=== PATIENT | female | born 1945 | race Caucasian/White ===

== ENCOUNTER 2024-02-06 09:22 | Outpatient (CLI) | payer MEDICARE, SELFPAY ==
[2024-02-06 18:47] LABS: Basophils # 0.1 K/mm3 (0-0.2); Eosinophils # 0.1 K/mm3 (0.0-0.4); Eosinophils % 2.1 % (0.1-12.0); Hematocrit 46.1 % (37.0-47.0); Hemoglobin 14.2 g/dL (12.2-16.2); Lymphocytes # 1.5 K/mm3 (0.7-4.5); Lymphocytes % 30.6 % (10-50); Mean Corpuscular HGB Conc 30.8 g/dL (31.8-35.4); Mean Corpuscular Hemoglobin 29.7 pg (27.0-31.2); Mean Corpuscular Volume 96.3 fl (81-99); Mean Platelet Volume 8.6 fl (7.4-10.4); Monocytes # 0.4 K/mm3 (0.1-1.0); Neutrophils # 2.9 K/mm3 (1.8-7.8); Neutrophils % 58.3 % (37.0-80.0); Platelet Count 252 K/mm3 (142-424); Red Blood Count 4.79 M/mm3 (4.20-5.40); Red Cell Distribution Width 14.1 % (11.5-17.5)
[2024-02-06 19:13] LABS: Alanine Aminotransferase 18 U/L (12-78); Albumin/Globulin Ratio 1.3 (1.1-1.8); Alkaline Phosphatase 99 U/L (38-126); Anion Gap 9.5 mEq/L (5-15); Aspartate Amino Transferase 29 U/L (14-36); Bilirubin,Total 0.6 mg/dl (0.2-1.3); Blood Urea Nitrogen 20 mg/dl (7-17); Carbon Dioxide 28 mmol/L (22.0-30.0); Chloride 106 mmol/L (98-107); Chol/HDL Ratio 5.7 (1-3.5); Cholesterol 258 mg/dl (140-200); Estimated Glomerular Filt Rate 81 ml/min (>60); GFR (African American) 98 ML/MIN (>60); Glucose 113 mg/dl (74-100); HDL Cholesterol 45 mg/dl (40-60); Potassium 4.5 mmoL/L (3.5-5.1); Sodium 139 mmol/L (136-145); Triglycerides 190 mg/dl (30-150); VLDL Cholesterol 38 mg/dL (0-40)
[2024-02-06 19:25] LABS: Direct LDL Cholesterol 163.31 mg/dL (100-129)
[2024-02-06 19:29] LABS: T4 (Thyroxine) 9.4 ug/dl (5.53-11.0)
[2024-02-06 19:43] LABS: Thyroid Stimulating Hormone 2.14 uIU/mL (0.465-4.68)
[2024-02-06 21:12] LABS: Hemoglobin A1C 6.1 % (4.0-6.0)
== END 2024-02-06 23:59 | disposition home or self-care (01) ==
LOC: LAB.DROPOF 02-09 09:23
PROVIDERS: PCP Family Medicine; Visit Provider Family Medicine
DX: E78.5 Hyperlipidemia, unspecified (principal); E11.9 Type 2 diabetes mellitus without complications; Z76.89 Persons encountering health services in other specified circumstances; E07.9 Disorder of thyroid, unspecified
CPT/HCPCS: 80050; 80053; 80061; 83036; 84436; 84443; 85025

== ENCOUNTER 2024-07-21 20:57 | Outpatient (CLI) | payer MEDICARE, SELFPAY ==
[2024-07-21 21:14] LABS: Basophils % 0.4 % (0.1-2.0); Eosinophils # 0.1 K/mm3 (0.0-0.4); Eosinophils % 1.6 % (0.1-12.0); Hematocrit 43.5 % (37.0-47.0); Hemoglobin 14.3 g/dL (12.2-16.2); Lymphocytes # 1.7 K/mm3 (0.7-4.5); Lymphocytes % 33.9 % (10-50); Mean Corpuscular HGB Conc 32.9 g/dL (31.8-35.4); Mean Corpuscular Hemoglobin 30.2 pg (27.0-31.2); Mean Platelet Volume 10.8 fl (7.4-10.4); Monocytes # 0.5 K/mm3 (0.1-1.0); Monocytes % 9.2 % (1.7-9.3); Neutrophils # 2.7 K/mm3 (1.8-7.8); Neutrophils % 54.7 % (37.0-80.0); Platelet Count 210 K/mm3 (142-424); Red Blood Count 4.73 M/mm3 (4.20-5.40); Red Cell Distribution Width 13.3 % (11.5-17.5); White Blood Count 4.9 K/mm3 (4.8-10.8)
[2024-07-21 21:32] LABS: Albumin Level 4.4 g/dl (3.5-5.0); Chloride 105 mmol/L (98-107); Sodium 139 mmol/L (136-145)
[2024-07-21 21:33] LABS: Potassium 4.6 mmoL/L (3.5-5.1)
[2024-07-21 21:35] LABS: Alanine Aminotransferase 20 U/L (12-78); Albumin/Globulin Ratio 1.9 (1.1-1.8); Alkaline Phosphatase 98 U/L (38-126); Anion Gap 12.6 mEq/L (5-15); Aspartate Amino Transferase 30 U/L (14-36); Bilirubin,Total 0.7 mg/dl (0.2-1.3); Blood Urea Nitrogen 21 mg/dl (7-17); Carbon Dioxide 26 mmol/L (22.0-30.0); Cholesterol 236 mg/dl (140-200); Estimated Glomerular Filt Rate 97 ml/min (>60); GFR (African American) 117 ML/MIN (>60); Globulin 2.3 g/dL (1.3-3.2); Total Protein,Serum 6.7 g/dl (6.3-8.2); Triglycerides 166 mg/dl (30-150); VLDL Cholesterol 33 mg/dL (0-40)
[2024-07-21 21:36] LABS: Calcium 9.8 mg/dl (8.4-10.2); Chol/HDL Ratio 7.2 (1-3.5); Glucose 111 mg/dl (74-100); HDL Cholesterol 33 mg/dl (40-60)
[2024-07-21 21:47] LABS: Direct LDL Cholesterol 150.09 mg/dL (100-129)
[2024-07-21 21:52] LABS: T4 (Thyroxine) 10.5 ug/dl (5.53-11.0)
[2024-07-21 22:06] LABS: Thyroid Stimulating Hormone 2.14 uIU/mL (0.465-4.68)
== END 2024-07-21 23:59 | disposition home or self-care (01) ==
LOC: LAB.DROPOF 20:57
PROVIDERS: PCP Family Medicine; Visit Provider Family Medicine
DX: R63.5 Abnormal weight gain (principal); E11.9 Type 2 diabetes mellitus without complications; Z68.38 Body mass index [BMI] 38.0-38.9, adult
CPT/HCPCS: 80053; 80061; 84436; 84443; 85025

== ENCOUNTER 2024-07-30 14:09 | Outpatient (CLI) | payer MEDICARE, SELFPAY ==
--- NOTE | 2024-07-30 14:11 | US_ITS ---
FINAL REPORT TECHNIQUE: Sonographic images of the thyroid gland were obtained in the longitudinal and transverse planes. CLINICAL HISTORY: Hyperthyroidism FINDINGS: The right lobe measures 2.3 x 5.5 x 2.2 cm. There are multiple right thyroid nodules. A mixed cystic and solid nodule measures 18 mm in long axis. This is a TI-RADS category 3 there is a 14 mm hypoechoic nodule that is a TI-RADS category 4. There are several smaller nodules which are TI-RADS category 3 or 4. The left lobe measures 3.0 x 5.9 x 2.5 cm. There is a 4 cm hypoechoic nodule with macrocalcifications. This is a TI-RADS category 4. There are several additional very small nodules on the left which may be tiny colloid cysts. The isthmus measures 12 mm. This is enlarged. There is an isoechoic nodule in the isthmus measuring 16 mm. This is a TI-RADS category 3. IMPRESSION: 1. TI-RADS category 4 right thyroid nodule. Based on size, follow-up is recommended. 2. TI-RADS category 4 left thyroid nodule. FNA recommended. 3. Additional nodules. Favor multinodular goiter. These nodules can be followed up on follow-up for the right TI-RADS category 4 nodule. Authenticated and ERN
== END 2024-07-30 23:59 | disposition home or self-care (01) ==
LOC: RAD 14:11
PROVIDERS: PCP Family Medicine; Visit Provider Family Medicine
DX: E04.9 Nontoxic goiter, unspecified (principal); E05.90 Thyrotoxicosis, unspecified without thyrotoxic crisis or storm
CPT/HCPCS: 76536

== ENCOUNTER 2024-08-20 09:02 | Outpatient (CLI) | payer MEDICARE, SELFPAY ==
--- NOTE | 2024-08-20 09:03 | US_ITS ---
FINAL REPORT CLINICAL HISTORY: KARLA KHAN -- LT THYROID NODULE FINDINGS: Ultrasound guided thyroid biopsy. HISTORY: Thyroid mass. PROCEDURE: After informed consent was obtained and a time-out was performed, the patient was prepped and draped in usual sterile fashion over the anterior neck. Utilizing local anesthesia and sterile technique with a 25-gauge needle, access to the lesion was obtained. Four passes were made. The patient received no conscious sedation. The patient tolerated the procedure well and left the department in good condition. IMPRESSION: Status post ultrasound guided biopsy of a thyroid nodule without immediate complication. Films reviewed , interpreted and dictated by Dr. Richey. Transcribed by Karla Jameson PA-C. Reviewed, Interpreted and Dictated by Markus Richey MD Transcribed by ERIN Centeno Authenticated and [facility]
== END 2024-08-20 23:59 | disposition home or self-care (01) ==
LOC: RAD 09:03
PROVIDERS: PCP Family Medicine; Visit Provider Nurse Practitioner
DX: E04.1 Nontoxic single thyroid nodule (principal)
CPT/HCPCS: 10005; 88173; 88305

== ENCOUNTER 2024-10-01 07:46 | Outpatient (CLI) | payer MEDICARE, OTHER, SELFPAY ==
[2024-10-01 18:25] LABS: T4 (Thyroxine) 11.2 ug/dl (5.53-11.0)
[2024-10-01 18:37] LABS: Hemoglobin A1C 5.8 % (4.0-6.0)
[2024-10-01 18:38] LABS: Thyroid Stimulating Hormone 0.04 uIU/mL (0.465-4.68)
== END 2024-10-01 23:59 | disposition home or self-care (01) ==
LOC: LAB.DROPOF 10-02 07:46
PROVIDERS: PCP Family Medicine; Visit Provider Family Medicine
DX: E05.90 Thyrotoxicosis, unspecified without thyrotoxic crisis or storm (principal); E11.9 Type 2 diabetes mellitus without complications
CPT/HCPCS: 83036; 84436; 84443

== ENCOUNTER 2024-10-14 14:48 | Outpatient (CLI) | payer MEDICARE, OTHER, SELFPAY | END 2024-10-14 23:59 | disposition home or self-care (01) | LOC: RT 14:52 | PROVIDERS: PCP Family Medicine; Visit Provider Internal Medicine | DX: R00.1 Bradycardia, unspecified (principal) | CPT/HCPCS: 93270 ==

== ENCOUNTER 2024-11-03 10:53 | Outpatient (CLI) | payer MEDICARE, OTHER, SELFPAY ==
--- NOTE | 2024-11-03 | CA_ITS ---
APPROVED REPORT Exam: Pharmacologic Technologist: Karen Riddle Ht: 5 ft 5 in Wt: 212 lbs BSA: 2.03 m2 HR: 48 bpm BP: 172/94 mmHg Stress Test Details Test: Lexiscan HR Resting HR: 48 bpm Max Heart Rate (APMHR): 142.761445 bpm Max HR Achieved: 79 bpm Target HR (85% APMHR): 120.712459 bpm % of APMHR: 55.63 Recovery HR: 56 bpm BP Resting BP: 172.0/94.0 mmHg Max BP: 183.0/75.0 mmHg Recovery BP: 162.0/84.0 mmHg ECG Stress ECG Conclusion Symptoms: shortness of breath with lexiscan infusion. Neck tightness, arm numbness and pain Arrhythmias/Ectopy: PVCs noted ST-T Changes: Unremarkable with Lexiscan Electronically signed by : Melina Hernandez MD 11/03/2024 23:32:32
--- NOTE | 2024-11-03 10:56 | CA_ITS ---
APPROVED REPORT EXAM: Comprehensive 2D, Doppler, and color-flow Echocardiogram Sql Tech: Sabrina Ashley CRT Ht: 5 ft 5 in Wt: 212lbs BSA: 2.03 BP: 182/68 mmHg Indications: Chest Pain, Diabetes, Palpitations, Hypertension/HDD, Ervin cell cancer 2D Dimensions Left Atrium 3.76 cm LVEF (Salinas's) 51.00 % RVID Base (AP4) 2.54 cm (M/F) 2.5-4.1 LV Volume 101.90 mL LVOT 1.91 cm (M/F) 1.5-2.5 LA Volume 45.50 mL LA Volume Index 22.40 mL/m2 (M/F) 16-34 EF AP4 53.00 % EF AP2 47.3 % EF BP 51.0 % GL Strain -21.5 % M-Mode Dimensions RVDd 3.42 cm (0.9-2.6) LVDd 5.02 cm (3.5-5.7) Ao Diam 3.89 cm (2.0-3.7) LVDs 3.24 cm (3.5-5.7) IVSd 1.14 cm (0.6-1.1) PWd 0.89 cm (0.6-1.1) EF (Teich) 64.60% FS 35.50% EDV (Teich) 119.30 mL ESV (Teich) 42.20 mL LV Diastology E Decel Time 200 (160-240 msec) E/A Ratio 0.69 Aortic Valve LVOT Max 115.0 (70-110 cm/s) MIRZA Index 1.03 cm2/m2 LVOT VTI 29.24 cm AoV Peak Cisco. 195.0 (50-130 cm/s) AI PHT 636.00 ms AO Peak GR. 10.80 mmHg AO Mean GR. 7.70 (<5 mmHg) AO VTI 40.0 (18-25 cm) MIRZA (VTI) 2.10 (2.5-4.5 cm2) Mitral Valve MV E Max Cisco. 57.0 (40-130 cm/s) MV A Velocity 83.0 (40-130 cm/s) E/A Ratio 0.69 MV Decel. Time 200 (160-240 ms) Tricuspid Valve TR P. Velocity 177.00 cm/s RAP Estimate 10.00 mmHg RVSP 22.60 mmHg Left Ventricle The left ventricle is normal size. The left ventricular systolic function is normal. The left ventricular ejection fraction is within the normal range. There is increased LV wall thickness. There is normal LV segmental wall motion. Transmitral Doppler flow pattern suggests impaired LV relaxation. LVEF is 55%. Right Ventricle The right ventricle is normal size. The right ventricular systolic function is normal. Atria The left atrium is mildly dilated. The right atrium size is normal. Color Doppler is indeterminate for evaluation of interatrial shunt. Aortic Valve Aortic valve is mildly thickened. There is no aortic valvular stenosis. Mild aortic regurgitation. Mitral Valve The mitral valve is normal in structure. No evidence of mitral valve stenosis. Mild mitral regurgitation. Tricuspid Valve Tricuspid valve is grossly normal in structure and function. Trace tricuspid regurgitation. There is insufficient TR jet to estimate RVSP. Pulmonic Valve The pulmonary valve is normal in structure. Trace pulmonic regurgitation. Great Vessels The aortic root is normal in size. The ascending aorta is normal in size. IVC is normal in size and collapses >50% with inspiration. Pericardium There is no pericardial effusion. Other Information Study Quality: Fair Conclusion Normal biventricular systolic function. Mild LA dilation. Mild AI, mild MR. Color Doppler is indeterminate for evaluation of interatrial shunt. Electronically signed by : Melina Hernandez MD 11/08/2024 22:19:54
--- NOTE | 2024-11-03 12:00 | NM_ITS ---
APPROVED REPORT Exam: Nuclear Stress Test Indication: cp..soa..plapitations..fatigue Patient Location: Outpatient Stress Tech: Karen Riddle NM Tech:Daija Gutierrez, ARRT, RT (R)(N) Ht: 5 ft 6 in Wt: 215 lbs Bra Size: 44c HR: 66 bpm BP: 172/94 mmHg BSA: 2.06 m2 TID: 1.13 BMI: 34.6 History: cp..soa..plapitations..fatigue Procedure: Patient received 0.4 mg of intravenous Lexiscan, resting heart rate 66 bpm, resting blood pressure 172/94 mmHg, with Lexiscan maximum heart rate achieved was 80 bpm which is 85 % of the maximum predicted heart rate and blood pressure was 183/75 mmHg. With Lexiscan, patient denied any complaint of chest pain. Cardiac Stress and Resting SPECT Images: Cardiac Stress and Resting SPECT images were obtained using technetium 99m Myoview 32.4 mCi stress and 10.98 mCi at rest. Technically difficult study due to significant soft tissue overlap of the cardiac borders. This may affect the diagnostic interpretation of the study findings. Resting and stress imaging in supine and prone positions demonstrate a small sized, moderate, reversible perfusion defect in the basal inferior LV wall. Gated imaging demonstrates normal global LV systolic function. LVEF is calculated at 59%. Conclusion: Technically difficult study. Small sized, moderate, reversible perfusion defect in the basal inferior LV wall. Findings are suggestive of reversible ischemia. Gated imaging demonstrates normal global LV systolic function. LVEF is calculated at 59%. Electronically signed by : Melina Hernandez MD 11/03/2024 23:28:53
[2024-11-03] MEDS: REGADENOSON 0.4MG/5ML SYRINGE 0.4 MG IV (14:33)
[2024-11-03] MEDS: SODIUM CHLORIDE 0.9% 10ML SYR (RAD ONLY) 10 ML IV ×2 (14:34)
[2024-11-03] MEDS: ISOTOPE MYOVIEW (PER STUDY) 1 DOSE IV (14:34)
== END 2024-11-03 23:59 | disposition home or self-care (01) ==
LOC: RT 10:54
PROVIDERS: PCP Family Medicine; Visit Provider Internal Medicine
DX: I08.0 Rheumatic disorders of both mitral and aortic valves (principal); I11.9 Hypertensive heart disease without heart failure; I49.3 Ventricular premature depolarization; C4A.9 Merkel cell carcinoma, unspecified; R94.31 Abnormal electrocardiogram [ECG] [EKG]; R94.39 Abnormal result of other cardiovascular function study; E11.9 Type 2 diabetes mellitus without complications
CPT/HCPCS: 78452; 93017; 93018; 93306; A9502; J2785

== ENCOUNTER 2025-01-21 09:02 | Outpatient (CLI) | payer MEDICARE, OTHER, SELFPAY ==
--- OUTSIDE RECORDS SUMMARY | 2024-12-28 13:00 | XMS_ITS | Encounter Summary ---
Author Organization [facility] Address [address] [place] [address] Care Team Providers Care Art Therapy Specialist Name Role Phone Ernesto Hernandez MD Primary Care Provider [phone] Reason for Visit * Reason Comments LOW TSH Encounter Details Date Type Department Care Team (Late st Contact Info) Description 12/28/2024 1:00 PM EDT Office Visit [facility] [address] [address] Mamadou Singletary PA-C [address] [place], [place] [address] [address] Hyperthyroidism (Primary Dx); Multinodular goiter Social History Tobacco Use Types Packs/Day Years Used Date Smoking Tobacco: Never Passive Smoke Exposure: Never Smokeless Tobacco: Never Alcohol Use Standard Drinks/Week Comments Never 0 (1 standard drink = 0.6 oz pur e alcohol) Abuse Screen Answer Date Recorded Unsafe at Home or Work/School Not on file Feels Threatened by Someone? Not on file 02/2023 Does Anyone Keep You from Co ntacting Others or Doint Things Outside the Home? Not on file 03/17/2023 Physical Sign of Abuse Present Not on file 1 Housing Stability Answer Date Recorded Current Living Arrangements Not on file 02/2023 Potentially Unsafe Housing Conditions Not on jorge e 03/17/2023 Family and Community Support Answer Paul e Recorded Help with Day-to-Day Activities Not on file 03/17/2023 Lonely or Isolated Not on file 03/17/2023 Employment Answer Date Recorded Do you want help finding or keeping work or a franki b? Not on file 03/17/2023 Disabilities Answer Date Recorded Concentrating, Remembering, or Making Decisions Difficulty Not on file 03/17/2023 Doing Errands Independently Difficulty Not on fi le 03/17/2023 Education Answer Date Recorded Help with school or training? Not on file Preferred Language Not on file 03/17/2023 Comments Unknown Sex and Gender Information Value Date Recorded Sex Assigned at Not on file Legal Sex Female 8:09 PM EDT Gender Identity Not on file Sexual Orientation Not on file documented as of this encounter Last Filed Vital Signs Vital Sign Reading Time Taken Comments Blood Pressure 126/82 12/28/2024 1:19 PM EDT Pulse 81 12/28/2024 1:19 PM EDT Temperature - - Respiratory Rate - - Oxygen Saturation 98% 12/28/2024 1:19 PM EDT Inhaled Oxygen Concentration - - Weight 91.6 kg (202 lb) 12/28/2024 1:19 PM EDT Height 167.6 cm (5' 6 ) 12/28/2024 1:19 PM EDT Body Mass Index 32.6 12/28/2024 1:19 PM EDT documented in this encounter Progress Notes * Mamadou Singletary PA-C - 12/28/2024 4:16 PM EDTAssociated Problem(s): Multinodular goiter Most like a hot nodule or hot nodules are because of patient's hyperthyroidism Advised patient if we cannot control thyroid function with medication, radioactive iodine treatmentor surgery are the other options Patient has had a stable 4 cm thyroid nodule for almost 10 years now, 2 biopsies have both been negative * Mamadou Singletary PA-C - 12/28/2024 4:15 PM EDTAssociated Problem(s): Hyperthyroidism Per history, it sounds like patient has had hyperthyroidism/subclinical hyperthyroidism for years, and most likely due to toxic nodules No uptake and scan results are available for review, despite reviewing records from [facility] and [facility] Most likely, well-controlled on methimazole, but patient had abdominal pain and side effects and stopped the medication in 2023 Patient is never been tried on PTU. Advised patient other options are radioactive iodine therapy and thyroidectomy if she is intolerantto PTU as well Patient already has paroxysmal atrial fibrillation, which can be triggered by hyperthyroidism Started on PTU 50 mg 3 times daily, warned about rash, leukopenia, and elevated liver enzymes If patient has any abdominal pain or rash, she is to stop the medication immediately and call the office Recheck labs today including TSH, free T4, free T3, TSI * Mamadou Singletary PA-C - 12/28/2024 1:00 PM EDT Images from the original note were not included. Office Note Date: 12/28/2024 Patient Name: Lenora Rodriguez : 1945 Chief Complaint Patient presents with LOW TSH History of Present Illness: Lenora Rodriguez is a 79 y.o. female who presents for LOW TSH Hyperthyroidism due to multinodular goiter at young age (first diagnosed with hypothyroidism after pregnancies, then hyperthyroidism years later). Symptoms are: intermittent a. Fib., no weight loss, always has had tremor, no diarrhea, heat and cold intolerance. Symptoms began in: months ago. They are fluctuating a bit. Lab work showed overactive function. Patient has intolerance to methimazole (off since end of 2023)with elevated liver enzymes, pancreatitis, abdominal pain, fatigue. Has history of multiple thyroid nodules. Patient has had two biopsies on left side. 2019 had first biopsy, then again in 2023. They biopsied same nodule both times. TSH on 10/01/2024 was 0.04, on 07/21/2024 2.14. Total T4 was 11.2 on 10/01/2024, on 07/21/2024 it was 10.5 Subjective Patient was born where: [place]. 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 High iodine intake: No Family hx of thyroid disease: Yes, describe: mother had hyper and hypothyroidism grandparents had thyroid problems. Review of Systems: Review of Systems Constitutional: Positive for diaphoresis. Negative for unexpected weight change. Cardiovascular: Positive for palpitations. Gastrointestinal: Negative for diarrhea. Endocrine: Positive for cold intolerance and heat intolerance. Neurological: Positive for tremors. The following portions of the patient's history were reviewed and updated as appropriate: allergies, current medications, past family history, past medical history, past social history, past surgicalhistory, and problem list. Objective Visit Vitals BP 126/82 (BP Location: Right arm, Patient Position: Sitting) Pulse 81 Ht 167.6 cm (66 ) Wt 91.6 kg (202 lb) SpO2 98% BMI 32.60 kg/m?? Physical Exam: Physical Exam Vitals reviewed. Constitutional: General: She is not in acute distress. Appearance: Normal appearance. She is obese. Neck: Thyroid: Thyromegaly present. No thyroid mass or thyroid tenderness. Comments: Previous biopsy per patient Cardiovascular: Rate and Rhythm: Normal rate and regular rhythm. Heart sounds: Normal heart sounds. Pulmonary: Effort: Pulmonary effort is normal. Breath sounds: Normal breath sounds. Musculoskeletal: Cervical back: Neck supple. Lymphadenopathy: Cervical: No cervical adenopathy. Skin: General: Skin is warm and dry. Neurological: General: No focal deficit present. Mental Status: She is alert and oriented to person, place, and time. Mental status is at baseline. Psychiatric: Mood and Affect: Mood normal. Behavior: Behavior normal. Thought Content: Thought content normal. Judgment: Judgment normal. Labs: TSH No results found for: TSHBASE Free T4 Free T4 Date Value Ref Range Status 07/23/2017 1.2 0.8 - 1.7 ng/dL Final Comment: REFERENCE INTERVAL: Thyroxine Free Access complete set of age- and/or gender-specific reference intervals for this test in the [facility] Test Directory (D1G). T3 No results found for: F0FEOBZ TPO No results found for: THYROIDAB TG AB No results found for: THGAB TG No results found for: THYROGLB CBC w/DIFF Lab Results Component Value Date WBC 5.93 08/11/2018 RBC 5 08/11/2018 HGB 15.4 08/11/2018 HCT 48 08/11/2018 MCV 96 08/11/2018 MCH 30.8 08/11/2018 MCHC 32.1 08/11/2018 RDW 12.6 08/11/2018 MPV 9.3 08/11/2018 PLT 208 08/11/2018 LYMPHORELPCT 39.5 08/11/2018 MONORELPCT 8.9 08/11/2018 EOSRELPCT 2.4 08/11/2018 BASORELPCT 0.5 08/11/2018 AUTOIGPER 48.2 08/11/2018 AUTOIGPER 0.5 08/11/2018 LYMPHSABS 2.34 08/11/2018 MONOSABS 0.53 08/11/2018 EOSABS 0.14 08/11/2018 BASOSABS 0.03 08/11/2018 AUTOIGNUM 0.03 08/11/2018 NRBC 0 08/11/2018 CT of soft tissue neck with IV contrast, 11/12/2016 Ill-defined 4 cm left inferior thyroid nodule with coarse calcification is less well evaluated because of beam hardening artifact and better evaluated with recent thyroid ultrasound and biopsy. 09/04/2016 Ultrasound Examination of the thyroid and neck: Patient's consent was obtained. Indication: Thyroid nodule, goiter. Identified by her general practitioner some 40 years ago. No FNA was performed. She reports that the left lobe nodule is smaller than it used to be now than in the past. Using linear high frequency and resolution transducers, B-Mode ultrasound examination of the neck was performed in real time in the transverse and cranio-caudal axis and at multiple levels of the neck. Measurements are in centimeters unless otherwise specified and are recorded in the following order: AP, transverse and sagittal respectively. 1) The right lobe measures: 1.83/1.56/4.77 2) The left lobe measures: 2.23/2.69/4.96 3) Isthmus: 0.38 4) The texture and blood flow within the thyroid lobes: Normal within the intervening portions of the thyroid lobes 5) Other findings are as follows: Multiple nodules are identified within both lobes. The right lobe contains at least 2 subcentimeter spongiform nodule without blood flow. The left lobe contains a spongiform nodule that measures 1.9/2.05/4.07 cm with peripheral blood flow. Lunate shaped central calcification visualized which is unaccompanied by internal blood flow. The isthmus also contains a spongiform nodule measuring 0.71/1.07/1.16 6) Lymphadenopathy: None observed. Multinodular thyroid lobes with several spongiform textured nodules. No internal blood flow or abnormal calcifications seen. Recommendation: She will undergo a repeat TSH testing months after completion of her chemotherapy for her Merckle cell cancer. If her TSH remains low, we will proceeded to a thyroid uptake study prior to deciding on the need for FNA. Dev. Enrico MARCELO advanced developer, Division of Endocrinology, Thyroid and parathyroid tumor program, [facility], [facility]. [facility] office: Tel [phone] and Fax - [phone] [facility] office: Tel: [phone] and Fax [phone] Errors: Courtesy of Dragon Dictation. Exam End: 09/04/16 13:26 Last Resulted: 09/04/16 18:04 Received From: [facility] NECK ULTRASOUND Pre-op Diagnosis: toxic multi-nodular goiter Anesthesia: None Complications: none Estimated Blood Loss: none Indications: sizing-surveillance Procedure: neck US The patient was placed in a semi-recumbent position with mild neck extension. Real time B-mode ultrasound on the neck was performed in transverse/ axial and longitudinal/ sagittal planes. MNG with stable L dom coarsely calcified isoechoic spongiform toxic 4.4cm (prior 4cm) and R sup mildly hypoechoic 1.7cm (-rior 1.8cm) and bilateral benign appearing isoechoic 1-1.5cm nodules without suspicious features or nodes. The patient tolerated the procedure well and without side effects. Assessment / Plan Assessment & Plan: Diagnoses and all orders for this visit: 1. Hyperthyroidism (Primary) Assessment & Plan: Per history, it sounds like patient has had hyperthyroidism/subclinical hyperthyroidism for years, and most likely due to toxic nodules No uptake and scan results are available for review, despite reviewing records from [facility] and [facility] Most likely, well-controlled on methimazole, but patient had abdominal pain and side effects and stopped the medication in 2023 Patient is never been tried on PTU. Advised patient other options are radioactive iodine therapy and thyroidectomy if she is intolerantto PTU as well Patient already has paroxysmal atrial fibrillation, which can be triggered by hyperthyroidism Started on PTU 50 mg 3 times daily, warned about rash, leukopenia, and elevated liver enzymes If patient has any abdominal pain or rash, she is to stop the medication immediately and call the office Recheck labs today including TSH, free T4, free T3, TSI Orders: - TSH - T4, Free - T3, Free - Thyroid Stimulating Immunoglobulin - propylthiouracil (PTU) 50 MG tablet; Take 1 tablet by mouth 3 (Three) Times a Day. Dispense: 90 tablet; Refill: 11 2. Multinodular goiter Assessment & Plan: Most like a hot nodule or hot nodules are because of patient's hyperthyroidism Advised patient if we cannot control thyroid function with medication, radioactive iodine treatmentor surgery are the other options Patient has had a stable 4 cm thyroid nodule for almost 10 years now, 2 biopsies have both been negative Current Outpatient Medications Medication Instructions ascorbic acid (VITAMIN C) 500 MG capsule controlled-release CR capsule 3 capsules, Daily Barberry-Oreg Grape-Goldenseal (BERBERINE COMPLEX PO) Daily Ketotifen Fumarate (ZADITOR) 0.035 % solution 1 drop, 2 Times Daily Magnesium Oxide -Mg Supplement 400 mg, Daily propylthiouracil (PTU) 50 mg, Oral, 3 Times Daily TURMERIC PO 1 tablet, Daily Unable to find 1 each, Daily vitamin B-12 (CYANOCOBALAMIN) 500 mcg, Daily vitamin D3 5,000 Units, Daily No follow-ups on file. Electronically signed by: Mamadou Singletary PA-C 12/28/2024 documented in this encounter Plan of Treatment Upcoming Encounters Date Type Department Care Team (Late st Contact Info) Description 03/03/2025 2:15 PM EDT Office Visit [facility] [address] [address] Mamadou Singletary PA-C [address] [place] [id number] documented as of this encounter Procedures Procedure Name Priority Date/Time Associated Diagnosis Comments THYROID STIMULATING IMMUNOGLOBULIN Routine 12/28/2024 1:52 PM EDT Hyperthyroidism T3, FREE Routine 12/28/2024 1:52 PM EDT Hyperthyroidism TSH Routine 12/28/2024 1:52 PM EDT Hyperthyroidism T4, FREE Routine 12/28/2024 1:52 PM EDT Hyperthyroidism documented in this encounter Results * Thyroid Stimulating Immunoglobulin (12/28/2024 1:52 PM EDT) Thyroid Stimulating Immunoglobulin <0.10 0.00 - 0.55 IU/L 01/02/2025 4:09 PM EDT [facility] Blood Structure of left upper limb / Unknown Venipuncture / Unknown 12/28/2024 1:52 PM EDT 12/28/2024 1:53 PM EDT Narrative [facility] - 01/02/2025 4:09 PM EDT Performed at: [facility] [id number] [employer] Grazier: Eder Mauricio MD, Phone: [phone] [employer] PA-C LAB BLOOD ORDERABLES Final Result [facility] [address] [place] [address], [place] [phone] * T3, Free (12/28/2024 1:52 PM EDT) Pathologist [facility] T3, Free 4.13 2.00 - 4.40 pg/mL 12/29/2024 12:47 AM EDT [facility] Blood Venipuncture / Unknown 12/28/2024 1:52 PM EDT 12/28/2024 1:53 PM EDT [employer] PA-C LAB BLOOD ORDERABLES Final Result [facility]
[address] [place] [address], [place] [phone] * T4, Free (12/28/2024 1:52 PM EDT) Free T4 1.32 0.92 - 1.68 ng/dL 12/29/2024 12:47 AM EDT [facility] Blood Venipuncture / Unknown 12/28/2024 1:52 PM EDT 12/28/2024 1:53 PM EDT Mamadou Kashlessnacot PA-C LAB BLOOD ORDERABLES Final Result [facility]
[address] [place] [address], * (ABNORMAL) TSH (12/28/2024 1:52 PM EDT) TSH 0.017(L) 0.270 - 4.200 uIU/mL 12/29/2024 12:47 AM EDT [facility] Blood Venipuncture / Unknown 12/28/2024 1:52 PM EDT 12/28/2024 1:53 PM EDT Mamadou Kashlessnacot PA-C LAB BLOOD ORDERABLES Final Result Performing Organization Address City/[facility]/ZIP Co de Phone Number [facility]
[address] [place] [address], documented in this encounter Visit Diagnoses Diagnosis Hyperthyroidism- Primary Thyrotoxicosis without mention of goiter or other cause, without mention of thyrotoxic crisis or storm Multinodular goiter Nontoxic multinodular goiter documented in this encounter Care Teams Art Therapy Specialist Relationship Specialty Start Date End Date Ernesto Hernandez MD [address] [facility] [address] [place] [address] PCP - General Internal Medicine 12/28/24 01/17/25 documented as of this encounter
--- OUTSIDE RECORDS SUMMARY | 2025-01-18 13:00 | XMS_ITS | Encounter Summary ---
Author Organization [facility] Address [address] [place] [address] Care Team Providers Care Bedspread Cutter Name Role Phone Mamadou Singletary PA-C Primary Care Provider [phone] Reason for Visit * MRI/CAT/PET Scan (Routine) - Closed Specialty Diagnoses / Procedures Referred By Ru don Referred To Contact Radiology Diagnoses Multinodular goiter Hyperthyroidism Procedures NM Therapy Hyperthyroid Initial NM Thyroid Therapy Ablation Basic Mamadou Singletary PA-C [address] [facility] [address] [place] [address] Phone: tel: fax: [facility] [address] [place] [address] Phone: tel: Referral ID Status Reason Start Date Expiration Date Visits Re quested Visits Authorized [id number] Closed 01/05/2025 04/06/2026 1 1 Encounter Details Date Type Department Care Team (Latest Contact Info) Description 01/18/2025 1:00 PM EDT - 01/18/2025 11:59 PM EDT Hospital Encounter [facility] [address] [place] [phone] Multinodular goiter; Hyperthyroidism Discharge Disposition: Home or [...] 03/03/2025 2:15 PM EDT Office Visit [facility] [address] [phone] Mamadou Singletary PA-C [address] [address] Pending Results Name Type Priority Associated Diagnoses Date /Time NM Therapy Hyperthyroid Initial Imaging Routine Multinodular goiter Hyperthyroidism 01/18/2025 2:33 PM EDT Scheduled Orders Name Type Priority Associated Diagnoses Orde r Schedule NM Therapy Hyperthyroid Initial Imaging Routine Multinodular goiter Hyperthyroidism Once for 1 Occurrences starting 01/18/2025 until 01/18/2025 documented as of this encounter Visit Diagnoses Diagnosis Multinodular goiter [...] (1 capsule), Oral, Once in Imaging, On 01/18/25 at 1401, For 1 dose, THERAPEUTIC, Millicuries: 30.8 Given 01/18/2025 2:01 PM EDT 30.8 millicuries documented in this encounter Care Teams Bedspread Cutter Relationship Specialty Start Date End Date Mamadou Singletary PA-C [address] [address] PCP - General Physician Rolled Glass Crosscutter 01/18/25 documented as of this encounter
--- OUTSIDE RECORDS SUMMARY | 2025-01-21 09:04 | XMS_ITS | Encounter Summary ---
Author Organization [facility] Address [address] [place] [phone] Care Team Providers Care Fluid Dynamicist Name Role Phone Mamadou Singletary PA-C Primary Care Provider [phone] Encounter Details Date Type Department Care Team (Late st Contact Info) Description 12/29/2024 Results Follow-Up [facility] [address] [phone] Mamadou Singletary PA-C [address] [place] [address] Social History Tobacco Use Types Packs/Day Years [...] on file documented as of this encounter Miscellaneous Notes * Telephone Encounter - Mamadou Singletary PA-C - 01/03/2025 9:34 AM EDT Please call patient and let her know that her screening test for Graves disease was negative. She most likely has hyperthyroidism that is caused by one thyroid nodule or multiple nodules in her thyroid gland. * Telephone Encounter - Mamadou Singletary PA-C - 12/29/2024 8:53 AM EDT Thyroid labs are worsening since being off methimazole. Please continue PTU and we will recheck labs again at your next visit. I was able to review records from multiple hospitals, and your thyroid nodule on left side has beenthere for over ten years and is unchanged in size. documented in this encounter Plan of Treatment Upcoming Encounters Date Type Department Care Team (Late st Contact Info) Description 03/03/2025 2:15 PM EDT Office Visit [facility] END[facility]CRINOLOGY [address] [employer] [address] [phone] Mamadou Singletary PA-C [address] [address] documented as of this encounter Visit Diagnoses Not on filedocumented in this encounter Care Teams Fluid Dynamicist Relationship Specialty Start Date End Date Mamadou Singletary PA-C [address] [address] PCP - General Physician Marketing Communications Leader 01/18/25 documented as of this encounter
--- OUTSIDE RECORDS SUMMARY | 2025-01-21 09:04 | XMS_ITS | Clinical Summary ---
Author Organization [facility] Address [address] [place] [address] Care Team Providers Care Fast Food Crew Member Name Role Phone None, None Primary Care Provider Unavailabl e Allergies Active Allergy Reactions Criticality Noted Date Comments Clindamycin Other (See Comments) 02/05/2012 Abdominal pain/esop. pain Clonidine Medium 02/05/2012 Muscle aches Hydromorphone (Bulk) Other (See Comments) High 02/04 Elevated BP Erythromycin Nausea And Vomiting Medium 02/05/2012 Morphine Other (See Comments) High 02/05/2012 Mental status change Niacin Swelling 02/05/2012 redness Sulfa (Sulfonamide Antibiotics) Rash Low 02/05/2012 Medications Ascorbic Acid (VITAMIN C) 500 mg PO CpSR Take 3 Caps by mouth daily. Active Cholecalciferol, Vitamin D3, 1,000 unit PO Cap Take 1 Cap by mouth daily. Active UBIDECARENONE/ TAMIN E MIXED (COQ10 SG 100 PO) Take 1 Cap by mouth daily. Active atenolol (TENORMIN) 25 mg tablet Take 25 mg by mouth daily. Active spironolactone (ALDACTONE) 25 mg tablet Take 25 mg by mouth. Active cephALEXin (KEFLEX) 500 mg capsule Take 1 Cap by mouth 4 times daily. 28 Cap 0 10/17/2015 Active ciprofloxacin HCl (CIPRO) 500 mg tablet Take 1 Tab by mouth 2 times daily. 14 Tab 0 10/19/2015 Active metroNIDAZOLE (FLAGYL) 500 mg tablet Take 1 Tab by mouth 3 times daily. 30 Tab 0 10/19/2015 Active Family History Medical History Relation Name Comments Allergy-Severe Father Emphysema Father Allergy-Severe Mother Emphysema Mother Relation Name Status Comments Brother 1 Alive Brother 2 Alive Brother 3 Alive Brother 4 Alive Brother 5 Daughter Alive Father Mother Sister 1 Alive Sister 2 Alive Son 1 Alive Son 2 Alive Son 3 Alive Social History Tobacco Use Types Packs/Day Years Used Date Smoking Tobacco: Never Smokeless Tobacco: Never Alcohol Use Standard Drinks/Week Comments Yes 0 (1 standard drink = 0.6 oz pur e alcohol) very seldom every 1-2 years Comments No Sex and Gender Information Value Date Recorded Sex Assigned at Not on file Legal Sex Female 7:17 PM EST Gender Identity Not on file Sexual Orientation Not on file Last Filed Vital Signs Vital Sign Reading Time Taken Comments Blood Pressure 118/70 10/19/2015 10:13 AM EDT Pulse 56 10/19/2015 10:13 AM EDT Temperature 36.9 C (98.4 F) 10/19/2015 10:13 AM EDT Respiratory Rate 16 10/17/2015 12:07 PM EDT Oxygen Saturation 96% 10/19/2015 10:13 AM EDT Inhaled Oxygen Concentration - - Weight 113.4 kg (250 lb) 10/17/2015 12:07 PM EDT Height 167.6 cm (5' 6 ) 10/17/2015 12:07 PM EDT Body Mass Index 40.35 10/17/2015 12:07 PM EDT Plan of Treatment Health Maintenance Due Date Last Done Comments Tetanus Vaccination (Every 10 Years) 01/29/1964 Hepatitis C Virus (HCV) Screening 1967 Pneumococcal Vaccine: 50+ Years (1 of 1 - PCV) 996 Zoster-RZV(Shingrix) (1 of 2) 01/29/1996 Fall Risk Assessment 2011 Osteoporosis Screening 2011 Lipid Screening 02/04/2017 02/05/2012 RSV Vaccines (1 - 1-dose 75+ series) 2021 COVID-19 Vaccine ( - season) 2024 Advance Care Planning 06/09/2024 Depression Screening 06/09/2024 Influenza Vaccination (#1) 2025 Procedures Procedure Name Priority Date/Time Associated Diagnosis Comments LIPID PROFILE Routine 02/05/2012 11:30 AM EDT HTN (hypertension) Edema Arthritis Foot ulcer Peripheral neuropathy Osteomyelitis Hyperglycemia from Last 3 Months or Most Recently Relevant to Health Maintenance Results * (ABNORMAL) LIPID PROFILE (02/05/2012 11:30 AM EDT) Cholesterol 228(H) 0 - 199 mg/dL [facility] Comment: TOTAL CHOLESTEROL INTERPRETATION: Less than 200 mg/dL Desireable 200-239 mg/dL Borderline Greater or Equal to 240 mg/dL High LDL Calculated 158(H) 0 - 100 mg/dL [facility] Comment: LDL CHOLESTEROL INTERPRETATION: Less than 100 mg/dL Optimal 100-129 mg/dL Near optimal/above optimal 130-159 mg/dL Borderline High 160-189 mg/dL High Greater or Equal to 190 mg/dL Very High HDL 43 40 - 180 mg/dL [facility] Comment: HDL CHOLESTEROL INTERPRETATION: Less than 40 mg/dL Low Greater than 60 mg/dL Desirable Triglycerides 136 0 - 150 mg/dL [facility] Comment: TOTAL TRIGLYCERIDE INTERPRETATION: Less than 150 mg/dL Normal 150-199 mg/dL Borderline HIgh 200-499 mg/dL High Greater or Equal to 500 mg/dL Very High Plasma (Plasma) 02/05/2012 1 1:30 AM EDT 02/05/2012 1:59 PM EDT Narrative [facility] - 02/05/2012 2:56 PM EDT Has the patient fasted?->Yes us Jude Segundo MD CHEMISTRY ORDERABLES Final Res ult [facility] [address] from Last 3 Months or Most Recently Relevant to Health Maintenance Insurance MEDICARE MEDICARE Care Teams Fast Food Crew Member Relationship Specialty Start Date End Date None, None [address] [place] [address] PCP - General 04/23/19
--- OUTSIDE RECORDS SUMMARY | 2025-01-21 09:04 | XMS_ITS | Encounter Summary ---
Author Organization [facility] Address [address] [place] [address] Care Team Providers Care Manager Payment Name Role Phone Ernesto Hernandez MD Primary Care Provider Encounter Details Date Type Department Care Team (Latest Contact Info) Description 12/28/2024 Travel Social History Tobacco Use Types Packs/Day Years [...] on file documented as of this encounter Plan of Treatment Upcoming Encounters Date Type Department Care Team (Late st Contact Info) Description 03/03/2025 2:15 PM EDT Office Visit [facility] ENDOCR[facility] [address] [phone] Mamadou Singletary PA-C [address] [facility] [address] [place] [address] documented as of this encounter Visit Diagnoses Not on filedocumented in this encounter Care Teams Manager Payment Relationship Specialty Start Date End Date Ernesto Hernandez MD [facility] [place] [address] [address] PCP - General Internal Medicine 12/28/24 01/17/25 documented as of this encounter
--- OUTSIDE RECORDS SUMMARY | 2025-01-21 09:04 | XMS_ITS | Clinical Summary ---
Author Organization [facility] Address [address] [place] [address] Care Team Providers Care Hims Manager Name Role Phone Pcp, No Primary Care Provider Unavailabl e Social History Tobacco Use Types Packs/Day Years Used Date Smoking Tobacco: Never Assessed Comments Unknown Sex and Gender Information Value Date Recorded Sex Assigned at Not on file Legal Sex Female 4:44 PM EDT Gender Identity Not on file Sexual Orientation Not on file Plan of Treatment Health Maintenance Due Date Last Done Comments [facility]-Bone Density Scan 1945 [facility]-Depression Screening 1945 [facility]-Hepatitis C Screening 1945 [facility]-Medicare Annual Wellness (AWV) 1945 [facility]-Infant/Child/Adol SDOH Screenings 1945 [facility]- SDOH Screenings 01/29/1964 [facility]-Adult SDOH Screenings 01/29/1964 [facility]-DTaP,Tdap,and Td Vaccine s (1 - Tdap) 1965 [facility]-Pneumococcal Vaccine: 50 + Years (1 of 1 - PCV) 01/29/1996 [facility]-Zoster Vaccines (1 of 2) 01/29/1996 [facility]-RSV Vaccine: 60+ Years o r (1 - 1-dose 75+ series) 2021 [id number] Vaccine (1 - 20 24-25 season) 2024 [facility]-Influenza Vaccine (#1) 2025 HPV Vaccines Aged Out No longer eligi ble based on patient's age to complete this topic [facility]-HIB Vaccines Aged Out No longer e ligible based on patient's age to complete this topic [facility]-Hepatitis A Vaccines Aged Out No longer eligible based on patient's age to complete this topic [facility]-IPV Vaccines Aged Out No longer e ligible based on patient's age to complete this topic [facility]-Rotavirus Vaccines Aged Out No lo nger eligible based on patient's age to complete this topic Insurance [employer] MEDICARE Care Teams Hims Manager Relationship Specialty Start Date End Date Pcp, [place] [address] PCP - General Family Medicine 04/17/23
--- OUTSIDE RECORDS SUMMARY | 2025-01-21 09:04 | XMS_ITS | Clinical Summary ---
Author Organization [facility] Address [address] [place] [id number] Care Team Providers Care Bindery Chief Name Role Phone Mamadou Singletary PA-C Primary Care Provider [phone] Allergies Active Allergy Reactions Criticality Noted Date Comments Morphine Delirium 12/28/2024 Statins Other (See Comments) 12/28/2024 Muscle aches Sulfa Antibiotics Rash Low 12/28/2024 Medications ascorbic acid (VITAMIN C) 500 MG capsule controlled-rele ase CR capsule Take 3 capsules by mouth Daily. Active vitamin D3 (vitamin d) 125 MCG (5000 UT) capsule capsule Take 1 capsule by mouth Daily. Active Ketotifen Fumarate (ZADITOR) 0.035 % solution Administer 1 drop to both eyes 2 (Two) Times a Day. Active Magnesium Oxide -Mg Supplement 400 (240 Mg) MG tablet Take 1 tablet by mouth Daily. Active TURMERIC PO Take 1 tablet by mouth Daily. Active Unable to find Take 1 each by mouth Daily. Med Name: MIRIAM Active vitamin B-12 (CYANOCOBALAMIN ) 500 MCG tablet Take 1 tablet by mouth Daily. Active Barberry-Oreg Grape-Goldensea l (BERBERINE COMPLEX PO) Take by mouth Daily. Active propylthiouraci l (PTU) 50 MG tabletIndicatio ns:Hyperthyroid ism Take 1 tablet by mouth 3 (Three) Times a Day. 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 Advised patient other options are radioactive iodine therapy and thyroidectomy if she is intolerant to PTU as well Patient already has paroxysmal atrial fibrillation, which can be triggered by hyperthyroidism Started on PTU 50 mg 3 times daily, warned about rash, leukopenia, and elevated liver enzymes If patient has any abdominal pain or rash, she is to stop the medication immediately and call the office Recheck labs today including TSH, free T4, free T3, TSI Multinodular goiter 12/28/2024 Assessment & Plan (12/28/2024 4:16 PM EDT): Most like a hot nodule or hot nodules are because of patient's hyperthyroidism Advised patient if we cannot control thyroid function with medication, radioactive iodine treatment or surgery are the other options Patient has had a stable 4 cm thyroid nodule for almost 10 years now, 2 biopsies have both been negative Encounters Date Type Department Care Team Description 01/18/2025 1:00 PM EDT - 01/18/2025 11:59 PM EDT Hospital Encounter [facility] NUCLEAR MEDICINE [address] [place] [address] Multinodular goiter; Hyperthyroidism Discharge Disposition: Home or Self Care 01/18/2025 Travel 01/11/2025 Telephone [facility] ENDOCRINOLOGY [address] [facility] [address] [place] [phone] Mamadou Singletary PA-C 01/03/2025 Telephone [facility] [address] [facility] [address] [place] [address] Mamadou Singletary PA-C 12/29/2024 Results Follow-Up [facility] [address] [facility] [address] [place] [phone] Mamadou Singletary PA-C 12/28/2024 1:00 PM EDT Office Visit [facility] [address] [place] [address] Mamadou Singletary PA-C Hyperthyroidism (Primary Dx); Multinodular goiter 12/28/2024 Travel from Last 3 Months Social History Tobacco Use Types Packs/Day Years [...] Mass Index 32.6 12/28/2024 1:19 PM EDT Plan of Treatment Upcoming Encounters Date Type Department Care Team (Late st Contact Info) Description 03/03/2025 2:15 PM EDT Office Visit [facility] [address] [phone] Mamadou Singletary PA-C [address] [facility] [place] [address] Health Maintenance Due Date Last Done Comments DXA SCAN 1945 COVID-19 Vaccine (#1) 1951 DIABETIC FOOT EXAM 01/29/1956 URINE MICROALBUMIN-CREATININ E RATIO (uACR) 01/29/1956 Pneumococcal Vaccine 50+ (1 of 2 - PCV) 1965 TDAP/TD VACCINES (1 - Tdap) 1965 ZOSTER VACCINE (1 of 2) 1965 DIABETIC EYE EXAM 08/13/2019 08/12/2018, , 07/01/2017 RSV Vaccine - Adults (1 - 1- dose 75+ series) 2021 ANNUAL WELLNESS VISIT 12/27/2024 HEMOGLOBIN A1C 12/27/2024 HEPATITIS C SCREENING 12/27/2024 INFLUENZA VACCINE 03/09/2025 COLOGUARD Discontinued 04/15/2023, 07/22/2018 COLORECTAL CANCER SCREENING Discontinued COLON CANCER SCREENING 5 YEA R SIGMOIDOSCOPY Discontinued COLONOSCOPY Discontinued CT COLONOGRAPHY Discontinued FECAL OCCULT BLOOD TEST Discontinued FIT Testing (1 year) Discontinued Procedures Procedure Name Priority Date/Time Associated Diagnosis Comments THYROID STIMULATING IMMUNOGLOBULIN Routine 12/28/2024 1:52 PM EDT Hyperthyroidism T3, FREE Routine 12/28/2024 1:52 PM EDT Hyperthyroidism T4, FREE Routine 12/28/2024 1:52 PM EDT Hyperthyroidism TSH Routine 12/28/2024 1:52 PM EDT Hyperthyroidism SCANNED EKG 11/18/2024 SCANNED NUCLEAR MED 11/03/2024 from Last 3 Months Results * Thyroid Stimulating Immunoglobulin (12/28/2024 1:52 PM EDT) [facility] Thyroid Stimulating Immunoglobulin <0.10 0.00 - 0.55 IU/L 01/02/2025 4:09 PM EDT [facility] Blood Structure of left upper limb / Unknown Venipuncture / Unknown 12/28/2024 1:52 PM EDT 12/28/2024 1:53 PM EDT Narrative [facility] - 01/02/2025 4:09 PM EDT Performed at: [facility] [id number] Cyber Defense Forensics Analyst: Eder Mauricio MD, Phone: [phone] ShipServdianeot PA-C LAB BLOOD ORDERABLES Final Result [facility] [address] [place] [address], * T3, Free (12/28/2024 1:52 PM EDT) [facility] T3, Free 4.13 2.00 - 4.40 pg/mL 12/29/2024 12:47 AM EDT [facility] Blood Venipuncture / Unknown 12/28/2024 1:52 PM EDT 12/28/2024 1:53 PM EDT Avidity NanoMedic[employer]ot PA-C LAB BLOOD ORDERABLES Final Result [facility]
[address] [place] [address], * (ABNORMAL) TSH (12/28/2024 1:52 PM EDT) [facility] TSH 0.017(L) 0.270 - 4.200 uIU/mL 12/29/2024 12:47 AM EDT [facility] Blood Venipuncture / Unknown 12/28/2024 1:52 PM EDT 12/28/2024 1:53 PM EDT Mamadou Ednacot PA-C LAB BLOOD ORDERABLES Final Result Performing Organization Address City/[facility]/ZIP Co de Phone Number [facility]
[address] [place] [address], * T4, Free (12/28/2024 1:52 PM EDT) Free T4 1.32 0.92 - 1.68 ng/dL 12/29/2024 12:47 AM EDT [facility] Blood Venipuncture / Unknown 12/28/2024 1:52 PM EDT 12/28/2024 1:53 PM EDT Gerrya Ednacot PA-C LAB BLOOD ORDERABLES Final Result Performing Organization Address City/[facility] Co de Phone Number [facility]
[address] [place] [phone], * ECG Scan (11/18/2024) [facility] On[facility] ECG ORDERABLES Final Result * NUCLEAR MED SCANNED (11/03/2024) Anatomical Region Laterality Modality Nuclear Medicine [facility] Onbase IMG NM ORDERABLES Final Resul t from Last 3 Months Insurance MEDICARE A & [employer] Care Teams Bindery Chief Relationship Specialty Start Date End Date Mamadou Singletary PA-C [address] [address] PCP - General Physician Bale Coverer 01/18/25
--- OUTSIDE RECORDS SUMMARY | 2025-01-21 09:04 | XMS_ITS | Encounter Summary ---
[facility] Address [address] [place] [address] Care Team Providers Care Typing Bookkeeper Name Role Phone Mamadou Singletary PA-C Primary Care Provider [phone] Encounter Details Date Type Department Care Team (Late st Contact Info) Description 01/11/2025 Telephone [facility] [address] [facility] [address] [place] [address] Mamadou Singletary PA-C [address] [facility] [address] [place] [address] Social History Tobacco Use Types Packs/Day Years [...] encounter Miscellaneous Notes * Telephone Encounter - Rohini Dejesus - 01/11/2025 1:58 PM EDT Patient returned my call. She was very confused about scheduling with us and her referring provider. She was unaware this was scheduled for and is needing to get a ride so she has asked we reschedule for her. I explained we would call to reschedule and Lizy or myself will give the patient a call back with new appointment date and time. * Telephone Encounter - Cleo Szymanski - 01/11/2025 1:43 PM EDT PATIENT RETURNED OUR CALL. PHONE NUMBER IS [phone] * Telephone Encounter - Rohini Dejesus - 01/11/2025 1:40 PM EDT Returned patients call. Not sure what she is upset about, order was only placed a week ago and she is scheduled this for the order. No answer. Left her a voicemail with my direct call back #. * Telephone Encounter - Nell Carter RegSched Rep - 01/11/2025 10:52 AM EDT Pt is upset that her testing has not been nneka after weeks of wanting. Can she get a call back to nneka her, juan pablo documented in this encounter Plan of Treatment Upcoming Encounters Date Type Department Care Team (Late st Contact Info) Description 03/03/2025 2:15 PM EDT Office Visit [facility] ENDOCRINOLOGY [address] [phone] Mamadou Singletary PA-C [address] [address] documented as of this encounter Visit Diagnoses Not on filedocumented in this encounter Care Teams Typing Bookkeeper Relationship Specialty Start Date End Date Mamadou Singletary PA-C [address] [address] PCP - General Physician Retail Coverage Merchandiser Lead 01/18/25 documented as of this encounter
--- OUTSIDE RECORDS SUMMARY | 2025-01-21 09:04 | XMS_ITS | Encounter Summary ---
[facility] Address [address] [place] [address] Care Team Providers Care Mottle Lay Up Operator Name Role Phone Ernesto Hernandez MD Primary Care Provider [phone] Encounter Details Date Type Department Care Team (Late st Contact Info) Description 01/03/2025 Telephone [facility] [address] [facility] 100 [place] [address] Sonia Singletary PA-C [address] [facility] [address] [place] [address] Social History Tobacco Use Types Packs/Day Years [...] encounter Miscellaneous Notes * Telephone Encounter - Luis Deluna MD - 01/05/2025 7:36 AM EDT You can do it. I can show you how to enter it * Telephone Encounter - Luis Deluna MD - 01/04/2025 7:33 AM EDT Surgery would be more effective but she would have to be euthyroid on ptu before the surgery. If she cannot tolerate ptu, then that leaves just MARTIN as the best option. We would give 29.9 mci and thenfady would likely need a second treatment at 6 months * Telephone Encounter - Cleo Szymanski - 01/03/2025 2:55 PM EDT PATIENT IS CALLING ABOUT HER PROPYLTHIOURACIL MEDICATION. SHE HAD A SEVERE ALLERGIC REACTION TO THEMEDICATION. IT CAUSED STOMACH CRAMPS AND CLEANED HER RAVEN OUT AFTER THE FIRST DAY. SECOND DAY MADE HER HANDS ITCH AND BACK PAIN AND ON THE 3 DAY OF TAKING MEDICATION IT CAUSED HER WHO BODY TO BE INPAIN AND IT WAS SEVERE PAIN. SHE STOPPED TAKING IT AFTER THE 3RD DAY. TODAY IS THE FIRST DAY SHE FEELS NORMAL AND BETTER NOW. IT TOOK HER 3-4 DAYS TO GET TO FEELING NORMAL. SHE WOULD LIKE A CALL BACKTO DISCUSS THIS ISSUE AND TO SEE WHAT SONIA SUGGESTS. PHONE NUMBER IS [phone] documented in this encounter Plan of Treatment Upcoming Encounters Date Type Department Care Team (Late st Contact Info) Description 03/03/2025 2:15 PM EDT Office Visit [facility] ENDOCRINOLOG[facility] [address] [phone] Sonia Singletary PA-C [address] [facility] 50 [place] [address] documented as of this encounter Visit Diagnoses Diagnosis Hyperthyroidism Thyrotoxicosis without mention of goiter or other cause, without mention of thyrotoxic crisis or storm documented in this encounter Care Teams Mottle Lay Up Operator Relationship Specialty Start Date End Date Ernesto Hernandez MD [facility] [address] [address] PCP - General Internal Medicine 12/28/24 01/17/25 documented as of this encounter
--- OUTSIDE RECORDS SUMMARY | 2025-01-21 09:04 | XMS_ITS | Clinical Summary ---
Author Organization [facility] Address [address] [place] [address] Care Team Providers Care Cafeteria Cook Name Role Phone Carolynn Pelletier MD Primary Care Provider [phone] Source Comments This information has been disclosed to you from confidential records protectedfrom disclosure by state law. You shall make no further disclosure of thisinformation without the specific, written, and informed release of theindividual to whom it pertains, or as otherwise permitted by law. A generalauthorization for the release of medical or other information is not sufficientfor the purposes of therelease of HIV test results or diagnoses. [id number] Allergies Active Allergy Reactions Criticality Noted Date Comments Azithromycin 12/24/2023 Hydrochlorothiazide 12/24/2023 Lisinopril 12/24/2023 Morphine 12/24/2023 Rosuvastatin 12/24/2023 Sulfa (Sulfonamide Antibiotics) 12/07 Anything with sulfa in it the pt states she is allergic to Medications methIMAzole (TAPAZOLE) 5 MG tablet Take 1 tablet (5 mg total) by mouth 3 times a day. Active ezetimibe-simva statin (VYTORIN) 10-10 mg per tablet Take 1 tablet by mouth at bedtime. Active TURMERIC ORAL Take by mouth. Active ezetimibe (ZETIA) 10 mg tablet Take 1 tablet (10 mg total) by mouth daily. Active levoFLOXacin (LEVAQUIN) 500 MG tablet Take 1 tablet (500 mg total) by mouth daily. Active ascorbic acid, vitamin C, (VITAMIN C) 100 MG tablet Take 1 tablet (100 mg total) by mouth daily. Active cholecalciferol , vitamin D3, (VITAMIN D3) 25 mcg (1,000 unit) capsule Take 1 capsule (1,000 Units total) by mouth daily. 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 No 12/23 Assistance needed for: Not on file 4 Yearly Questionnaire Answer Date Record ed Do you need any assistance w ith obtaining housing, meals, medication, transportation or medical equipment? No 12/23 Assistance needed for: Not on file 4 Yearly Questionnaire Answer Date Record ed Do you need any assistance w ith obtaining housing, meals, medication, transportation or medical equipment? No 12/23 Assistance needed for: Not on file 4 Comments Unknown Sex and Gender Information Value Date Recorded Sex Assigned at Not on file Legal Sex Female 10:10 PM EST Gender Identity Not on file Sexual Orientation Not on file Last Filed Vital Signs Vital Sign Reading Time Taken Comments Blood Pressure 168/87 12/24/2023 2:29 PM EDT Pulse 61 12/24/2023 2:29 PM EDT Temperature - - Respiratory Rate - - Oxygen Saturation 96% 12/24/2023 2:29 PM EDT Inhaled Oxygen Concentration 96% 12/24/2023 2 :29 PM EDT Weight 96.6 kg (213 lb) 12/24/2023 2:29 PM EDT Height 165.1 cm (5' 5 ) 12/24/2023 2:29 PM EDT Body Mass Index 35.45 12/24/2023 2:29 PM EDT Plan of Treatment Health Maintenance Due Date Last Done Comments Alcohol Misuse Screening 01/29/1963 Thyroid Function/Free T4 (MyChart) 01/29/1964 Thyroid Function/T3 (MyChart) 01/29/1964 Thyroid Function/TSH (MyChart) 01/29/1964 Immunization: Pneumococcal (1 of 1 - PCV) 01/29/1996 Immunization: Zoster (1 of 2) 01/29/1996 Osteoporosis Screening (DXA Scan) 01/29/1996 Immunization: RSV (Adult) (1 - 1-dose 75+ series) 01/08 Immunization: COVID-19 ( - season) 2024 Depression Screening 12/23/2024 12/24/2023 Immunization: Influenza (MyChart) (#1) 2025 Immunization: DTaP/Tdap/Td (2 - Td or Tdap) 06/09/2027 06/09/2017 Insurance [employer] PPO MEDICARE Care Teams Cafeteria Cook Relationship Specialty Start Date End Date Carolynn Pelletier MD [address] [place] [address] [address] [place] [address] PCP - General Family Medicine 12/31/23
--- OUTSIDE RECORDS SUMMARY | 2025-01-21 09:04 | XMS_ITS | Encounter Summary ---
[facility] Address [address] [place] [address] Care Team Providers Care Railroad Car Letterer Name Role Phone Mamadou Singletary PA-C Primary Care Provider [phone] Encounter Details Date Type Department Care Team (Latest Contact Info) Description 01/18/2025 Travel Social History Tobacco Use Types Packs/Day [...] Description 03/03/2025 2:15 PM EDT Office Visit [facility] ENDOCRINOLOG[facility] [address] [phone] Mamadou Singletary PA-C [address] [address] documented as of this encounter Visit Diagnoses Not on filedocumented in this encounter Care Teams Railroad Car Letterer Relationship Specialty Start Date End Date Mamadou Singletary PA-C [address] [address] PCP - General Physician Shutdown Planner 01/18/25 documented as of this encounter
[2025-01-21 09:13] VITALS: BMI 34.6
[2025-01-21 09:31] VITALS: BP 162/87; PULSE 57; RESP 18; O2SAT 98
[2025-01-21 09:39] LABS: Chloride 103 mmol/L (98-107)
[2025-01-21 09:40] LABS: Potassium 4.4 mmoL/L (3.5-5.1); Sodium 139 mmol/L (136-145)
[2025-01-21 09:42] LABS: Blood Urea Nitrogen 17 mg/dl (7-17); Creatinine Clearance Estimated 69 mL/min (50-200); Creatinine,Serum 0.60 mg/dl (0.52-1.04); Estimated Glomerular Filt Rate 97 ml/min (>60); GFR (African American) 117 ML/MIN (>60)
[2025-01-21 09:43] LABS: Anion Gap 12.4 mEq/L (5-15); Calcium 10.2 mg/dl (8.4-10.2); Carbon Dioxide 28 mmol/L (22.0-30.0); Glucose 126 mg/dl (74-100)
[2025-01-21 10:09] VITALS: BP 167/91; PULSE 68; RESP 18; O2SAT 96
[2025-01-21] MEDS: NITROGLYCERIN 0.4MG SL TABLET SL (10:09)
[2025-01-21 10:12] VITALS: BP 155/93; PULSE 50; RESP 16; O2SAT 99
[2025-01-21] MEDS: SODIUM CHLORIDE 0.9% 10ML SYR (RAD ONLY) 10 ML IV (10:20)
[2025-01-21] MEDS: IOPAMIDOL-370 (76%);100ML BOTTLE 85 ML IV (10:20)
[2025-01-21] MEDS: 0.9 % SODIUM CHLORIDE 50 ML VIAL IV (10:20)
== END 2025-01-21 10:32 | disposition home or self-care (01) ==
PROVIDERS: PCP Family Medicine; Visit Provider Nurse Practitioner Family
DX: I25.119 Atherosclerotic heart disease of native coronary artery with unspecified angina pectoris (principal); I10 Essential (primary) hypertension; R93.1 Abnormal findings on diagnostic imaging of heart and coronary circulation; R94.31 Abnormal electrocardiogram [ECG] [EKG]; R42 Dizziness and giddiness
CPT/HCPCS: 75574; 80048; Q9967

== ENCOUNTER 2025-02-03 09:13 | Day surgery (SDC) | payer MEDICARE, OTHER, SELFPAY ==
[2025-02-03] VITALS (12 sets, daily range): BP systolic 96–167; BP diastolic 60–84; PULSE 46–62; RESP 14–19; TEMP 36.6–36.9; O2SAT 91–99; BMI 34.9
--- NOTE | 2025-02-03 07:00 | IR_ITS ---
APPROVED REPORT Patient Location: [facility] Experience Coordinator: LONNIE Saldana RT (R) PROCEDURES Left heart catheterization Left ventriculogram Selective coronary angiogram Drug-eluting stent deployment to the mid dominant right coronary Drug-eluting stent deployment to the proximal and mid LAD INDICATION Coronary artery disease, Angina pectoris, Abnormal CCTA Informed consent was obtained prior to the procedure. COMPLICATIONS NONE Estimated Blood Loss: LESS THAN 10 ML TECHNIQUE One percent lidocaine used to anesthetize the right anterior aspect of the wrist. The right radial artery was accessed via the Seldinger technique. A 6 Kiswahili sheath was placed in the right radial artery. 2.5 mg of Verapamil, 800 mcg of nitroglycerin, 1mg Lidocaine and 5000 U Heparin were given through the arterial sheath. The JL3 catheter was also used to perform left heart catheterization, left ventriculogram and selective coronary angiogram. At the end the diagnostic angiogram therapeutic heparin was administered giving a therapeutic ACT and the guide catheter was placed in the right coronary artery followed by Choice PT extra-support wire placed distally. A 5 mm x 26 mm Remington frontier stent was deployed at 20 leander reducing the severe stenosis to 0% KATHI-3 flow was present before and after the procedure. Following this the catheter was placed back into the left anterior descending artery and a wire placed distally. A 3.5 x 38 mm Godwin frontier stent was deployed at 18 leander reducing the stenosis to 0%. An additional 4 mm x 12 mm Godwin frontier stent was placed proximal to the for stent yet still overlapping and deployed at 24 leander reducing the stenosis to 0%. KATHI-3 flow was present before and after the procedure. At the end the procedure the apparatus was removed the sheath was removed and hemostasis was achieved using TR banding patient was transferred to the postoperative care in stable condition ANGIOGRAPHIC RESULTS The left anterior descending artery Originates from the left coronary cusp and has proximal 50% stenosis followed by tandem 70% proximal and mid vessel stenoses The circumflex artery Originates from the left coronary cusp has proximal 10% stenosis with mid vessel 40% stenosis. The distal vessel is highly tortuous The right coronary artery Massively large dominant with mid vessel concentric 70% stenosis and distal 40% stenosis The SAMPSON ventriculogram reveals Hyperdynamic at 75% The left ventricular end-diastolic pressure Elevated at 25 mmHg IMPRESSION Severe two-vessel coronary disease as described above Successful stenting of the mid dominant right coronary severe disease reduced to 0% with 1 drug-eluting stent Successful stenting of the proximal to mid LAD severe disease reduced to 0% with 2 contiguous drug-eluting stents Hyperdynamic ventricle with elevated LVEDP PLAN 1. Plavix and aspirin 2. LDL less than 55 achieved with high intensity statin 3. Avoidance of tobacco products 4. Cardiac rehabilitation 5. Risk factor modification Electronically signed by : Blaise Vázquez MD 02/03/2025 11:19:00
[2025-02-03 09:44] LABS: Hematocrit 43.0 % (37.0-47.0); Hemoglobin 14.3 g/dL (12.2-16.2); Immature Granulocytes % 0.3 %; Mean Corpuscular HGB Conc 33.3 g/dL (31.8-35.4); Mean Corpuscular Hemoglobin 29.5 pg (27.0-31.2); Mean Corpuscular Volume 88.8 fl (81-99); Nucleated Red Blood Cells % 0 %; Platelet Count 216 K/mm3 (142-424); Red Blood Count 4.84 M/mm3 (4.20-5.40); Red Cell Distribution Width-SD 43.2 fL; White Blood Count 6.0 K/mm3 (4.8-10.8)
[2025-02-03 09:51] LABS: Chloride 106 mmol/L (98-107); Potassium 4.3 mmoL/L (3.5-5.1); Sodium 137 mmol/L (136-145)
[2025-02-03 09:54] LABS: Anion Gap 9.3 mEq/L (5-15); Blood Urea Nitrogen 23 mg/dl (7-17); Calcium 10.1 mg/dl (8.4-10.2); Carbon Dioxide 26 mmol/L (22.0-30.0); Creatinine Clearance Estimated 68 mL/min (50-200); Creatinine,Serum 0.60 mg/dl (0.52-1.04); Estimated Glomerular Filt Rate 96 ml/min (>60); GFR (African American) 117 ML/MIN (>60); Glucose 129 mg/dl (74-100)
[2025-02-03] MEDS: MIDAZOLAM HCL 1MG/ML 5ML VIAL 1 MG IV (10:37)
[2025-02-03] MEDS: NITROGLYCERIN 800MCG/8ML SYR (CATH LAB) 800 MCG IA (10:37)
[2025-02-03] MEDS: HEPARIN 1,000 UNITS/500ML NS (CATH LAB) 3000 UNIT IV (10:37)
[2025-02-03] MEDS: LIDOCAINE 1% 10ML MDV 10 ML IJ (10:37)
[2025-02-03] MEDS: FENTANYL 100MCG/2ML VIAL 50 MCG IV (10:37)
[2025-02-03] MEDS: VERAPAMIL 2.5MG/ML 2ML VIAL 2.5 MG IV (10:42)
[2025-02-03] MEDS: 0.9 % SODIUM CHLORIDE 500 ML 25 ML IV (10:43)
[2025-02-03] MEDS: HEPARIN 1,000 UNITS/ML 10ML VIAL (CATH LAB) 5000 UNIT IV (10:43)
[2025-02-03] MEDS: IOPAMIDOL-370 (76%);100ML BOTTLE 100 ML IV (12:16)
--- NOTE | 2025-02-03 12:18 | SUR.PHASEII ---
Grand-Daughter @ bedside. No needs voiced. Call radha w/in reach
[2025-02-03 12:21] LABS: CATHL Activated Clotting Time > 400 SEC (74-125)
== END 2025-02-03 14:57 | disposition home or self-care (01) ==
LOC: CATHLAB 09:15
PROVIDERS: PCP Family Medicine; Visit Provider Internal Medicine
PROC: 4A023N7 Measurement of Cardiac Sampling and Pressure, Left Heart, Percutaneous Approach (ICD-10-PCS; CPT 93452; principal; 2025-02-03 09:00)
DX: I25.119 Atherosclerotic heart disease of native coronary artery with unspecified angina pectoris (principal); R93.1 Abnormal findings on diagnostic imaging of heart and coronary circulation; E11.9 Type 2 diabetes mellitus without complications; I10 Essential (primary) hypertension; R06.09 Other forms of dyspnea; R00.1 Bradycardia, unspecified; E78.49 Other hyperlipidemia; R94.31 Abnormal electrocardiogram [ECG] [EKG]; R42 Dizziness and giddiness; E66.811 Obesity, class 1; Z68.34 Body mass index [BMI] 34.0-34.9, adult; Z85.821 Personal history of Merkel cell carcinoma; Z95.5 Presence of coronary angioplasty implant and graft; Z79.82 Long term (current) use of aspirin; Z79.01 Long term (current) use of anticoagulants; Z79.02 Long term (current) use of antithrombotics/antiplatelets; Z79.899 Other long term (current) drug therapy; Z88.2 Allergy status to sulfonamides; Z88.8 Allergy status to other drugs, medicaments and biological substances; Z88.1 Allergy status to other antibiotic agents; Z91.040 Latex allergy status; Z82.49 Family history of ischemic heart disease and other diseases of the circulatory system
CPT/HCPCS: 80048; 85025; 85347; 92928; 93458; 99152; 99153; C1725; C1769; C1874; C9600; J1200; J1644; J2003; J3010; J7040; Q9967

== ENCOUNTER 2025-02-08 11:16 | Outpatient (CLI) | payer MEDICARE, OTHER, SELFPAY ==
--- OUTSIDE RECORDS SUMMARY | 2024-12-28 13:00 | XMS_ITS | Encounter Summary ---
Author Organization [facility] Address [address] [place] [address] Care Team Providers Care Branch Services Manager Name Role Phone Ernesto Hernandez MD Primary Care Provider [phone] Reason for Visit * Reason Comments LOW TSH Encounter Details Date Type Department Care Team (Late st Contact Info) Description 12/28/2024 1:00 PM EDT Office Visit [facility] [address] [address] Mamadou Singletary PA-C [address]; [place] ([place] [address] Hyperthyroidism (Primary Dx); Multinodular goiter Social History [...] in this encounter Progress Notes * Mamadou Singleatry PA-C - 12/28/2024 4:16 PM EDTAssociated Problem(s): [...] available for review, despite reviewing records from [facility] and [facility] Most likely, well-controlled on methimazole, but [...] was 10.5 Subjective Patient was born where: [place]. 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 T3 No results found for: [id number] TPO No results found for: THYROIDAB TG [...] the need for FNA. Dev. Enrico MARCELO floorperson, Division of Endocrinology, Thyroid and parathyroid tumor program, [facility], [facility]. HCI office: Tel [phone] and Fax - [phone] [facility] office: Tel: [phone] and Fax [phone] Errors: Courtesy of Roxanne Dictation. Exam End: 09/04/16 13:26 Last Resulted: 09/04/16 18:04 Received From: [facility] NECK ULTRASOUND Pre-op Diagnosis: toxic multi-nodular goiter [...] available for review, despite reviewing records from [facility] and [facility] Most likely, well-controlled on methimazole, but [...] Description 03/03/2025 2:15 PM EDT Office Visit [facility] [address] [address] Mamadou Singletary PA-C [address] [address] documented as of this encounter Procedures Procedure [...] - 0.55 IU/L 01/02/2025 4:09 PM EDT [facility] Blood Structure of left upper limb / Unknown Venipuncture / Unknown 12/28/2024 1:52 PM EDT 12/28/2024 1:53 PM EDT Narrative [facility] - 01/02/2025 4:09 PM EDT Performed at: [facility] [id number] Tanning Wheel Operator: Eder Mauricio MD, Phone: [phone] Mamadou [place] Medicallayssa KHAN-C LAB BLOOD ORDERABLES Final Result Performing Organization Address [facility]/ZIP Co de Phone Number [facility] [address] [place] [address], * T3, Free (12/28/2024 1:52 PM EDT) Pathologist [facility] T3, Free 4.13 2.00 - 4.40 pg/mL 12/29/2024 12:47 AM EDT [facility] Blood Venipuncture / Unknown 12/28/2024 1:52 PM EDT 12/28/2024 1:53 PM EDT FlipterbrendaJournallyMe PA-C LAB BLOOD ORDERABLES Final Result [facility]
[address] [place] [address], * T4, Free (12/28/2024 1:52 PM EDT) Free T4 1.32 0.92 - 1.68 ng/dL 12/29/2024 12:47 AM EDT [facility] Blood Venipuncture / Unknown 12/28/2024 1:52 PM EDT 12/28/2024 1:53 PM EDT Cortexa PA-C LAB BLOOD ORDERABLES Final Result [facility]
[address] [place] [address], * (ABNORMAL) TSH (12/28/2024 1:52 PM EDT) Pathologist [facility] TSH 0.017(L) 0.270 - 4.200 uIU/mL 12/29/2024 12:47 AM EDT [facility] Blood Venipuncture / Unknown 12/28/2024 1:52 PM EDT 12/28/2024 1:53 PM EDT Flipterashe memorial hospitalInfoNownacot PA-C LAB BLOOD ORDERABLES Final Result [facility]
[address] [place] [address], documented in this encounter Visit Diagnoses Diagnosis Hyperthyroidism- Primary Thyrotoxicosis without mention of goiter or other cause, without mention of thyrotoxic crisis or storm Multinodular goiter Nontoxic multinodular goiter documented in this encounter Care Teams Branch Services Manager Relationship Specialty Start Date End Date Ernesto Hernandez MD [address] [place] [facility] [address] [place] [address] PCP - General Internal Medicine 12/28/24 01/17/25 documented as of this encounter
--- OUTSIDE RECORDS SUMMARY | 2025-01-18 13:00 | XMS_ITS | Encounter Summary ---
Author Organization [facility] Address [address] [place] [address] Care Team Providers Care Burial Needs Salesperson Name Role Phone Mamadou Singletary PA-C Primary Care Provider [phone] Reason for Visit * MRI/CAT/PET Scan (Routine) - Closed Specialty Diagnoses / Procedures Referred By Contac t Referred To Contact Radiology Diagnoses Multinodular goiter Hyperthyroidism Procedures NM Therapy Hyperthyroid Initial NM Thyroid Therapy Ablation Basic Mamadou Singletary PA-C [address] [employer] [address] [address] Phone: tel: fax: [facility] [address] [place] [phone] Phone: tel: Referral ID Status Reason Start Date Expiration Date Visits Re quested Visits Authorized [id number] Closed 01/05/2025 04/06/2026 1 1 Encounter Details Date Type Department Care Team (Latest Contact Info) Description 01/18/2025 1:00 PM EDT - 01/18/2025 11:59 PM EDT Hospital Encounter [facility] [address] [place] [phone] Mamadou Singletary PA-C [address] [place] [address] Multinodular goiter; Hyperthyroidism Discharge Disposition: Home or [...] Description 03/03/2025 2:15 PM EDT Office Visit [facility] [address] [phone] Mamadou Singletary PA-C [address] [address] documented as of this encounter [...] MD 01/30/2025 8:39 AM EDT Workstation ID: [id number] Narrative 01/30/2025 8:39 AM EDT DATE OF [...] the patient both by me and the cytotechnologist/histotechnologist. She was furnished with a written list [...] the patient both by me and the cytotechnologist/histotechnologist. She was furnished with a writtenlist of posttreatment contact precautions for her reference. She indicatedher understanding and agrees to treatment. Accordingly, the dose of 30.8mCi of iodine-131 was administered the patient without complication. IMPRESSION: Right I-131 thyroid therapy without complication. Electronically Signed: Thomas Gonzalez MD 01/30/2025 8:39 AM EDT Workstation ID: [id number] Mamadou Singletary PA-C [facility] [place] ORDERABLES Final Res ult documented in [...] millicuries documented in this encounter Care Teams Burial Needs Salesperson Relationship Specialty Start Date End Date Mamadou Singletary PA-C [address] [place] [phone] PCP - General Physician Glass Mechanic 01/18/25 documented as of this encounter
--- OUTSIDE RECORDS SUMMARY | 2025-01-21 10:55 | XMS_ITS | Encounter Summary ---
Author Organization Healthcare Address [address] [id number] Care Team Providers Care Correctional Probation Officer Name Role Phone Pcp, No Primary Care Provider Unavailabl e Encounter Details Date Type Department Care Team (Late st Contact Info) Description 01/21/2025 10:55 AM EDT Ancillary Procedure [phone] [phone] Chest pain Social History Tobacco Use Types [...] Data Image Acquisition: Images were acquired at [facility] in [place], and interpreted at [facility]. A 128-slice MDCT scanner ([employer]) was used for data acquisition. A non-contrast [...] was reviewed interactively on an advanced workstation (Aramsco) capable of 2 and 3 dimensional displays [...] Data Image Acquisition: Images were acquired at [facility] in [place], andinterpreted at [facility]. A 128-slice MDCT scanner (SmartAngels.fr) was used for data acquisition. A non-contrast [...] Data wasreviewed interactively on an advanced workstation (Aramsco) capable of 2and 3 dimensional displays in [...] on 01/21/2025 2:38 PM us Arielle Lee MEDICAID BILLING SPECIALIST IMG CT PROCEDURES Final Resu lt documented in this encounter Visit Diagnoses Diagnosis Chest pain Unspecified chest pain documented in this encounter Care Teams Correctional Probation Officer Relationship Specialty Start Date End Date Pcp, Natalia [address] [place] [address] PCP - General Family Medicine 04/17/23 documented as of this encounter
--- OUTSIDE RECORDS SUMMARY | 2025-02-08 11:46 | XMS_ITS | Encounter Summary ---
Author Organization [facility] Address [address] [place] [address] Care Team Providers Care Presser Automatic Name Role Phone Ernesto Hernandez MD Primary Care Provider [phone] Encounter Details Date Type Department Care Team [...] Description 03/03/2025 2:15 PM EDT Office Visit [facility] [address] [phone] Mamadou Singletary PA-C [address] [facility] [address] [place] [address] documented as of this encounter Visit Diagnoses Not on filedocumented in this encounter Care Teams Presser Automatic Relationship Specialty Start Date End Date Ernesto Hernandez MD [address] [facility] [address] [place] [address] PCP - General Internal Medicine 12/28/24 01/17/25 documented as of this encounter
--- OUTSIDE RECORDS SUMMARY | 2025-02-08 11:46 | XMS_ITS | Encounter Summary ---
[facility] Organization [facility] Address [address] [place] [address] Care Team Providers Care Member Of Congress Name Role Phone Mamadou Singletary PA-C Primary Care Provider Encounter Details Date Type Department Care Team (Late st Contact Info) Description 12/29/2024 Results Follow-Up [facility] [address] [address] Mamadou Singletary PA-C [address] [place] [address] Social History Tobacco Use Types Packs/Day Years [...] EDT Office Visit [facility] [address] [address] Mamadou Singletary PA-C [address] [address] documented as of this encounter Visit Diagnoses Not on filedocumented in this encounter Care Teams Member Of Congress Relationship Specialty Start Date End Date Mamadou Singletary PA-C [address] [place] [address] PCP - General Physician Mail Sorter And Delivery 01/18/25 documented as of this encounter
--- OUTSIDE RECORDS SUMMARY | 2025-02-08 11:46 | XMS_ITS | Encounter Summary ---
[facility] Address [address] [place] [address] Care Team Providers Care Enrober Name Role Phone Mamadou Singletary PA-C Primary Care Provider Encounter Details Date Type Department Care Team (Late st Contact Info) Description 01/11/2025 Telephone [facility] [address] [facility] [address] [place] [address] Mamadou Singletary PA-C [address] [facility] [address] [place] [address] Social History Tobacco Use Types Packs/Day Years [...] PATIENT RETURNED OUR CALL. PHONE NUMBER IS [phone] * Telephone Encounter - Rohini Dejesus - [...] Can she get a call back to [facility] her, juan pablo documented in this encounter Plan of Treatment Upcoming Encounters Date Type Department Care Team (Late st Contact Info) Description 03/03/2025 2:15 PM EDT Office Visit [facility] [address] [phone] Mamadou Singletary PA-C [address] [address] documented as of this encounter Visit Diagnoses Not on filedocumented in this encounter Care Teams Enrober Relationship Specialty Start Date End Date Mamadou Singletary PA-C [address] [address] PCP - General Physician Bowling Pin Setters Installer 01/18/25 documented as of this encounter
--- OUTSIDE RECORDS SUMMARY | 2025-02-08 11:46 | XMS_ITS | Encounter Summary ---
Author Organization [facility] Address [address] [place] [address] Care Team Providers Care Communications Scientist Name Role Phone Ernesto Hernandez MD Primary Care Provider [phone] Encounter Details Date Type Department Care Team (Late st Contact Info) Description 01/03/2025 Telephone [facility] [address] [facility] [address] [place] [address] Sonia Singletary PA-C 1773 [facility] [address] [place] [address] Social History Tobacco Use Types Packs/Day Years [...] option. We would give 29.9 mci and thenceceliae would likely need a second treatment at [...] SEE WHAT SONIA SUGGESTS. PHONE NUMBER IS [phone] documented in this encounter Plan of Treatment Upcoming Encounters Date Type Department Care Team (Late st Contact Info) Description 03/03/2025 2:15 PM EDT Office Visit [facility] ENDOCRINOLOGY [address] [address] Sonia Singletary PA-C [address] [address] documented as of this encounter Visit Diagnoses Diagnosis Hyperthyroidism Thyrotoxicosis without mention of goiter or other cause, without mention of thyrotoxic crisis or storm documented in this encounter Care Teams Communications Scientist Relationship Specialty Start Date End Date Ernesto Hernandez MD 1210 [facility] [address] [address] PCP - General Internal Medicine 12/28/24 01/17/25 documented as of this encounter
--- OUTSIDE RECORDS SUMMARY | 2025-02-08 11:46 | XMS_ITS | Clinical Summary ---
Author Organization Healthcare Address [address] [place] [address] Care Team Providers Care Flash Ranging Crewmember Name Role Phone Pcp, No Primary Care Provider Unavailabl e Encounters Date Type Department Care Team Description 01/21/2025 10:55 AM EDT Ancillary Procedure [address] [facility] [address] [place] [phone] Chest pain from Last 3 Months Social History Tobacco [...] r (1 - 1-dose 75+ series) 2021 [id number] Vaccine (1 - 20 24-25 season) 2024 [...] on patient's age to complete this topic Procedures Procedure Name Priority Date/Time Associated Diagnosis Comments CT ANGIO CARDIAC CORONARY ARTERIES Routine 01/21/2025 10:52 AM EDT Chest pain from Last 3 Months Results * CT Angio Cardiac Coronary Arteries [...] acquired at [facility] in [place], and interpreted at [facility]. A 128-slice MDCT scanner (Adpepsa View) was used for data acquisition. A non-contrast [...] was reviewed interactively on an advanced workstation ([employer] Software) capable of 2 and 3 dimensional displays [...] acquired at [facility] in [place], andinterpreted at [facility]. A 128-slice MDCT scanner (Jingshi Wanwei) was used for data acquisition. A non-contrast [...] Data wasreviewed interactively on an advanced workstation ([employer] Software) capable of 2and 3 dimensional displays in [...] Demian Espitia MD on 01/21/2025 2:38 PM Arielle Lee [employer] FLOOR INSTALLER IMG CT PROCEDURES Final Resu lt from Last 3 Months Insurance MEDICARE [employer] Care Teams Flash Ranging Crewmember Relationship Specialty Start Date End Date Pcp, Natalia [address] [place] [address] PCP - General Family Medicine 04/17/23
--- OUTSIDE RECORDS SUMMARY | 2025-02-08 11:46 | XMS_ITS | Clinical Summary ---
Author Organization [facility] Address [address] [place] [address] Care Team Providers Care Grant Officer Name Role Phone None, None Primary Care [...] Vaccines (1 - 1-dose 75+ series) 2021 Advance Care Planning 06/09/2024 Depression Screening 06/09/2024 COVID-19 Vaccine (1 - 2023- season) 2025 Influenza Vaccination (#1) 2025 Procedures Procedure Name Priority Date/Time Associated Diagnosis Comments LIPID PROFILE Routine 02/05/2012 11:30 AM EDT HTN (hypertension) Edema Arthritis Foot ulcer Peripheral neuropathy Osteomyelitis Hyperglycemia from Last 3 Months or Most Recently Relevant to Health Maintenance Results * (ABNORMAL) LIPID PROFILE (02/05/2012 11:30 AM EDT) Cholesterol 228(H) 0 - 199 mg/dL [facility] Comment: TOTAL CHOLESTEROL INTERPRETATION: Less than 200 mg/dL Desireable 200-239 mg/dL Borderline Greater or Equal to 240 mg/dL High LDL Calculated 158(H) 0 - 100 mg/dL [facility] Comment: LDL CHOLESTEROL INTERPRETATION: Less than 100 mg/dL Optimal 100-129 mg/dL Near optimal/above optimal 130-159 mg/dL Borderline High 160-189 mg/dL High Greater or Equal to 190 mg/dL Very High HDL 43 40 - 180 mg/dL [facility] Comment: HDL CHOLESTEROL INTERPRETATION: Less than 40 mg/dL Low Greater than 60 mg/dL Desirable Triglycerides 136 0 - 150 mg/dL [facility] Comment: TOTAL TRIGLYCERIDE INTERPRETATION: Less than 150 mg/dL Normal 150-199 mg/dL Borderline HIgh 200-499 mg/dL High Greater or Equal to 500 mg/dL Very High Plasma (Plasma) 02/05/2012 1 1:30 AM EDT 02/05/2012 1:59 PM EDT Narrative [facility] - 02/05/2012 2:56 PM EDT Has the patient fasted?->Yes us Jude Segundo MD CHEMISTRY ORDERABLES Final Res ult [facility] [address] from Last 3 Months or Most Recently Relevant to Health Maintenance Insurance MEDICARE MEDICARE Care Teams Grant Officer Relationship Specialty Start Date End Date None, None [address] [place] [address] PCP - General 04/23/19
--- OUTSIDE RECORDS SUMMARY | 2025-02-08 11:46 | XMS_ITS | Encounter Summary ---
[facility] Address [address] [place] [address] Care Team Providers Care Broom Stitcher Name Role Phone Mamadou Singletary PA-C Primary Care Provider [phone] Encounter Details Date Type Department Care Team (Late st Contact Info) Description 01/31/2025 Results Follow-Up [facility] ENDOCR[facility]OLOG[facility] [address] Mamadou Singletary PA-C [address] [place] [address] Social History Tobacco Use Types Packs/Day [...] Telephone Encounter - Mamadou Singletary PA-C - 01/31/2025 8:16 AM EDT Please call patient and schedule her with me for follow up in 6 weeks. We will get labs at that visit documented in this encounter Plan of Treatment Upcoming Encounters Date Type Department Care Team (Late st Contact Info) Description 03/03/2025 2:15 PM EDT Office Visit [facility] [address] [facility] [address] [address] [place] [address] Mamadou Singletary PA-C 1774 [facility] [address] [place] [address] documented as of this encounter Visit Diagnoses Not on filedocumented in this encounter Care Teams Broom Stitcher Relationship Specialty Start Date End Date Mamadou Singletary PA-C 1772 [facility] [address] [place] [address] PCP - General Physician Reading Interventionist 01/18/25 documented as of this encounter
--- OUTSIDE RECORDS SUMMARY | 2025-02-08 11:46 | XMS_ITS | Clinical Summary ---
Author Organization [facility] Address [address] [place] [address] Care Team Providers Care Straightener Gun Parts Name Role Phone Carolynn Pelletier MD Primary Care Provider [phone] Source Comments This information has been disclosed [...] therelease of HIV test results or diagnoses. [id number] Allergies Active Allergy Reactions Criticality Noted Date [...] - Td or Tdap) 06/09/2027 06/09/2017 Insurance [employer] PPO MEDICARE Care Teams Straightener Gun Parts Relationship Specialty Start Date End Date Carolynn Pelletier MD [address] [place] [address] [address] [place] [address] PCP - General Family Medicine 12/31/23
--- OUTSIDE RECORDS SUMMARY | 2025-02-08 11:46 | XMS_ITS | Clinical Summary ---
Author Organization [facility] Address [address] [place] [address] Care Team Providers Care Car Dropper Name Role Phone Mamadou Singletary PA-C Primary Care Provider Allergies Active Allergy Reactions Criticality Noted Date [...] available for review, despite reviewing records from [facility] and [facility] Most likely, well-controlled [...] Encounters Date Type Department Care Team Description 01/31/2025 Results Follow-Up [facility] ENDOCRINOLOGY [address] [place] [address] Mamadou Singletary PA-C 01/18/2025 1:00 PM EDT - 01/18/2025 11:59 PM EDT Hospital Encounter [facility] [address] [place] [phone] Mamadou Singletary PA-C Multinodular goiter; Hyperthyroidism Discharge Disposition: Home or Self Care 01/18/2025 Travel 01/11/2025 Telephone [facility] [address] [facility] [address] [place] [address] Mamadou Singletary PA-C 01/03/2025 Telephone [facility] ENDOCR[facility] [address] [place] [address] Mamadou Singletary PA-C 12/29/2024 Results Follow-Up [facility] ENDOCR[facility] [address] [facility] [address] [place] [address] Mamadou Singletary PA-C 12/28/2024 1:00 PM EDT Office Visit [facility] [address] [facility] [address] [place] [address] Mamadou Singletary PA-C Hyperthyroidism (Primary [...] Description 03/03/2025 2:15 PM EDT Office Visit [facility] ENDOCR[facility]OLOG[facility] [address] [employer] [address] [phone] Mamadou Singletary PA-C [address] [employer] [address] [address] Health Maintenance Due Date Last Done Comments [...] CANCER SCREENING Discontinued COLON CANCER SCREENING 5 [place] R SIGMOIDOSCOPY Discontinued COLONOSCOPY Discontinued CT COLONOGRAPHY Discontinued FECAL OCCULT BLOOD TEST Discontinued FIT Testing (1 year) Discontinued Procedures Procedure Name Priority Date/Time Associated Diagnosis Comments NM THERAPY HYPERTHYROID INITIAL Routine 01/18/2025 2:33 PM EDT Multinodular goiter Hyperthyroidism THYROID STIMULATING IMMUNOGLOBULIN Routine 12/28/2024 1:52 PM EDT Hyperthyroidism T3, FREE Routine 12/28/2024 1:52 PM EDT Hyperthyroidism T4, FREE Routine 12/28/2024 1:52 PM EDT Hyperthyroidism TSH Routine 12/28/2024 1:52 PM EDT Hyperthyroidism SCANNED EKG 11/18/2024 from Last 3 Months Results * NM Therapy Hyperthyroid Initial (01/18/2025 2:33 PM EDT) Anatomical Region Laterality Modality Head and Neck Nuclear Medicine 01/30/2025 8:37 AM EDT Impressions 01/30/2025 8:39 AM EDT Right I-131 thyroid therapy without complication. Electronically Signed: Thomas Gonzalez MD 01/30/2025 8:39 AM EDT Workstation ID: [id number] Narrative 01/30/2025 8:39 AM EDT DATE OF [...] patient both by me and the nuclear waste management engineer. She was furnished with a written [...] patient both by me and the nuclear waste management engineer. She was furnished with a writtenlist of posttreatment contact precautions for her reference. She indicatedher understanding and agrees to treatment. Accordingly, the dose of 30.8mCi of iodine-131 was administered the patient without complication. IMPRESSION: Right I-131 thyroid therapy without complication. Electronically Signed: Thomas Gonzalez MD 01/30/2025 8:39 AM EDT Workstation ID: [id number] Mamadou Singletary PA-C IMG NM ORDERABLES Final Res ult * Thyroid Stimulating Immunoglobulin (12/28/2024 1:52 PM EDT) Thyroid Stimulating Immunoglobulin <0.10 0.00 - 0.55 IU/L 01/02/2025 4:09 PM EDT [facility] Blood Structure of left upper limb / Unknown Venipuncture / Unknown 12/28/2024 1:52 PM EDT 12/28/2024 1:53 PM EDT Narrative [facility] - 01/02/2025 4:09 PM EDT Performed at: [facility] [id number] Maritime Pilot: Eder Mauricio MD, Phone: [phone] Mamadou Singletary PA-C LAB BLOOD ORDERABLES Final Result [facility] [address] [place] [address], * T3, Free (12/28/2024 1:52 PM EDT) T3, Free 4.13 2.00 - 4.40 pg/mL 12/29/2024 12:47 AM EDT [facility] Blood Venipuncture / Unknown 12/28/2024 1:52 PM EDT 12/28/2024 1:53 PM EDT Katisha Ednacot PA-C LAB BLOOD ORDERABLES Final Result [facility]
[address] [place] [address], [place] [phone] * (ABNORMAL) TSH (12/28/2024 1:52 PM EDT) [facility] TSH 0.017(L) 0.270 - 4.200 uIU/mL 12/29/2024 12:47 AM EDT [facility] Blood Venipuncture / Unknown 12/28/2024 1:52 PM EDT 12/28/2024 1:53 PM EDT Gerrya Ednacot PA-C LAB BLOOD ORDERABLES Final Result Performing Organization Address City/[facility]/ZIP Co de Phone Number [facility]
[address] [place] [address], [place] [phone] * T4, Free (12/28/2024 1:52 PM EDT) Pathologist [facility] Free T4 1.32 0.92 - 1.68 ng/dL 12/29/2024 12:47 AM EDT [facility] Blood Venipuncture / Unknown 12/28/2024 1:52 PM EDT 12/28/2024 1:53 PM EDT Katisha Ednacot PA-C LAB BLOOD ORDERABLES Final Result Performing Organization Address City/[facility]/ZIP Co de Phone Number [facility]
[address] [place] [address], [place] [phone] * ECG Scan (11/18/2024) [facility] New Onbase ECG ORDERABLES Final Result from Last 3 Months Insurance MEDICARE A & B [employer] Care Teams Car Dropper Relationship Specialty Start Date End Date Mamadou Singletary PA-C [address] [address] PCP - General Physician Traffic Officer 01/18/25
--- OUTSIDE RECORDS SUMMARY | 2025-02-08 11:46 | XMS_ITS | Encounter Summary ---
Author Organization [facility] Address [address] [place] [address] Care Team Providers Care Medical Oncologist Name Role Phone Mamadou Singletary PA-C Primary Care Provider [phone] Encounter Details Date Type Department Care Team [...] Description 03/03/2025 2:15 PM EDT Office Visit [facility] ENDOCRINOLOGY [email or web address] [phone] Mamadou Singletary PA-C [address] [address] documented as of this encounter Visit Diagnoses Not on filedocumented in this encounter Care Teams Medical Oncologist Relationship Specialty Start Date End Date Mamadou Singletary PA-C [address] [facility] [address] [place] [address] PCP - General Physician Die Casting Machine Setter 01/18/25 documented as of this encounter
[2025-02-08 12:20] LABS: Hematocrit 41.7 % (37.0-47.0); Hemoglobin 13.4 g/dL (12.2-16.2); Immature Granulocytes % 0.3 %; Mean Corpuscular HGB Conc 32.1 g/dL (31.8-35.4); Mean Corpuscular Hemoglobin 28.8 pg (27.0-31.2); Mean Corpuscular Volume 89.7 fl (81-99); Nucleated Red Blood Cells % 0 %; Platelet Count 195 K/mm3 (142-424); Red Blood Count 4.65 M/mm3 (4.20-5.40); Red Cell Distribution Width-SD 43.5 fL; White Blood Count 5.8 K/mm3 (4.8-10.8)
[2025-02-08 12:42] LABS: Anion Gap 14.2 mEq/L (5-15); Blood Urea Nitrogen 20 mg/dl (7-17); Calcium 9.9 mg/dl (8.4-10.2); Carbon Dioxide 27 mmol/L (22.0-30.0); Chloride 103 mmol/L (98-107); Creatinine,Serum 0.70 mg/dl (0.52-1.04); Estimated Glomerular Filt Rate 81 ml/min (>60); GFR (African American) 98 ML/MIN (>60); Glucose 132 mg/dl (74-100); Potassium 5.2 mmoL/L (3.5-5.1); Sodium 139 mmol/L (136-145)
== END 2025-02-08 23:59 | disposition home or self-care (01) ==
LOC: LAB 11:17
PROVIDERS: PCP Family Medicine; Visit Provider Internal Medicine
DX: I25.10 Atherosclerotic heart disease of native coronary artery without angina pectoris (principal); Z95.5 Presence of coronary angioplasty implant and graft
CPT/HCPCS: 36415; 80048; 85025

== ENCOUNTER 2025-02-15 15:09 | Outpatient (CLI) | payer MEDICARE, OTHER, SELFPAY ==
--- OUTSIDE RECORDS SUMMARY | 2024-12-28 13:00 | XMS_ITS | Encounter Summary ---
Author Organization [facility] Address [address] [place] [address] Care Team Providers Care Skiver Machine Name Role Phone Ernesto Hernandez MD Primary Care Provider [phone] Reason for Visit * Reason Comments LOW TSH Encounter Details Date Type Department Care Team (Late st Contact Info) Description 12/28/2024 1:00 PM EDT Office Visit [facility] [address] [address] Mamadou Singletary PA-C [address] [place] [address] Hyperthyroidism (Primary Dx); Multinodular goiter Social History [...] available for review, despite reviewing records from [facility] and [facility] Most likely, well-controlled on methimazole, but patient [...] radiation exposure: Yes, describe: had radiation from 4343-2779, 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 T3 No results found for: [id number] TPO No results found for: THYROIDAB TG [...] the need for FNA. Dev. Enrico MARCELO assistant food service manager, Division of Endocrinology, Thyroid and parathyroid tumor program, [facility]a, [facility]. HCI office: Tel [phone] and Fax - [phone] [facility] office: Tel: [phone] and Fax [phone] Errors: Courtesy of Roxanne Dictation. Exam End: 09/04/16 13:26 Last Resulted: 09/04/16 18:04 Received From: [facility] NECK ULTRASOUND Pre-op Diagnosis: toxic multi-nodular goiter [...] available for review, despite reviewing records from [facility] and [facility] Most likely, well-controlled on methimazole, but patient [...] Description 03/03/2025 2:15 PM EDT Office Visit [facility] [address] [address] Mamadou Singletary PA-C [address] [address] documented as of this encounter Procedures Procedure [...] - 01/02/2025 4:09 PM EDT Performed at: [facility] [id number] Application Lead: Eder Mauricio MD, Phone: [phone] Mamadou CloudCheckralyssa KHAN-C LAB BLOOD ORDERABLES Final Result Performing Organization Address [facility]/ZIP Co de Phone Number [facility] [address] [place] [address], * T3, Free (12/28/2024 1:52 PM EDT) Pathologist [facility] T3, Free 4.13 2.00 - 4.40 pg/mL 12/29/2024 12:47 AM EDT [facility] Blood Venipuncture / Unknown 12/28/2024 1:52 PM EDT 12/28/2024 1:53 PM EDT OrggerbrendaBovControl PA-C LAB BLOOD ORDERABLES Final Result [facility]
[address] [place] [address], * T4, Free (12/28/2024 1:52 PM EDT) Free T4 1.32 0.92 - 1.68 ng/dL 12/29/2024 12:47 AM EDT [facility] Blood Venipuncture / Unknown 12/28/2024 1:52 PM EDT 12/28/2024 1:53 PM EDT [place] PA-C LAB BLOOD ORDERABLES Final Result [facility]
[address] [place] [address], * (ABNORMAL) TSH (12/28/2024 1:52 PM EDT) Pathologist [facility] TSH 0.017(L) 0.270 - 4.200 uIU/mL 12/29/2024 12:47 AM EDT [facility] Blood Venipuncture / Unknown 12/28/2024 1:52 PM EDT 12/28/2024 1:53 PM EDT Orggercone health moses cone hospitalOtterologynacot PA-C LAB BLOOD ORDERABLES Final Result [facility]
[address] [place] [address], documented in this encounter Visit Diagnoses Diagnosis Hyperthyroidism- Primary Thyrotoxicosis without mention of goiter or other cause, without mention of thyrotoxic crisis or storm Multinodular goiter Nontoxic multinodular goiter documented in this encounter Care Teams Skiver Machine Relationship Specialty Start Date End Date Ernesto Hernandez MD [address] [facility] [address] [place] [address] PCP - General Internal Medicine 12/28/24 01/17/25 documented as of this encounter
--- OUTSIDE RECORDS SUMMARY | 2025-01-18 13:00 | XMS_ITS | Encounter Summary ---
Author Organization [facility] Address [address] [place] [address] Care Team Providers Care Clothing And Textiles Teacher Name Role Phone Mamadou Singletary PA-C Primary Care Provider [phone] Reason for Visit * MRI/CAT/PET Scan (Routine) - Closed Specialty Diagnoses / Procedures Referred By Contac t Referred To Contact Radiology Diagnoses Multinodular goiter Hyperthyroidism Procedures NM Therapy Hyperthyroid Initial NM Thyroid Therapy Ablation Basic Mamadou Singletary PA-C [address] [address] Phone: tel: fax: [facility] [address] [place] [phone] Phone: tel: Referral ID Status Reason Start Date Expiration Date Visits Re quested Visits Authorized [id number] Closed 01/05/2025 04/06/2026 1 1 Encounter Details Date Type Department Care Team (Latest Contact Info) Description 01/18/2025 1:00 PM EDT - 01/18/2025 11:59 PM EDT Hospital Encounter [facility] [address] [place] [phone] Mamadou Singletary PA-C [address] [place] [address] Multinodular goiter; Hyperthyroidism Discharge Disposition: Home or Self Care Social History Tobacco Use Types Packs/Day Years [...] on file documented as of this encounter Medications at Time of Discharge ascorbic acid (VITAMIN C) 500 MG capsule controlled-relea se CR capsule Take 3 capsules by mouth Daily. Barberry-Oreg Grape-Goldenseal (BERBERINE COMPLEX PO) Take by mouth Daily. Ketotifen Fumarate (ZADITOR) 0.035 % solution Administer 1 drop to both eyes 2 (Two) Times a Day. Magnesium Oxide -Mg Supplement 400 (240 Mg) MG tablet Take 1 tablet by mouth Daily. propylthiouracil (PTU) 50 MG tabletIndication s:Hyperthyroidis m Take 1 tablet by mouth 3 (Three) Times a Day. 90 tablet 11 12/28/2024 TURMERIC PO Take 1 tablet by mouth Daily. Unable to find Take 1 each by mouth Daily. Med Name: MIRIAM vitamin B-12 (CYANOCOBALAMIN) 500 MCG tablet Take 1 tablet by mouth Daily. vitamin D3 (vitamin d) 125 MCG (5000 UT) capsule capsule Take 1 capsule by mouth Daily. documented as of this encounter Plan of Treatment Upcoming Encounters Date Type Department Care Team (Late st Contact Info) Description 03/03/2025 2:15 PM EDT Office Visit [facility] [address] [phone] Mamadou Singletary PA-C [address] [address] documented as of this encounter Procedures Procedure Name Priority Date/Time Associated Diagnosis Comments NM THERAPY HYPERTHYROID INITIAL Routine 01/18/2025 2:33 PM EDT Multinodular goiter Hyperthyroidism documented in this encounter Results * NM Therapy Hyperthyroid Initial (01/18/2025 2:33 PM EDT) Anatomical Region Laterality Modality Head and Neck Nuclear Medicine 01/30/2025 8:37 AM EDT Impressions 01/30/2025 8:39 AM EDT Right I-131 thyroid therapy without complication. Electronically Signed: Thomas Gonzalez MD 01/30/2025 8:39 AM EDT Workstation ID: [id number] Narrative 01/30/2025 8:39 AM EDT DATE OF EXAM: 01/18/2025 1:50 PM EDT PROCEDURE: NM THERAPY HYPERTHYROID INITIAL INDICATIONS: toxic multinodular goiter. COMPARISON: No comparisons available. PROCEDURE: Informed consent was obtained. The risk and benefits of I-131 therapy were discussed. The patient ingested a capsule containing 30.8 mCi of I-131 without difficulty. No images were obtained. FINDINGS: Informed written consent was obtained from the patient prior to beginning. Treatment procedure including mechanism of action, possible posttreatment side effects and posttreatment contact precautions were discussed in detail with the patient both by me and the nuclear engineer. She was furnished with a written list of posttreatment contact precautions for her reference. She indicated her understanding and agrees to treatment. Accordingly, the dose of 30.8 mCi of iodine-131 was administered the patient without complication. Procedure Note Thomas Gonzalez MD - 01/30/2025 DATE OF EXAM: 01/18/2025 1:50 PM EDT PROCEDURE: NM THERAPY HYPERTHYROID INITIAL INDICATIONS: toxic multinodular goiter. COMPARISON: No comparisons available. PROCEDURE: Informed consent was obtained. The risk and benefits of I-131therapy were discussed. The patient ingested a capsule containing 30.8 mCiof I-131 without difficulty. No images were obtained. FINDINGS: Informed written consent was obtained from the patient prior to beginning.Treatment procedure including mechanism of action, possible posttreatmentside effects and posttreatment contact precautions were discussed indetail with the patient both by me and the nuclear engineer. She was furnished with a writtenlist of posttreatment contact precautions for her reference. She indicatedher understanding and agrees to treatment. Accordingly, the dose of 30.8mCi of iodine-131 was administered the patient without complication. IMPRESSION: Right I-131 thyroid therapy without complication. Electronically Signed: Thomas Gonzalez MD 01/30/2025 8:39 AM EDT Workstation ID: [id number] Mamadou Singletary PA-C [facility] [place] ORDERABLES Final Res ult documented in this encounter Visit Diagnoses Diagnosis Multinodular goiter Nontoxic multinodular goiter Hyperthyroidism Thyrotoxicosis without mention of goiter or other cause, without mention of thyrotoxic crisis or storm documented in this encounter Administered Medications Inactive Administered Medications - up to 3 most recent administrations Medication Order MAR Action Action Date Dose Rate Site sodium iodide (I-131) oral capsule (therapeutic) 100 millicurie 100 millicurie (1 capsule), Oral, Once in Imaging, On Fri01/18/25 at 1401, For 1 dose, THERAPEUTIC, Millicuries: 30.8 Given 01/18/2025 2:01 PM EDT 30.8 millicuries documented in this encounter Care Teams Clothing And Textiles Teacher Relationship Specialty Start Date End Date Mamadou Singletary PA-C [address] [place] [phone] PCP - General Physician Jewel Inspector 01/18/25 documented as of this encounter
--- OUTSIDE RECORDS SUMMARY | 2025-01-21 10:55 | XMS_ITS | Encounter Summary ---
Author Organization Healthcare Address [address] [id number] Care Team Providers Care Mooner Name Role Phone Pcp, No Primary Care Provider Unavailabl e Encounter Details Date Type Department Care Team (Late st Contact Info) Description 01/21/2025 10:55 AM EDT Ancillary Procedure [id number] [phone] Chest pain Social History Tobacco Use Types Packs/Day Years [...] Procedure Name Priority Date/Time Associated Diagnosis Comments CT ANGIO CARDIAC CORONARY ARTERIES Routine 01/21/2025 10:52 AM EDT Chest pain documented in this encounter Results * CT Angio Cardiac Coronary Arteries (01/21/2025 10:52 AM EDT) Anatomical Region Laterality Modality Heart Computed Tomogra phy Impressions 01/21/2025 2:38 PM EDT 1. Severe coronary calcification with an Agatston score = 691 using the AJ-130 method, which represents 87 percentile when matched for age, gender and ethnicity. Vascular age is 88 years. 2. Image noise prevented assessment of the proximal/mid LAD where there is plaque 3. CAD-RADS N: Management recommendations: Additional or alternative evaluation may be needed. 4. No significant non coronary cardiac findings in particular normal cardiac chambers, non-coronary vessels in the field of view and unremarkable pericardium. 5. Extracardiac structures in the field of view are unremarkable. CRITICAL RESULT: No. COMMUNICATION: Per this written report. Drafted by Demian Espitia MD on 01/21/2025 11:05 AM Final report signed by Demian Espitia MD on 01/21/2025 2:38 PM Narrative 01/21/2025 2:38 PM EDT CLINICAL INDICATION: 79 years Female Symptoms: Chest pain with clinical features suggesting myocardial ischemia TECHNIQUE: Procedure Data Image Acquisition: Images were acquired at [facility] in [place], and interpreted at [facility]. A 128-slice MDCT scanner ([employer]) was used for data acquisition. A non-contrast coronary calcium scan was initially performed. was performed. Bolus tracking in the ascending aorta with a threshold of 180HU. Immediately afterwards, ECG synchronized Cardiac CT was then performed from cardiac base to apex using retrospective gating with ECG tube current modulation. A total of 85 mL Isovue 370mg/mL contrast media was administered at 5 mL/sec followed by a saline flush using a biphasic injection protocol. A tube voltage of 120 kVp was used. The patient received the following medications prior to the Cardiac CT: 0.4mg sublingual nitroglycerin. The average heart rate at the time of acquisition was 57 bpm (55-59bpm) Regular Image Reconstruction: Transaxial images were reconstructed at 0.63 mm slice thickness. Data was reviewed interactively on an advanced workstation (SwipeStation) capable of 2 and 3 dimensional displays in all conventional reconstruction formats including multiplanar reformations, maximum intensity projections, curved multiplanar reformations, and volume rendered reconstructions. Selected routine images displaying relevant coronary anatomy and pathology were saved and sent to PACS. Complications: None Technical Quality: Overall image quality is Suboptimal due to breathing motion and coronary motion Coronary artery opacification is Adequate Total DLP (Dose-Length Product): 1513.6mGycm. (21.2 mSv) Please note: The reported value represents the total of one or more individual components during the CT acquisition on this date and at this time, and as such, the same value may appear in more than one CT report depending on the interpreting/reporting physicians. COMPARISON: None. FINDINGS: -CT Coronary Calcium Scoring- LMA= 0 LAD= 342 LCX= 29 RCA= 319 Total calcium score = 691 using the AJ-130 method. This score is in the 87 percentile rank for age and gender, meaning that 13 % of patients of the same age and gender will have a higher score. The total volume score is 556. The calculated vascular age for this patient is 88 years. There is calcification in the aortic wall. -Coronary CT Angiography- Coronary Arteries: The coronaries have normal origin and proximal course (LAD and LCx have separate ostia off the L cusp). The coronary arterial system is right dominant. Note: Stenosis is reported as maximum percentage diameter stenosis. Stenosis grading is reported using the following scheme. Quantitative Stenosis Grading: CAD-RADS 0: 0% - No visible stenosis CAD-RADS 1: 1-24% - Minimal stenosis CAD-RADS 2: 25-49% - Mild stenosis CAD-RADS 3: 50-69% - Moderate stenosis CAD-RADS 4A: 70-99% - Severe stenosis in 1-2 vessels CAD-RADS 4B: Left main >50%, or 3 vessel >70% CAD-RADS 5: 100% - Occluded LAD and Diagonals: CAD-RADS N. Large vessel that gives off a diagonal and reaches the apex. The vessel has calcified plaque in the proximal and mid segment, but unable to assess for stenosis due to image noise. LCx and Obtuse Marginals: CAD-RADS 0 Large vessel that gives off an OM and terminates as an AV LCx. No visualized atherosclerotic plaque. RCA: CAD-RADS N Large dominant vessel that gives off a RV marginal, PDA and PL. Mild stenosis with mixed plaque in the mid RCA. Unable to visualize PDA/PL well. Non Coronary Cardiac Findings: Normal cardiac chamber size. No pericardial thickening or calcification. Normal interatrial and interventricular septum, atrioventricular valves, ventriculo-arterial valves, pulmonary veins and imaged central veins. Central and branch pulmonary arteries in the field of view are unremarkable. Thoracic aorta and imaged thoracic aortic branches in the field of view are unremarkable. Extra Cardiac Structures: No significant extracardiac findings. Procedure Note Demian Espitia MD - 01/21/2025 CLINICAL INDICATION: 79 years Female Symptoms: Chest pain with clinical features suggesting myocardialischemia TECHNIQUE: Procedure Data Image Acquisition: Images were acquired at [facility] in [place], andinterpreted at [facility]. A 128-slice MDCT scanner ([employer]) was used for data acquisition. A non-contrast coronarycalcium scan was initially performed. was performed. Bolus tracking in theascending aorta with a threshold of 180HU. Immediately afterwards, ECGsynchronized Cardiac CT was then performed from cardiac base to apex usingretrospective gating with ECG tube current modulation. A total of 85 mLIsovue 370mg/mL contrast media was administered at 5 mL/sec followed by asaline flush using a biphasic injection protocol. A tube voltage of 120kVp was used. The patient received the following medications prior to the Cardiac CT:0.4mg sublingual nitroglycerin. The average heart rate at the time of acquisition was 57 bpm (55-59bpm)Regular Image Reconstruction: Transaxial images were reconstructed at 0.63 mm slice thickness. Data wasreviewed interactively on an advanced workstation (SwipeStation) capable of 2and 3 dimensional displays in all conventional reconstruction formatsincluding multiplanar reformations, maximum intensity projections, curvedmultiplanar reformations, and volume rendered reconstructions. Selectedroutine images displaying relevant coronary anatomy and pathology weresaved and sent to PACS. Complications: None Technical Quality: Overall image quality is Suboptimal due to breathing motion and coronarymotion Coronary artery opacification is Adequate Total DLP (Dose-Length Product): 1513.6mGycm. (21.2 mSv) Please note: Thereported value represents the total of one or more individual componentsduring the CT acquisition on this date and at this time, and as such, thesame value may appear in more than one CT report depending on theinterpreting/reporting physicians. COMPARISON: None. FINDINGS: -CT Coronary Calcium Scoring- LMA= 0 LAD= 342 LCX= 29 RCA= 319 Total calcium score = 691 using the AJ-130 method. This score is in the 87percentile rank for age and gender, meaning that 13 % of patients of thesame age and gender will have a higher score. The total volume score is556. The calculated vascular age for this patient is 88 years. There is calcification in the aortic wall. -Coronary CT Angiography- Coronary Arteries: The coronaries have normal origin and proximal course (LAD and LCx haveseparate ostia off the L cusp). The coronary arterial system is rightdominant. Note: Stenosis is reported as maximum percentage diameter stenosis.Stenosis grading is reported using the following scheme. Quantitative Stenosis Grading: CAD-RADS 0: 0% - No visible stenosis CAD-RADS 1: 1-24% - Minimal stenosis CAD-RADS 2: 25-49% - Mild stenosis CAD-RADS 3: 50-69% - Moderate stenosis CAD-RADS 4A: 70-99% - Severe stenosis in 1-2 vessels CAD-RADS 4B: Left main >50%, or 3 vessel >70% CAD-RADS 5: 100% - Occluded LAD and Diagonals: CAD-RADS N. Large vessel that gives off a diagonal andreaches the apex. The vessel has calcified plaque in the proximal and midsegment, but unable to assess for stenosis due to image noise. LCx and Obtuse Marginals: CAD-RADS 0 Large vessel that gives off an OM andterminates as an AV LCx. No visualized atherosclerotic plaque. RCA: CAD-RADS N Large dominant vessel that gives off a RV marginal, PDAand PL. Mild stenosis with mixed plaque in the mid RCA. Unable tovisualize PDA/PL well. Non Coronary Cardiac Findings: Normal cardiac chamber size. No pericardial thickening or calcification. Normal interatrial and interventricular septum, atrioventricular valves,ventriculo-arterial valves, pulmonary veins and imaged central veins. Central and branch pulmonary arteries in the field of view areunremarkable. Thoracic aorta and imaged thoracic aortic branches in the field of vieware unremarkable. Extra Cardiac Structures: No significant extracardiac findings. IMPRESSION: 1. Severe coronary calcification with an Agatston score = 691 using theAJ-130 method, which represents 87 percentile when matched for age, genderand ethnicity. Vascular age is 88 years. 2. Image noise prevented assessment of the proximal/mid LAD where there isplaque 3. CAD-RADS N: Management recommendations: Additional or alternativeevaluation may be needed. 4. No significant non coronary cardiac findings in particular normalcardiac chambers, non-coronary vessels in the field of view andunremarkable pericardium. 5. Extracardiac structures in the field of view are unremarkable. CRITICAL RESULT: No. COMMUNICATION: Per this written report. Drafted by Demian Espitia MD on 01/21/2025 11:05 AM Final report signed by Demian Espitia MD on 01/21/2025 2:38 PM us Arielle Lee MANAGER ESTATE IMG CT PROCEDURES Final Resu lt documented in this encounter Visit Diagnoses Diagnosis Chest pain Unspecified chest pain documented in this encounter Care Teams Mooner Relationship Specialty Start Date End Date Pcp, Natalia [address] [place] [address] PCP - General Family Medicine 04/17/23 documented as of this encounter
--- OUTSIDE RECORDS SUMMARY | 2025-02-15 15:17 | XMS_ITS | Encounter Summary ---
Author Organization [facility] Address [address] [place] [address] Care Team Providers Care Taxicab Starter Name Role Phone Mamadou Singletary PA-C Primary Care Provider Encounter Details Date Type Department Care Team (Late st Contact Info) Description 01/11/2025 Telephone [facility] [address] [facility] [address] [place] [address] Mamadou Singletary PA-C [address] [facility] [address] [place] [address] Social History Tobacco Use Types Packs/Day Years [...] PATIENT RETURNED OUR CALL. PHONE NUMBER IS [phone] * Telephone Encounter - Rohini Dejesus - [...] Can she get a call back to [facility] her, juan pablo documented in this encounter Plan of Treatment Upcoming Encounters Date Type Department Care Team (Late st Contact Info) Description 03/03/2025 2:15 PM EDT Office Visit [facility] ENDOCRINOLOGY [address] [phone] Mamadou Singletary PA-C [address] [address] documented as of this encounter Visit Diagnoses Not on filedocumented in this encounter Care Teams Taxicab Starter Relationship Specialty Start Date End Date Mamadou Singletary PA-C [address] [address] PCP - General Physician Cone Classifier Tender 01/18/25 documented as of this encounter
--- OUTSIDE RECORDS SUMMARY | 2025-02-15 15:17 | XMS_ITS | Encounter Summary ---
Author Organization [facility] Address [address] [place] [address] Care Team Providers Care Professional Nursing Assistant Name Role Phone Mamadou Singletary PA-C Primary Care Provider [phone] Encounter Details Date Type Department Care Team [...] Description 03/03/2025 2:15 PM EDT Office Visit [facility] ENDOCR[facility]OLOG[facility] [address] [phone] Mamadou Singletary PA-C [address] [facility] [address] [address] documented as of this encounter Visit Diagnoses Not on filedocumented in this encounter Care Teams Professional Nursing Assistant Relationship Specialty Start Date End Date Mamadou Singletary PA-C 1775 [facility] [address] [place] [address] PCP - General Physician Sand Cutting Machine Operator 01/18/25 documented as of this encounter
--- OUTSIDE RECORDS SUMMARY | 2025-02-15 15:17 | XMS_ITS | Clinical Summary ---
Author Organization [facility] Address [address] [place] [address] Care Team Providers Care Horologist Name Role Phone None, None Primary Care [...] EDT) Cholesterol 228(H) 0 - 199 mg/dL [facility] Comment: TOTAL CHOLESTEROL INTERPRETATION: Less than 200 mg/dL Desireable 200-239 mg/dL Borderline Greater or Equal to 240 mg/dL High LDL Calculated 158(H) 0 - 100 mg/dL [facility] Comment: LDL CHOLESTEROL INTERPRETATION: Less than 100 mg/dL Optimal 100-129 mg/dL Near optimal/above optimal 130-159 mg/dL Borderline High 160-189 mg/dL High Greater or Equal to 190 mg/dL Very High HDL 43 40 - 180 mg/dL [facility] Comment: HDL CHOLESTEROL INTERPRETATION: Less than 40 mg/dL Low Greater than 60 mg/dL Desirable Triglycerides 136 0 - 150 mg/dL [facility] Comment: TOTAL TRIGLYCERIDE INTERPRETATION: Less than 150 mg/dL Normal 150-199 mg/dL Borderline HIgh 200-499 mg/dL High Greater or Equal to 500 mg/dL Very High Plasma (Plasma) 02/05/2012 1 1:30 AM EDT 02/05/2012 1:59 PM EDT Narrative [facility] - 02/05/2012 2:56 PM EDT Has the patient fasted?->Yes us Jude Segundo MD CHEMISTRY ORDERABLES Final Res ult [facility] [address] from Last 3 Months or Most Recently Relevant to Health Maintenance Insurance MEDICARE MEDICARE Care Teams Horologist Relationship Specialty Start Date End Date None, None [address] [place] [address] PCP - General 04/23/19
--- OUTSIDE RECORDS SUMMARY | 2025-02-15 15:17 | XMS_ITS | Encounter Summary ---
Author Organization [facility] Address [address] [place] [address] Care Team Providers Care Senior Ui Designer Name Role Phone Mamadou Singletary PA-C Primary Care Provider Encounter Details Date Type Department Care Team (Late st Contact Info) Description 12/29/2024 Results Follow-Up [facility] [address] Mamadou Singletary PA-C [address] [place] [address] Social History Tobacco Use Types Packs/Day [...] 03/03/2025 2:15 PM EDT Office Visit [facility] [address] [address] Mamadou Singletary PA-C [address] [address] documented as of this encounter Visit Diagnoses Not on filedocumented in this encounter Care Teams Senior Ui Designer Relationship Specialty Start Date End Date Mamadou Singletary PA-C [address] [place] [address] PCP - General Physician Product Development Actuary 01/18/25 documented as of this encounter
--- OUTSIDE RECORDS SUMMARY | 2025-02-15 15:17 | XMS_ITS | Encounter Summary ---
[facility] Address [address] [place] [address] Care Team Providers Care Assistant Merchandise Manager Name Role Phone Mamadou Singletary PA-C Primary Care Provider [phone] Encounter Details Date Type Department Care Team (Late st Contact Info) Description 01/31/2025 Results Follow-Up [facility] [address] [address] Mamadou Singletary PA-C [address] [place] [address] Social History Tobacco Use Types Packs/Day [...] 2:15 PM EDT Office Visit [facility] [address] [facility] [address] [place] [address] Mamadou Singletary PA-C 1774 [facility] [address] [place] [address] documented as of this encounter Visit Diagnoses Not on filedocumented in this encounter Care Teams Assistant Merchandise Manager Relationship Specialty Start Date End Date Mamadou Singletary PA-C 1776 [facility] [address] [place] [address] PCP - General Physician Revenue Field Auditor 01/18/25 documented as of this encounter
--- OUTSIDE RECORDS SUMMARY | 2025-02-15 15:17 | XMS_ITS | Encounter Summary ---
Author Organization [facility] Address [address] [place] [address] Care Team Providers Care Gang Drill Operator Name Role Phone Ernesto Hernandez MD Primary Care Provider [phone] Encounter Details Date Type Department Care Team [...] Visit [facility] [address] [address] Mamadou Singletary PA-C 1775 [facility] 50 [place] [address] documented as of this encounter Visit Diagnoses Not on filedocumented in this encounter Care Teams Gang Drill Operator Relationship Specialty Start Date End Date Ernesto Hernandez MD 1210 [facility] [address] [place] [address] PCP - General Internal Medicine 12/28/24 01/17/25 documented as of this encounter
--- OUTSIDE RECORDS SUMMARY | 2025-02-15 15:17 | XMS_ITS | Encounter Summary ---
[facility] Address [address] [place] [address] Care Team Providers Care Dealer Relationship Manager Name Role Phone Mamadou Singletary PA-C Primary Care Provider [phone] Encounter Details Date Type Department Care Team (Late st Contact Info) Description 02/11/2025 Telephone [facility] 30[address] [facility] [address] [place] [address] Mamadou Singletary PA-C [facility] [facility] [address] [place] [address] Social History Tobacco Use Types Packs/Day Years [...] encounter Miscellaneous Notes * Telephone Encounter - April Gonzalez MA - 02/15/2025 2:11 PM EDT ATTEMPTED TO CALL NO ANSWER, NO VM. * Telephone Encounter - Marcello Hunter MA - 02/14/2025 1:55 PM EDT Spoke with patient. Informed patient of Paige's information. 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 She also states that her pcp is no longer working so she is trying to establish with a new doctor soon so they can help keep track of everything that she is going though. She states that when she had went in for th e stents the doctor had asked her why she was not on any thyroid medications? She did not know how to answer this question due to her feeling lost when it comes to her thyroid treatment. Patient states that when she went in for the ablation the provider told her that they do them in parts now and that she may need to have it done 3 times to fully remove the thyroid. She says that she refuses to have this done again due to the pain and she feels that the swelling in the neck is already coming back. * Telephone Encounter - Benton Tillman PCT - 02/11/2025 2:34 PM EDT PT CALLED STATING SHE HAD PROCEDURE AND IS UNSURE WHAT IS WAS EXACTLY. SHE STATED SHE WAS HOSPITALIZED RECENTLY FOR AFIB. SHE STATED SHE WAS UNABLE TO ANSWER Q's REGARDING HER THYROID AND SHE IS UPSET B/C WE HAVEN'T FOLLOWED UP WITH HER. SHE REQUESTED A CALL BACK TO CONSULT. documented in this encounter Plan of Treatment Upcoming Encounters Date Type Department Care Team (Late st Contact Info) Description 03/03/2025 2:15 PM EDT Office Visit [facility] ENDOCRINOLOGY [address] [address] Mamadou Singletary PA-C 1775 [facility] [address] [place] [address] documented as of this encounter Visit Diagnoses Not on filedocumented in this encounter Care Teams Dealer Relationship Manager Relationship Specialty Start Date End Date Mamadou Singletary PA-C [address] [facility] [address] [place] [address] PCP - General Physician Market Research Specialist 01/18/25 documented as of this encounter
--- OUTSIDE RECORDS SUMMARY | 2025-02-15 15:17 | XMS_ITS | Encounter Summary ---
Author Organization [facility] Address [address] [place] [address] Care Team Providers Care Leaf Stamper Name Role Phone Ernesto Hernandez MD Primary Care Provider [phone] Encounter Details Date Type Department Care Team (Late st Contact Info) Description 01/03/2025 Telephone [facility] 3084 [facility] 100 [place] [address] Sonia Singletary PA-C 1774 [facility] [address] [place] [address] Social History Tobacco Use Types Packs/Day Years [...] SEE WHAT SONIA SUGGESTS. PHONE NUMBER IS [phone] documented in this encounter Plan of Treatment Upcoming Encounters Date Type Department Care Team (Late st Contact Info) Description 03/03/2025 2:15 PM EDT Office Visit [facility] ENDOCRINOLOGY [address] [phone] Snoia Singletary PA-C [address] [address] documented as of this encounter Visit Diagnoses Diagnosis Hyperthyroidism Thyrotoxicosis without mention of goiter or other cause, without mention of thyrotoxic crisis or storm documented in this encounter Care Teams Leaf Stamper Relationship Specialty Start Date End Date Ernesto Hernandez MD [address] [facility] [address] [address] PCP - General Internal Medicine 12/28/24 01/17/25 documented as of this encounter
--- OUTSIDE RECORDS SUMMARY | 2025-02-15 15:17 | XMS_ITS | Clinical Summary ---
Author Organization [facility] Address [address] [place] [address] Care Team Providers Care Denture Model Maker Name Role Phone Carolynn Pelletier MD Primary Care Provider [phone] Source Comments This information has been disclosed [...] therelease of HIV test results or diagnoses. [id number] Allergies Active Allergy Reactions Criticality Noted Date [...] (Adult) (1 - 1-dose 75+ series) 01/08 Depression Screening 12/23/2024 12/24/2023 Immunization: COVID-19 ( season) 2025 Immunization: Influenza (MyChart) (#1) 2025 Immunization: DTaP/Tdap/Td (2 - Td or Tdap) 06/09/2027 06/09/2017 Insurance [employer] PPO MEDICARE Care Teams Denture Model Maker Relationship Specialty Start Date End Date Carolynn Pelletier MD [address] [place] [address] [address] [place] [address] PCP - General Family Medicine 12/31/23
--- OUTSIDE RECORDS SUMMARY | 2025-02-15 15:17 | XMS_ITS | Clinical Summary ---
Author Organization [facility] Address [address] [place] [address] Care Team Providers Care Telephone Service Adviser Name Role Phone Mamadou Singletary PA-C Primary [...] review, despite reviewing records from [facility] and [facility] Most likely, well-controlled on methimazole, but [...] Encounters Date Type Department Care Team Description 02/11/[address] [facility] END[facility]CR[facility]OLOGY [address] [facility] [address] [place] [address] Mamadou Singletary PA-C 01/31/2025 Results Follow-Up [facility] ENDOCR[facility]OLOGY [address] [place] [address] Mamadou Singletary PA-C 01/18/2025 1:00 PM EDT - 01/18/2025 11:59 PM EDT Hospital Encounter [facility] NUCLEAR MEDICINE [address] [place] [phone] Mamaodu Singletary PA-C Multinodular goiter; Hyperthyroidism Discharge Disposition: Home or Self Care 01/18/2025 Travel 01/11/[address] [facility] ENDOCRINOLOGY 3084 [facility] 100 [place] [address] Mamadou Singletary PA-C 01/03/[address] [facility] ENDOCRINOLOGY 3084 [facility] 100 [place] [address] Mamadou Singletary PA-C 12/29/2024 Results Follow-Up [facility] ENDOCRINOLOGY [address] [address] Mamadou Singletary PA-C 12/28/2024 1:00 PM EDT Office Visit [facility] ENDOCRINOLOGY [address] [address] Mamadou Singletary PA-C Hyperthyroidism (Primary Dx); [...] Description 03/03/2025 2:15 PM EDT Office Visit [facility] ENDOCRINOLOGY [address] [phone] EdMamadou shah PA-C [address] [place] [address] Health Maintenance Due Date Last Done Comments [...] MD 01/30/2025 8:39 AM EDT Workstation ID: [id number] Narrative 01/30/2025 8:39 AM EDT DATE OF [...] patient both by me and the nuclear design engineer. She was furnished with a written [...] patient both by me and the nuclear design engineer. She was furnished with a writtenlist of posttreatment contact precautions for her reference. She indicatedher understanding and agrees to treatment. Accordingly, the dose of 30.8mCi of iodine-131 was administered the patient without complication. IMPRESSION: Right I-131 thyroid therapy without complication. Electronically Signed: Thomas Gonzalez MD 01/30/2025 8:39 AM EDT Workstation ID: [id number] Mamadou Singletary PA-C IMG NM ORDERABLES Final Res ult * Thyroid Stimulating Immunoglobulin (12/28/2024 1:52 PM EDT) Thyroid Stimulating Immunoglobulin <0.10 0.00 - 0.55 IU/L 01/02/2025 4:09 PM EDT [facility] Blood Structure of left upper limb / Unknown Venipuncture / Unknown 12/28/2024 1:52 PM EDT 12/28/2024 1:53 PM EDT Narrative [facility] - 01/02/2025 4:09 PM EDT Performed at: [address] [place] [id number] Television News Producer: Eder Mauricio MD, Phone: [phone] Mamadou Singletary PA-C LAB BLOOD ORDERABLES Final Result [facility] [address] [place] [address], * T3, Free (12/28/2024 1:52 PM EDT) T3, Free 4.13 2.00 - 4.40 pg/mL 12/29/2024 12:47 AM EDT [facility] Blood Venipuncture / Unknown 12/28/2024 1:52 PM EDT 12/28/2024 1:53 PM EDT Mamadou Yeungot PA-C LAB BLOOD ORDERABLES Final Result [facility]
[address] [place] [address], * (ABNORMAL) TSH (12/28/2024 1:52 PM EDT) Pathologist [facility] TSH 0.017(L) 0.270 - 4.200 uIU/mL 12/29/2024 12:47 AM EDT [facility] Blood Venipuncture / Unknown 12/28/2024 1:52 PM EDT 12/28/2024 1:53 PM EDT Mamadou Yeungot PA-C LAB BLOOD ORDERABLES Final Result [facility]
[address] [place] [address], * T4, Free (12/28/2024 1:52 PM EDT) Free T4 1.32 0.92 - 1.68 ng/dL 12/29/2024 12:47 AM EDT [facility] Blood Venipuncture / Unknown 12/28/2024 1:52 PM EDT 12/28/2024 1:53 PM EDT Mamadou Singletary PA-C LAB BLOOD ORDERABLES Final Result [facility]
[address] [place] [address], * ECG Scan (11/18/2024) [facility] ECG ORDERABLES Final Result from Last 3 Months Insurance MEDICARE A & [employer] Care Teams Telephone Service Adviser Relationship Specialty Start Date End Date Mamadou Singletary PA-C [address] [address] PCP - General Physician Ripsaw Grader 01/18/25
--- OUTSIDE RECORDS SUMMARY | 2025-02-15 15:17 | XMS_ITS | Clinical Summary ---
Author Organization Healthcare Address [address] [place] [address] Care Team Providers Care Geodetic Engineer Name Role Phone Pcp, No Primary Care Provider Unavailabl e Encounters Date Type Department Care Team Description 01/21/2025 10:55 AM EDT Ancillary Procedure [address] [facility] [address] [place] [phone] Chest pain from Last 3 Months Social [...] r (1 - 1-dose 75+ series) 2021 [id number] Vaccine (1 - 20 24-25 season) 2024 [...] Data Image Acquisition: Images were acquired at [facility] in [place], and interpreted at [facility]. A 128-slice MDCT scanner (Club Pointa View) was used for data acquisition. A [...] was reviewed interactively on an advanced workstation ([employer]) capable of 2 and 3 dimensional displays [...] Data Image Acquisition: Images were acquired at [facility] in [place], andinterpreted at [facility]. A 128-slice MDCT scanner (Phantom) was used for data acquisition. A non-contrast [...] Data wasreviewed interactively on an advanced workstation ([employer]) capable of 2and 3 dimensional displays in [...] MD on 01/21/2025 2:38 PM Arielle Lee SPANISH SPEAKING BABYSITTER IMG CT PROCEDURES Final Resu lt from Last 3 Months Insurance MEDICARE [employer] Care Teams Geodetic Engineer Relationship Specialty Start Date End Date Pcp, Natalia [address] [place] [address] PCP - General Family Medicine 04/17/23
[2025-02-15 16:23] LABS: Hematocrit 40.2 % (37.0-47.0); Hemoglobin 13.0 g/dL (12.2-16.2); Immature Granulocytes % 0.2 %; Mean Corpuscular HGB Conc 32.3 g/dL (31.8-35.4); Mean Corpuscular Hemoglobin 29.1 pg (27.0-31.2); Mean Corpuscular Volume 90.1 fl (81-99); Nucleated Red Blood Cells % 0 %; Platelet Count 181 K/mm3 (142-424); Red Blood Count 4.46 M/mm3 (4.20-5.40); Red Cell Distribution Width-SD 43.6 fL; White Blood Count 6.2 K/mm3 (4.8-10.8)
[2025-02-15 16:46] LABS: Alanine Aminotransferase 20 U/L (12-78); Albumin Level 4.1 g/dl (3.5-5.0); Alkaline Phosphatase 93 U/L (38-126); Anion Gap 11.8 mEq/L (5-15); Aspartate Amino Transferase 27 U/L (14-36); Bilirubin,Direct 0.2 mg/dl (0.0-0.4); Bilirubin,Indirect 0.5 mg/dL (0.0-0.9); Bilirubin,Total 0.7 mg/dl (0.2-1.3); Bilirubin,Unconjugated 0.5 mg/dL (0.0-1.1); Blood Urea Nitrogen 23 mg/dl (7-17); Calcium 10.6 mg/dl (8.4-10.2); Carbon Dioxide 27 mmol/L (22.0-30.0); Chloride 106 mmol/L (98-107); Cholesterol 129 mg/dl (140-200); Creatinine,Serum 0.60 mg/dl (0.52-1.04); Estimated Glomerular Filt Rate 96 ml/min (>60); GFR (African American) 117 ML/MIN (>60); Glucose 113 mg/dl (74-100); HDL Cholesterol 33 mg/dl (40-60); Magnesium 1.6 mg/dl (1.6-2.3); Potassium 4.8 mmoL/L (3.5-5.1); Sodium 140 mmol/L (136-145); Total Protein,Serum 6.5 g/dl (6.3-8.2); Triglycerides 159 mg/dl (30-150)
[2025-02-15 17:02] LABS: Free T4 (Free Thyroxine) 2.77 ng/dl (0.78-2.19)
[2025-02-15 17:16] LABS: Thyroid Stimulating Hormone < 0.02 uIU/mL (0.465-4.68)
== END 2025-02-15 23:59 | disposition home or self-care (01) ==
PROVIDERS: PCP Family Medicine; Visit Provider Internal Medicine
DX: I25.10 Atherosclerotic heart disease of native coronary artery without angina pectoris (principal); I10 Essential (primary) hypertension; R42 Dizziness and giddiness; E78.5 Hyperlipidemia, unspecified
CPT/HCPCS: 36415; 80048; 80061; 80076; 83735; 84439; 84443; 85025

== ENCOUNTER 2025-02-21 10:54 | Inpatient (IN) | payer MEDICARE, OTHER, SELFPAY ==
--- OUTSIDE RECORDS SUMMARY | 2024-12-28 13:00 | XMS_ITS | Encounter Summary ---
Author Organization [facility] Address [address] [place] [address] Care Team Providers Care Industrial Sewer Name Role Phone Ernesto Hernandez MD Primary Care Provider [phone] Reason for Visit * Reason Comments LOW TSH Encounter Details Date Type Department Care Team (Late st Contact Info) Description 12/28/2024 1:00 PM EDT Office Visit [facility] [address] [address] Mamadou Singletary PA-C [address] [place] [address] Hyperthyroidism (Primary Dx); Multinodular goiter Social History [...] available for review, despite reviewing records from [facility] and [facility] Most likely, well-controlled on methimazole, but patient [...] was 10.5 Subjective Patient was born where: [place]. 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 T3 No results found for: M2ZHCQI TPO No results found for: THYROIDAB TG [...] the need for FNA. Dev. Enrico MARCELO childbirth educator, Division of Endocrinology, Thyroid and parathyroid tumor program, [facility], [facility]. HCI office: Tel [phone] and Fax - [phone] [facility] office: Tel: [phone] and Fax [phone] Errors: Courtesy of Roxanne Dictation. Exam End: 09/04/16 13:26 Last Resulted: 09/04/16 18:04 Received From: [facility] NECK ULTRASOUND Pre-op Diagnosis: toxic multi-nodular goiter [...] available for review, despite reviewing records from [facility] and [facility] Most likely, well-controlled on methimazole, but patient [...] Description 03/03/2025 2:15 PM EDT Office Visit [facility] [address] [address] Mamadou Singletary PA-C [address] [address] documented as of this encounter Procedures Procedure [...] - 01/02/2025 4:09 PM EDT Performed at: [facility] [id number] See Supervisor: Eder Mauricio MD, Phone: [phone] Mamadou TeamLease Servicesalyssa KHAN-C LAB BLOOD ORDERABLES Final Result Performing Organization Address [facility]/ZIP Co de Phone Number [facility] [address] [place] [address], * T3, Free (12/28/2024 1:52 PM EDT) Pathologist [facility] T3, Free 4.13 2.00 - 4.40 pg/mL 12/29/2024 12:47 AM EDT [facility] Blood Venipuncture / Unknown 12/28/2024 1:52 PM EDT 12/28/2024 1:53 PM EDT Explore.To Yellow PagesbrendaTapCrowd PA-C LAB BLOOD ORDERABLES Final Result [facility]
[address] [place] [address], * T4, Free (12/28/2024 1:52 PM EDT) Free T4 1.32 0.92 - 1.68 ng/dL 12/29/2024 12:47 AM EDT [facility] Blood Venipuncture / Unknown 12/28/2024 1:52 PM EDT 12/28/2024 1:53 PM EDT Parsely PA-C LAB BLOOD ORDERABLES Final Result [facility]
[address] [place] [address], * (ABNORMAL) TSH (12/28/2024 1:52 PM EDT) Pathologist [facility] TSH 0.017(L) 0.270 - 4.200 uIU/mL 12/29/2024 12:47 AM EDT [facility] Blood Venipuncture / Unknown 12/28/2024 1:52 PM EDT 12/28/2024 1:53 PM EDT Explore.To Yellow Pagesunc health appalachianMetaCDNnacot PA-C LAB BLOOD ORDERABLES Final Result [facility]
[address] [place] [address], documented in this encounter Visit Diagnoses Diagnosis Hyperthyroidism- Primary Thyrotoxicosis without mention of goiter or other cause, without mention of thyrotoxic crisis or storm Multinodular goiter Nontoxic multinodular goiter documented in this encounter Care Teams Industrial Sewer Relationship Specialty Start Date End Date Ernesto Hernandez MD [address] [place] [facility] [address] [place] [address] PCP - General Internal Medicine 12/28/24 01/17/25 documented as of this encounter
--- OUTSIDE RECORDS SUMMARY | 2025-01-18 13:00 | XMS_ITS | Encounter Summary ---
Author Organization [facility] Address [address] [place] [address] Care Team Providers Care Dial Screw Assembler Name Role Phone Mamadou Singletary PA-C Primary Care Provider [phone] Reason for Visit * MRI/CAT/PET Scan (Routine) - Closed Specialty Diagnoses / Procedures Referred By Contac t Referred To Contact Radiology Diagnoses Multinodular goiter Hyperthyroidism Procedures NM Therapy Hyperthyroid Initial NM Thyroid Therapy Ablation Basic Mamadou Singletary PA-C [address] [address] Phone: tel: fax: [facility] [address] [place] [phone] Phone: tel: Referral ID Status Reason Start Date Expiration Date Visits Re quested Visits Authorized [id number] Closed 01/05/2025 04/06/2026 1 1 Encounter Details Date Type Department Care Team (Latest Contact Info) Description 01/18/2025 1:00 PM EDT - 01/18/2025 11:59 PM EDT Hospital Encounter [facility] [address] [place] [phone] Mamadou Singletary PA-C [address] [place] [address] Multinodular goiter; Hyperthyroidism Discharge Disposition: Home or [...] Description 03/03/2025 2:15 PM EDT Office Visit [facility] [address] [phone] Mamadou Singletary PA-C [address] [address] documented as of this [...] MD 01/30/2025 8:39 AM EDT Workstation ID: [id number] Narrative 01/30/2025 8:39 AM EDT DATE OF [...] patient both by me and the nuclear equipment operator. She was furnished with a written list [...] patient both by me and the nuclear equipment operator. She was furnished with a writtenlist of posttreatment contact precautions for her reference. She indicatedher understanding and agrees to treatment. Accordingly, the dose of 30.8mCi of iodine-131 was administered the patient without complication. IMPRESSION: Right I-131 thyroid therapy without complication. Electronically Signed: Thomas Gonzalez MD 01/30/2025 8:39 AM EDT Workstation ID: [id number] Mamadou Singletary PA-C [facility] NM ORDERABLES Final Res ult documented in [...] millicuries documented in this encounter Care Teams Dial Screw Assembler Relationship Specialty Start Date End Date Mamadou Singletary PA-C [address] [place] [phone] PCP - General Physician Journeyman Lineman 01/18/25 documented as of this encounter
--- OUTSIDE RECORDS SUMMARY | 2025-01-21 10:55 | XMS_ITS | Encounter Summary ---
Author Organization Healthcare Address [address] [id number] Care Team Providers Care Private Advisor Name Role Phone Pcp, No Primary Care Provider Unavailabl e Encounter Details Date Type Department Care Team (Late st Contact Info) Description 01/21/2025 10:55 AM EDT Ancillary Procedure [address] [place] [address] Chest pain Social History Tobacco Use Types [...] Data Image Acquisition: Images were acquired at [facility] in [place], and interpreted at [facility]. A 128-slice MDCT scanner ([employer] earthmine) was used for data acquisition. A non-contrast [...] was reviewed interactively on an advanced workstation (Watertronix) capable of 2 and 3 dimensional displays [...] Data Image Acquisition: Images were acquired at [facility] in [place], andinterpreted at [facility]. A 128-slice MDCT scanner ([employer] IO) was used for data acquisition. A non-contrast [...] Data wasreviewed interactively on an advanced workstation (Watertronix) capable of 2and 3 dimensional displays in [...] on 01/21/2025 2:38 PM us Arielle Lee PAPER GLUING OPERATOR IMG CT PROCEDURES Final Resu lt documented in this encounter Visit Diagnoses Diagnosis Chest pain Unspecified chest pain documented in this encounter Care Teams Private Advisor Relationship Specialty Start Date End Date Pcp, Natalia [address] [place] [address] PCP - General Family Medicine 04/17/23 documented as of this encounter
[2025-02-21] VITALS (18 sets, daily range): BP systolic 86–168; BP diastolic 55–99; PULSE 42–130; RESP 16–20; TEMP 36.3–36.9; O2SAT 93–97; BMI 33.5; BMI 32.9
--- NOTE | 2025-02-21 10:59 | ECG_ITS ---
APPROVED REPORT Exam: Resting ECG HR:132 bpm ECG Measurements Heart Rate 132 AXES QRSd 76 QRS -1 QT 263 T 60 QTc 341 Conclusion ATRIAL FIBRILLATION WITH RAPID VENTRICULAR RESPONSE LOW QRS VOLTAGE IN PRECORDIAL LEADS [QRS DEFLECTION < 1.0 mV IN CHEST LEADS] NONSPECIFIC T-WAVE ABNORMALITY ABNORMAL RHYTHM ECG UNCONFIRMED REPORT Electronically signed by : Joe Sparks, 02/21/2025 15:26:10
--- OUTSIDE RECORDS SUMMARY | 2025-02-21 11:01 | XMS_ITS | Encounter Summary ---
[facility] Address [address] [place] [address] Care Team Providers Care Die Fitter Name Role Phone Mamadou Singletary PA-C Primary Care Provider Encounter Details Date Type Department Care Team (Late st Contact Info) Description 12/29/2024 Results Follow-Up [facility] ENDOCRINOLOG[facility] [address] Mamadou Singletary PA-C [address] [place] [address] Social History Tobacco Use Types Packs/Day [...] Office Visit [facility] ENDOCRINOLOGY [address] [address] Mamadou Singletary PA-C [address] [address] documented as of this encounter Visit Diagnoses Not on filedocumented in this encounter Care Teams Die Fitter Relationship Specialty Start Date End Date Mamadou Singletary PA-C [address] [place] [address] PCP - General Physician Lung Splitter 01/18/25 documented as of this encounter
--- OUTSIDE RECORDS SUMMARY | 2025-02-21 11:01 | XMS_ITS | Encounter Summary ---
Author Organization [facility] Address [address] [place] [address] Care Team Providers Care Pyrometer Mechanic Name Role Phone Mamadou Singletary PA-C Primary Care Provider [phone] Encounter Details Date Type Department Care Team [...] Description 03/03/2025 2:15 PM EDT Office Visit [facility] ENDOCRINOLOGY [address] [phone] Mamadou Singletary PA-C [address] [employer] [address] [address] documented as of this encounter Visit Diagnoses Not on filedocumented in this encounter Care Teams Pyrometer Mechanic Relationship Specialty Start Date End Date Mamadou Singletary PA-C [address] [facility] [address] [place] [address] PCP - General Physician Corporate Real Estate Specialist 01/18/25 documented as of this encounter
--- OUTSIDE RECORDS SUMMARY | 2025-02-21 11:01 | XMS_ITS | Clinical Summary ---
Author Organization [facility] Address [address] [place] [address] Care Team Providers Care Rivet Driver Name Role Phone Pcp, No Primary Care Provider Unavailabl e Encounters Date Type Department Care Team Description 01/21/2025 10:55 AM EDT Ancillary Procedure [address] [facility] [address] [place] [address] [phone] Chest pain from Last 3 Months Social [...] Screening 1945 [facility]-Medicare Annual Wellness (AWV) 1945 [facility]-/Child/Adol SDOH Screenings 1946 [facility]- SDOH Screenings 01/29/1964 [facility]-Adult SDOH Screenings 01/29/1964 [facility]-DTaP,Tdap,and Td Vaccine s (1 - Tdap) 1965 [facility]-Pneumococcal Vaccine: 50 + Years (1 of 1 - PCV) 01/29/1996 [facility]-Zoster Vaccines (1 of 2) 01/29/1996 [facility]-RSV Vaccine: 60+ Years o r (1 - 1-dose 75+ series) 2021 [id number] Vaccine (1 - 20 24-25 season) 2025 [facility]-Influenza Vaccine (#1) 2025 HPV Vaccines Aged [...] Data Image Acquisition: Images were acquired at [facility] in [place], and interpreted at [facility]. A 128-slice MDCT scanner (Sinimanesa View) was used for data acquisition. A [...] was reviewed interactively on an advanced workstation ([employer]) capable of 2 and 3 dimensional displays [...] Data Image Acquisition: Images were acquired at [facility] in [place], andinterpreted at [facility]. A 128-slice MDCT scanner (Om[employer]y) was used for data acquisition. A non-contrast [...] Data wasreviewed interactively on an advanced workstation ([employer]) capable of 2and 3 dimensional displays in [...] MD on 01/21/2025 2:38 PM Arielle Lee TECHNICAL ACCOUNT EXECUTIVE IMG CT PROCEDURES Final Resu lt from Last 3 Months Insurance MEDICARE [employer] Care Teams Rivet Driver Relationship Specialty Start Date End Date Pcp, Natalia [address] [place] [address] PCP - General Family Medicine 04/17/23
--- OUTSIDE RECORDS SUMMARY | 2025-02-21 11:01 | XMS_ITS | Clinical Summary ---
Author Organization [facility] Address [address] [place] [address] Care Team Providers Care Pest Control Worker Name Role Phone Mamadou Singletary PA-C Primary [...] available for review, despite reviewing records from [facility] and [facility] Most likely, well-controlled on methimazole, but patient [...] Type Department Care Team Description 02/11/2025 Telephone [facility] END[facility]CRINOLOGY [address] [facility] [address] [place] [address] Mamadou Singletary PA-C 01/31/2025 Results Follow-Up [facility] ENDOCRINOLOGY [address] [place] [address] Mamadou Singletary PA-C 01/18/2025 1:00 PM EDT - 01/18/2025 11:59 PM EDT Hospital Encounter [facility] NUCLEAR MEDICINE [address] [place] [phone] Mamadou Singletary PA-C Multinodular goiter; Hyperthyroidism Discharge Disposition: Home or Self Care 01/18/2025 Travel 01/11/2025 Telephone [facility] ENDOCRINOLOGY 3084 [facility] 100 [place] [address] Mamadou Singletary PA-C 01/03/2025 Telephone [facility] ENDOCRINOLOGY 3084 [facility] 100 [place] [address] Mamadou Singletary PA-C 12/29/2024 Results Follow-Up [facility] ENDOCRINOLOGY [address] [address] Mamadou Singletary PA-C 12/28/2024 1:00 PM EDT Office Visit [facility] ENDOCRINOLOGY [address] [address] Mamadou Singletary PA-C Hyperthyroidism (Primary [...] Description 03/03/2025 2:15 PM EDT Office Visit [facility] ENDOCRINOLOGY [address] [phone] EdMamadou shah PA-C [address] [place] [address] Health Maintenance Due Date Last Done Comments [...] Procedure Name Priority Date/Time Associated Diagnosis Comments SCANNED - LABS 02/08/2025 NM THERAPY HYPERTHYROID INITIAL Routine 01/18/2025 2:33 PM EDT Multinodular goiter Hyperthyroidism THYROID STIMULATING IMMUNOGLOBULIN Routine 12/28/2024 1:52 PM EDT Hyperthyroidism T3, FREE Routine 12/28/2024 1:52 PM EDT Hyperthyroidism T4, FREE Routine 12/28/2024 1:52 PM EDT Hyperthyroidism TSH Routine 12/28/2024 1:52 PM EDT Hyperthyroidism from Last 3 Months Results * LABS SCANNED (02/08/2025) us Blaise Vázquez MD LAB BLOOD ORDERABLES Final Result * NM Therapy Hyperthyroid Initial (01/18/2025 2:33 PM EDT) Anatomical Region Laterality Modality Head and Neck Nuclear Medicine 01/30/2025 8:37 AM EDT Impressions 01/30/2025 8:39 AM EDT Right I-131 thyroid therapy without complication. Electronically Signed: Thomas Gonzalez MD 01/30/2025 8:39 AM EDT Workstation ID: [id number] Narrative 01/30/2025 8:39 AM EDT DATE OF [...] MD 01/30/2025 8:39 AM EDT Workstation ID: [id number] Mamadou Singletary PA-C IM NM ORDERABLES Final Res ult * Thyroid Stimulating Immunoglobulin (12/28/2024 1:52 PM EDT) Thyroid Stimulating Immunoglobulin <0.10 0.00 - 0.55 IU/L 01/02/2025 4:09 PM EDT [facility] Blood Structure of left upper limb / Unknown Venipuncture / Unknown 12/28/2024 1:52 PM EDT 12/28/2024 1:53 PM EDT Narrative [facility] - 01/02/2025 4:09 PM EDT Performed at: [address] [place], [place] [id number] Farm Consultant: Eder Mauricio MD, Phone: [phone] Gerrya Ednacot PA-C LAB BLOOD ORDERABLES Final Result Performing Organization Address City/[facility]/ZIP Co de Phone Number [facility] [address] [place] [address], * T3, Free (12/28/2024 1:52 PM EDT) Pathologist [facility] T3, Free 4.13 2.00 - 4.40 pg/mL 12/29/2024 12:47 AM EDT [facility] Blood Venipuncture / Unknown 12/28/2024 1:52 PM EDT 12/28/2024 1:53 PM EDT Gerrya Ednacot PA-C LAB BLOOD ORDERABLES Final Result Performing Organization Address [facility] Co de Phone Number [facility]
[address] [place] [address], * (ABNORMAL) TSH (12/28/2024 1:52 PM EDT) [facility] TSH 0.017(L) 0.270 - 4.200 uIU/mL 12/29/2024 12:47 AM EDT [facility] Blood Venipuncture / Unknown 12/28/2024 1:52 PM EDT 12/28/2024 1:53 PM EDT Mamadou Ednacot PA-C LAB BLOOD ORDERABLES Final Result Performing Organization Address [facility]/ZIP Co de Phone Number [facility]
[address] [place] [address], * T4, Free (12/28/2024 1:52 PM EDT) Pathologist [facility] Free T4 1.32 0.92 - 1.68 ng/dL 12/29/2024 12:47 AM EDT [facility] Blood Venipuncture / Unknown 12/28/2024 1:52 PM EDT 12/28/2024 1:53 PM EDT Mamadou Singletary PA-C LAB BLOOD ORDERABLES Final Result [facility]
[address] [place] [address], from Last 3 Months Insurance MEDICARE A & [employer] Care Teams Pest Control Worker Relationship Specialty Start Date End Date Mamadou Singletary PA-C [address] [place] [address] [address] PCP - General Physician Sports Book Writer 01/18/25
--- OUTSIDE RECORDS SUMMARY | 2025-02-21 11:01 | XMS_ITS | Encounter Summary ---
[facility] Address [address] [place] [address] Care Team Providers Care Patient Care Specialist Name Role Phone Mamadou Singletary PA-C Primary Care Provider Encounter Details Date Type Department Care Team (Late st Contact Info) Description 02/11/2025 Telephone [facility] [address] [facility] [address] [place] [address] Mamadou Singletary PA-C [address] [facility] [address] [place] [address] Social History Tobacco Use Types Packs/Day Years [...] Telephone Encounter - April Gonzalez MA - 02/18/2025 1:43 PM EDT ATTEMPTED TO CALL PATIENT NO ANSWER, NO VM * Telephone Encounter - April Gonzalez MA - 02/17/2025 2:12 PM EDT Attempted to call patient. No answer, no vm. * Telephone Encounter - April Gonzalez MA [...] Description 03/03/2025 2:15 PM EDT Office Visit [facility] ENDOCRINOLOGY [address] [phone] Mamadou Singletary PA-C [address] [address] documented as of this encounter Visit Diagnoses Not on filedocumented in this encounter Care Teams Patient Care Specialist Relationship Specialty Start Date End Date Mamadou Singletary PA-C [address] [address] PCP - General Physician Utilization Management Rn 01/18/25 documented as of this encounter
--- OUTSIDE RECORDS SUMMARY | 2025-02-21 11:01 | XMS_ITS | Encounter Summary ---
[facility] Address [address] [place] [address] Care Team Providers Care Leveler Helper Name Role Phone Mamadou Singletary PA-C Primary Care Provider [phone] Encounter Details Date Type Department Care Team (Late st Contact Info) Description 01/31/2025 Results Follow-Up [facility] END[facility]CRINOLOG[facility] [phone] Mamadou Singletary PA-C [address] [place] [address] Social History Tobacco Use Types Packs/Day [...] 03/03/2025 2:15 PM EDT Office Visit [facility] [facility] [address] [place] [phone] Mamadou Singletary PA-C 1774 [facility] [facility] [address] [place] [address] documented as of this encounter Visit Diagnoses Not on filedocumented in this encounter Care Teams Leveler Helper Relationship Specialty Start Date End Date Mamadou Singletary PA-C 1774 [facility] [address] [place] [address] PCP - General Physician Metalizing Machine Operator Automatic 01/18/25 documented as of this encounter
--- OUTSIDE RECORDS SUMMARY | 2025-02-21 11:01 | XMS_ITS | Encounter Summary ---
Author Organization [facility] Address [address] [place] [address] Care Team Providers Care Fruit Packer Face And Fill Name Role Phone Ernesto Hernandez MD Primary Care Provider [phone] Encounter Details Date Type Department Care Team [...] Description 03/03/2025 2:15 PM EDT Office Visit [facility] END[facility]OLOG[facility] [address] [phone] Mamadou Singletary PA-C [address] [facility] [address] [place] [address] documented as of this encounter Visit Diagnoses Not on filedocumented in this encounter Care Teams Fruit Packer Face And Fill Relationship Specialty Start Date End Date Ernesto Hernandez MD [address] [facility] [address] [place] [address] PCP - General Internal Medicine 12/28/24 01/17/25 documented as of this encounter
--- OUTSIDE RECORDS SUMMARY | 2025-02-21 11:01 | XMS_ITS | Clinical Summary ---
Author Organization [facility] Address [address] [place] [address] Care Team Providers Care Fiberglass Roller Name Role Phone None, None Primary Care [...] EDT) Cholesterol 228(H) 0 - 199 mg/dL [facility] Comment: TOTAL CHOLESTEROL INTERPRETATION: Less than 200 mg/dL Desireable 200-239 mg/dL Borderline Greater or Equal to 240 mg/dL High LDL Calculated 158(H) 0 - 100 mg/dL [facility] Comment: LDL CHOLESTEROL INTERPRETATION: Less than 100 mg/dL Optimal 100-129 mg/dL Near optimal/above optimal 130-159 mg/dL Borderline High 160-189 mg/dL High Greater or Equal to 190 mg/dL Very High HDL 43 40 - 180 mg/dL [facility] Comment: HDL CHOLESTEROL INTERPRETATION: Less than 40 mg/dL Low Greater than 60 mg/dL Desirable Triglycerides 136 0 - 150 mg/dL [facility] Comment: TOTAL TRIGLYCERIDE INTERPRETATION: Less than 150 mg/dL Normal 150-199 mg/dL Borderline HIgh 200-499 mg/dL High Greater or Equal to 500 mg/dL Very High Plasma (Plasma) 02/05/2012 1 1:30 AM EDT 02/05/2012 1:59 PM EDT Narrative [facility] - 02/05/2012 2:56 PM EDT Has the patient fasted?->Yes us Jude Segundo MD CHEMISTRY ORDERABLES Final Res ult [facility] [address] from Last 3 Months or Most Recently Relevant to Health Maintenance Insurance MEDICARE MEDICARE Care Teams Fiberglass Roller Relationship Specialty Start Date End Date None, None [address] [place] [address] PCP - General 04/23/19
--- OUTSIDE RECORDS SUMMARY | 2025-02-21 11:01 | XMS_ITS | Encounter Summary ---
Author Organization [facility] Address [address] [place] [address] Care Team Providers Care Manager Company Name Role Phone Mamadou Singletary PA-C Primary Care Provider [phone] Encounter Details Date Type Department Care Team (Late st Contact Info) Description 01/11/2025 Telephone [facility] [address] [facility] [address] [place] [address] Mamadou Singletary PA-C [address] [facility] [address] [place] [address] Social History Tobacco Use Types Packs/Day Years [...] PATIENT RETURNED OUR CALL. PHONE NUMBER IS [phone] * Telephone Encounter - Rohini Dejesus - [...] Can she get a call back to [facility] her, juan pablo documented in this encounter Plan of Treatment Upcoming Encounters Date Type Department Care Team (Late st Contact Info) Description 03/03/2025 2:15 PM EDT Office Visit [facility] ENDOCR[facility] [address] [phone] Mamadou Singletary PA-C [address] [address] documented as of this encounter Visit Diagnoses Not on filedocumented in this encounter Care Teams Manager Company Relationship Specialty Start Date End Date Mamadou Singletary PA-C [address] [address] PCP - General Physician Cops 01/18/25 documented as of this encounter
--- OUTSIDE RECORDS SUMMARY | 2025-02-21 11:01 | XMS_ITS | Encounter Summary ---
Author Organization [facility] Address [address] [place] [address] Care Team Providers Care Flooring Sales Manager Name Role Phone Ernesto Hernandez MD Primary Care Provider [phone] Encounter Details Date Type Department Care Team (Late st Contact Info) Description 01/03/2025 Telephone [facility] [address] [facility] [address] [place] [address] Sonia Singletary PA-C 17[address] [facility] [address] [place] [address] Social History Tobacco Use Types Packs/Day Years [...] SEE WHAT SONIA SUGGESTS. PHONE NUMBER IS [phone] documented in this encounter Plan of Treatment Upcoming Encounters Date Type Department Care Team (Late st Contact Info) Description 03/03/2025 2:15 PM EDT Office Visit [facility] END[facility]CR[facility] [address] [phone] Sonia Singletary PA-C [address] [address] documented as of this encounter Visit Diagnoses Diagnosis Hyperthyroidism Thyrotoxicosis without mention of goiter or other cause, without mention of thyrotoxic crisis or storm documented in this encounter Care Teams Flooring Sales Manager Relationship Specialty Start Date End Date Ernesto Hernandez MD [address] [facility] [address] [address] PCP - General Internal Medicine 12/28/24 01/17/25 documented as of this encounter
--- OUTSIDE RECORDS SUMMARY | 2025-02-21 11:01 | XMS_ITS | Clinical Summary ---
Author Organization [facility] Address [address] [place] [address] Care Team Providers Care Real Estate Agency Principal Name Role Phone Carolynn Pelletier MD Primary Care Provider [phone] Source Comments This information has been disclosed [...] therelease of HIV test results or diagnoses. [id number] All[facility] Active Allergy Reactions Criticality Noted [...] - Td or Tdap) 06/09/2027 06/09/2017 Insurance [employer] P[employer] MEDICARE Care Teams Real Estate Agency Principal Relationship Specialty Start Date End Date Carolynn Pelletier MD [address] [place] [address] [address] [place] [address] PCP - General Family Medicine 12/31/23
--- NOTE | 2025-02-21 11:14 | XR_ITS ---
FINAL REPORT CLINICAL HISTORY: chest pain Shortness of breath COMPARISON: None FINDINGS: CHEST 2 VIEWS No acute pulmonary density is evident. There is no evidence of effusion or other pleural disease. The mediastinum has a normal appearance. The cardiac silhouette is unremarkable. IMPRESSION: Unremarkable chest exam. Reviewed, Interpreted and Dictated by Sumanth Sandy MD Transcribed by Lety Diaz Authenticated and [facility]
[2025-02-21 11:21] LABS: Hematocrit 43.1 % (37.0-47.0); Hemoglobin 14.4 g/dL (12.2-16.2); Immature Granulocytes % 0.5 %; Mean Corpuscular HGB Conc 33.4 g/dL (31.8-35.4); Mean Corpuscular Hemoglobin 29.6 pg (27.0-31.2); Mean Corpuscular Volume 88.5 fl (81-99); Nucleated Red Blood Cells % 0 %; Platelet Count 191 K/mm3 (142-424); Red Blood Count 4.87 M/mm3 (4.20-5.40); Red Cell Distribution Width-SD 42.3 fL; White Blood Count 5.8 K/mm3 (4.8-10.8)
[2025-02-21 11:26] LABS: Alanine Aminotransferase 29 U/L (12-78); Albumin Level 4.4 g/dl (3.5-5.0); Albumin/Globulin Ratio 1.5 (1.1-1.8); Alkaline Phosphatase 102 U/L (38-126); Anion Gap 12.7 mEq/L (5-15); Aspartate Amino Transferase 34 U/L (14-36); Bilirubin,Total 0.8 mg/dl (0.2-1.3); Blood Urea Nitrogen 18 mg/dl (7-17); Calcium 10.3 mg/dl (8.4-10.2); Carbon Dioxide 26 mmol/L (22.0-30.0); Chloride 105 mmol/L (98-107); Creatinine Clearance Estimated 68 mL/min (50-200); Creatinine,Serum 0.60 mg/dl (0.52-1.04); Estimated Glomerular Filt Rate 96 ml/min (>60); GFR (African American) 117 ML/MIN (>60); Globulin 2.9 g/dL (1.3-3.2); Glucose 148 mg/dl (74-100); Potassium 4.7 mmoL/L (3.5-5.1); Sodium 139 mmol/L (136-145); Total Protein,Serum 7.3 g/dl (6.3-8.2)
--- NOTE | 2025-02-21 11:41 | ED_ITS ---
Discharge Plan Disposition Patient Disposition: Admitted Prescriptions Prescriptions: No Action magnesium 250 mg tablet 250 mg PO DAILY ascorbic acid (vitamin C) 500 mg tablet 500 mg PO DAILY cholecalciferol (vitamin D3) 1,250 mcg (50,000 unit) capsule 1,250 mcg PO WEEKLY mecobalamin (vitamin B12) 500 mcg tablet,chewable PO cinnamon bark [Cinnamon] 500 mg capsule 500 mg PO DAILY berberine chloride 500 mg capsule PO PreserVision AREDS 4,296 mcg-226 mg-90 mg capsule 1 cap PO BID aspirin [Adult Low Dose Aspirin] 81 mg tablet,delayed release (DR/EC) 81 mg PO DAILY Qty: 30 2RF Repatha SureClick 140 mg/mL pen injector 140 mg SQ Q2W Qty: 2 2RF irbesartan 75 mg tablet 75 mg PO DAILY 30 Days Qty: 30 3RF (DME) blood-glucose meter [True Metrix Air Glucose Meter] Misc See Rx Instructions .ROUTE .MEDSUPPLY Qty: 1 0RF Rx Instructions: As directed (DME) lancets [TRUEplus Lancets] 33 gauge misc See Rx Instructions .ROUTE .MEDSUPPLY Qty: 100 0RF Rx Instructions: As directed (DME) True Metrix Glucose Test Strip Strip See Rx Instructions .ROUTE .MEDSUPPLY Qty: 10 0RF Rx Instructions: As directed metoprolol tartrate 25 mg Tablet 25 mg PO DAILY clopidogrel [Plavix] 75 mg Tablet 75 mg PO DAILY 30 Days Qty: 30 3RF Referrals Follow up/Referrals: Jerica Ernandez APRN [Primary Care Provider, Medical] - See instructions Clinical Impressions Clinical Impression: Atrial fibrillation with rapid ventricular response, Hyperthyroidism Print Language Print Language: Persian Discharge ED Provider: Bert Sparks General Adult HPI General Chief complaint: Chest Pain Stated complaint: CP Time Seen by Provider: 02/21/25 11:12 Mode of Arrival: Ambulatory Source of Information: Patient Description of Symptoms (Recalled from ER Triage Doc. by RN): pt presents to ED c/o chest pain that started at 0000. pt states she had stents placed approx 2 weeks ago. pt reports she is currently on Plavix and Aspirin. pt reports hx of Afib. pt states pain radiates to neck. History of Present Illness HPI narrative: Patient is a 80-year-old female with a known history of paroxysmal intermittent atrial fibrillation dating back many years on antiplatelets specifically Plavix but not on any anticoagulation currently presents today with recurrence of her A-fib and palpitations. States she knows that this occurred last night. Was recently on Eliquis but her social service director Dr. Calhoun has discontinued that and had her continue on with the Plavix. Unclear from historical standpoint why that happened she had no bleeding abnormalities. Patient denies any changes in medications otherwise vomiting diarrhea etc. She does states she also has a known history of thyroid dysfunction and Dr. Summers has recently referred her to a motorcycle subassembly repairer. Related Data Home Medications ?Medication ?Instructions ?Recorded ?Confirmed ascorbic acid (vitamin C) 500 mg 500 mg PO DAILY 08/1002/15/25 tablet berberine chloride 500 mg capsule mg PO 08/10/2402/15 cholecalciferol (vitamin D3) 1,250 1,250 mcg PO WEEKLY 08/10/24 02/15/25 mcg (50,000 unit) capsule cinnamon bark 500 mg capsule 500 mg PO DAILY 08/10/24 02/15/25 (Cinnamon) magnesium 250 mg tablet 250 mg PO DAILY 08/10/2403/03 mecobalamin (vitamin B12) 500 mcg mcg PO 08/10/2403/03 chewable tablet vitamins A,C,X-yqlx-orgaee 4,296 1 cap PO BID 10/01/24 02/15/25 mcg-226 mg-90 mg capsule (PreserVision AREDS) metoprolol tartrate 25 mg tablet 25 mg PO DAILY 02/15/25 Previous Rx's ?Medication ?Instructions ?Recorded blood-glucose meter (True Metrix #1 ea 03/16/24 Air Glucose Meter) blood sugar diagnostic (True #10 ea 04/08/24 Metrix Glucose Test Strip) lancets 33 gauge (TRUEplus Lancets) #100 ea 04/08/24 clopidogrel 75 mg tablet (Plavix) 75 mg PO DAILY 30 da ys #30 tabs 02/03/25 aspirin 81 mg tablet,delayed 81 mg PO DAILY #30 tabs 0 02/15/25 release (Adult Low Dose Aspirin) evolocumab 140 mg/mL subcutaneous 140 mg SQ Q2W #2 mL 02/15/25 pen injector (Chyna Caraballo) irbesartan 75 mg tablet 75 mg PO DAILY 30 days #30 t abs 02/15/25 Allergies Allergy/AdvReac Type Severity Reaction Status Date / Time ciprofloxacin (From Cipro) Allergy Mild Rash Verified 02/15/25 14:16 latex Allergy Mild Rash Verified 02/15/25 14:16 metformin Allergy Mild Rash Verified 02/15/25 14:16 morphine Allergy Mild Rash Verified 02/15/25 14:16 rosuvastatin Allergy Mild Rash Verified 02/15/25 14:16 Sulfa (Sulfonamide Allergy Mild Rash Verified 02/15/25 14:16 Antibiotics) [facility] Disclaimer: The information contained in this section may have been updated after the patient was seen, as this information can be updated by other users. 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 Surgical History Hx of abdominal surgery Hx of hysterectomy Family History Other Coronary artery disease Hyperlipidemia Hypertension Substance abuse Thyroid disorder Social History Smoking Status: Never smoker alcohol intake: current alcohol intake frequency: holidays/special occasions only current occupational status: retired Travel in the last 8 weeks?: Inside the [place] Have you lived/traveled outside US in past 30 days?: No Contact w/someone who lives/traveled outside US past 30 days?: No Exposure to someone with infectious disease in past 14 days?: No Do you have a fever (greater than 100.4 F or 38 C)?: No Have you tested positive for COVID-19?: No Exposed to someone with COVID-19 in past 14 days?: No Do you have a sore throat?: No Do you have a cough?: No Do you have any weakness?: No Do you have any diarrhea?: No Are you experiencing any unusual bleeding?: No Do you have any muscle aches/pain?: No Do you have any abdominal pain?: No Are you experiencing loss of taste or smell?: No Other Medical History Have you received the Flu Vaccine for this season: No Have you received the Pneumonia Vaccine: No ROS Obtained: Yes All systems reviewed & no additional complaints except as documented Physical Exam General General appearance: alert Respiratory Respiratory exam: Present normal lung sounds bilaterally Cardiovascular Cardiovascular exam: Present regular rate Neurological Exam Neurological exam: Present alert and oriented X3 Medical Decision Making Medical Records Screening: Per USPSTF and CDC recommendations, given the prevalence of disease in our region, it is our hospital?s policy to screen for HIV and viral Hepatitis for all patients aged 18 and over and those with ongoing risk factors. Jayy Inquiry Pt receiving controlled substance: No Vital Signs: 02/21/25 11:03 02/21/25 11:12 02/21/25 12:43 Temperature 98.5 F Temperature Source Oral Pulse Rate 130 H 130 H Pulse Rate [Right Radial] 120 H Respiratory Rate 20 18 18 Blood Pressure 96/76 L 107/84 L Blood Pressure [Right Arm] 168/96 H Blood Pressure Mean [Right Arm] 120 Blood Pressure Source Automatic Cuff Automatic Cuff Blood Pressure Source [Right Arm] Automatic Cuff Blood Pressure Position Sitting Sitting Blood Pressure Position [Right Arm] Sitting 02 Sat by Pulse Oximetry 97 97 95 Oxygen Delivery Method Room Air Room Air Room Air 02/21/25 12:56 Temperature Temperature Source Pulse Rate 120 H Pulse Rate [Right Radial] Respiratory Rate 18 Blood Pressure 113/84 Blood Pressure [Right Arm] Blood Pressure Mean [Right Arm] Blood Pressure Source Automatic Cuff Blood Pressure Source [Right Arm] Blood Pressure Position Sitting Blood Pressure Position [Right Arm] 02 Sat by Pulse Oximetry 96 Oxygen Delivery Method Room Air Lab Data Lab results reviewed: Yes I reviewed the patient's lab results. Lab Results 02/21/25 11:08: WBC 5.8, RBC 4.87, Hgb 14.4, Hct 43.1, MCV 88.5, MCH 29.6, MCHC 33.4, RDW 13.1, Plt Count 191, MPV 9.5, Neut % (Auto) 60.5, Lymph % (Auto) 26.4, [place] % (Auto) 10.4 H, Eos % (Auto) 1.7, Baso % (Auto) 0.5, Neut # (Auto) 3.5, Lymph # (Auto) 1.5, [place] # (Auto) 0.6, Eos # (Auto) 0.1, Baso # (Auto) 0.0, Sodium 139, Potassium 4.7, Chloride 105, Carbon Dioxide 26, Anion Gap 12.7, BUN 18 H, Creatinine 0.60, Estimated Creat Clear 68, Estimated GFR 96, Est GFR ( Amer) 117, Glucose 148 H, Calcium 10.3 H, Magnesium 1.5 L, Total Bilirubin 0.8, AST 34, ALT 29, Alkaline Phosphatase 102, Troponin I < 0.01, N T-Pro-B Natriuret Pep 1300 H, Total Protein 7.3, Albumin 4.4, Globulin 2.9, Albumin/Globulin Ratio 1.5, TSH < 0.02 L, Free T4 2.90 H, HCV Ab MODE w/Rflx PCR Qn Negative, HIV Ag/Ab Combo Qual Negative 02/21/25 11:08 02/21/25 11:08 Orders (Tests/Meds): ED MEDICATIONS Generic Name Dose Route Start Last Admin Trade Name Freq PRN Reason Stop Dose Admin Diltiazem HCl 20 mg 02/21/25 13:16 Diltiazem 25mg/5ml Vial IV 02/21/25 13:17 ONCE ONE Diltiazem HCl 100 mg/ Sodium 100 mls @ 5 mls/hr 02/21/25 13:45 Chloride IV 03/23/25 13:44 .Q20H POONAM Protocol 5 MG/HR Sodium Chloride 10 ml 02/21/25 11:14 Sodium Chloride 0.9% 10ml Flush Syringe IV 03/23/25 11:13 NEEDED PRN Maintain IV Site Discontinued Medications Generic Name Dose Route Start Last Admin Trade Name Freq PRN Reason Stop Dose Admin Metoprolol Tartrate 5 mg 02/21/25 11:37 02/21/25 11:45 Metoprolol Tartrate 5mg/5ml Vial IV 02/21/25 11:38 5 mg ONCE ONE Administration Metoprolol Tartrate 5 mg 02/21/25 12:38 02/21/25 12:39 Metoprolol Tartrate 5mg/5ml Vial IV 02/21/25 12:39 5 mg ONCE ONE Administration Metoprolol Tartrate 5 mg 02/21/25 12:43 02/21/25 12:52 Metoprolol Tartrate 5mg/5ml Vial IV 02/21/25 12:44 5 mg ONCE ONE Administration ORDERS Category Date Time Status Cardiology Consult [Consult to Cardiology] [CONS] Cons 02/21/25 13:22 Active Routine XR chest 2V Stat Exams 02/21/25 11:14 Completed BNP [NT Pro Brain Natriuretic Pep.] Stat Lab 02/21/25 11:08 Completed Complete Blood Count Auto Diff Stat Lab 02/21/25 11:08 Completed Comprehensive Metabolic Panel Stat Lab 02/21/25 11:08 Completed Free T4 (Free Thyroxine) Stat Lab 02/21/25 11:08 Completed HIV Combo Stat Lab 02/21/25 11:08 Completed Hepatitis C Ab Qual. W/ RFX Stat Lab 02/21/25 11:08 Completed Magnesium Stat Lab 02/21/25 11:08 Completed TSH [Thyroid Stimulating Hormone] Stat Lab 02/21/25 11:08 Completed Troponin I Q3H Lab 02/21/25 14:15 Ordered Troponin I Q3H Lab 02/21/25 17:15 Ordered Troponin I Stat Lab 02/21/25 11:08 Completed Medical Decision Narrative: EKG performed which I personally interpreted shows a ventricular rate of 132 A- fib with RVR no acute ischemic changes noted there is an indeterminate axis no other conduction abnormalities or ischemia noted Patient showed up in A-fib RVR known paroxysmal A-fib is not on Eliquis but is on Plavix. Will not cardiovert her given the fact that she is not truly on anticoagulation. Rate control will be my goal in the emergency department today IV metoprolol has been administered. Also will check her TSH and free T4. Thyroid dysfunction certainly could be the cause of all this as well. She has no other signs or symptoms of myxedematous coma or thyroid storm.. On chart review with cardiology it states that she is not on Eliquis because of its expense. Reassessment 1:25 PM patient remains in A-fib RVR despite maximal IV doses of metoprolol we will start her on diltiazem recently reviewed her imaging and show her most recent ejection fraction was 59%. She tolerated this fine. Patient remains hemodynamically stable otherwise perfusing okay. I spoke with hospital medicine who agreed to admit her for further evaluation and management patient agreeable to this plan. Critical Care Critical Care Time Critical Care Time: Yes Attestation: On 02/21/25, the high probability of a clinically significant, sudden or life threatening deterioration of the following system(s) required my full and direct attention, intervention and personal management. The time I documented below is in addition to time spent performing reported procedures but includes the following listed in this critical care notation. Total Time Total Critical Care Time: 35
[2025-02-21] MEDS: METOPROLOL TARTRATE 5MG/5ML VIAL 5 MG IV ×3 (11:45→12:52)
[2025-02-21 11:58] LABS: Magnesium 1.5 mg/dl (1.6-2.3); Troponin I < 0.01 ng/ml (0.00-0.034)
[2025-02-21 12:09] LABS: NT Pro Brain Natriuretic Pep. 1300 pg/mL (0-450)
[2025-02-21 12:15] LABS: Free T4 (Free Thyroxine) 2.90 ng/dl (0.78-2.19)
[2025-02-21 12:30] LABS: Thyroid Stimulating Hormone < 0.02 uIU/mL (0.465-4.68)
[2025-02-21 12:49] LABS: Hepatitis C Ab Qual. W/ RFX NEGATIVE (Negative)
--- NOTE | 2025-02-21 13:21 | PC.NURSE ---
house notified of admission.
--- NOTE | 2025-02-21 13:43 | HMH.PHAINT1 ---
Pharmacy Intervention Comments: MEDICATION RECONCILIATION COMPLETED ON PATIENT USING EXTERNAL FILL HISTORY FROM PHARMACY AND LIST FROM CARDIOLOGY OFFICE. -DARLENE BELTRAN, CHERYLD
--- NOTE | 2025-02-21 13:57 | P.HP_ITS ---
<Statement entered by Jorden Vargas MD - 02/23/25 12:42> Agree with the plan as outlined by the EMPLOYEE BENEFITS SPECIALIST. History of Present Illness *Admission Date: 02/21/25 *Reason for visit:: fast heart rate *History of present illness: Ms. Rdoriguez is a 80-year-old female who presented to the emergency department today with increased heart rate and chest pain that started around midnight. She recently had a LHC and had 2 stents placed. Was started on Plavix and aspirin. She does have a known history of paroxysmal atrial fibrillation, hyperthyroidism, CAD, KATIE, type 2 diabetes, hypertension, and Ervin cell carcinoma. Patient was previously prescribed digoxin and Eliquis for her atrial fibrillation, but states she was taken off that by Dr. Summers, her coffee taster. She does endorse taking her prescribed DAPT therapy and blood pressure medications. The emergency department tried multiple doses of metoprolol IV but the patient did not convert, a diltiazem drip was started and patient converted to sinus bradycardia. Patient was also found to have a undetectable TSH, when this was discussed with the patient she states she has been following with [facility] where she has tried multiple medications for her hyperthyroidism as well as recent iodine therapy. [facility] Disclaimer: The information contained in this section may have been updated after the pat ient was seen, as this information can be updated by other users. Medical History (Updated 02/21/25 @ 13:19 by Bert Sparks MD) CAD (coronary artery disease) Angina pectoris Abnormal findings on diagnostic imaging of heart and coronary circulation Edema of hand Dizziness Chest pain Abnormal electrocardiogram [ECG] [EKG] Multiple thyroid nodules Thyromegaly Hx of thyroid cyst Hx of cataract Hypertension Ervin cell cancer Type 2 diabetes mellitus Surgical History Hx of abdominal surgery Hx of hysterectomy Family History Other Coronary artery disease Hyperlipidemia Hypertension Substance abuse Thyroid disorder Social History Smoking Status: Never smoker alcohol intake: current alcohol intake frequency: holidays/special occasions only current occupational status: retired and disabled Travel in the last 8 weeks?: Inside the [place] Other Medical History Have you received the Flu Vaccine for this season: No Have you received the Pneumonia Vaccine: No Review of Systems Constitutional Constitutional: Denies chills, Reports fatigue, Denies fever(s), Denies weakness, Denies weight gain and Denies weight loss *Cardiovascular Cardiovascular: Reports chest pain, Denies dyspnea, Denies leg edema, Reports palpitations and Reports rapid heart rate *Respiratory Respiratory: Denies cough, Denies dyspnea and Denies wheezing *Gastrointestinal Gastrointestinal: Denies abdominal pain, Denies heartburn, Denies loose stools and Denies vomiting *Genitourinary Genitourinary: Denies difficulty voiding and Denies dysuria *Musculoskeletal Musculoskeletal: Denies tingling *Neurologic Neurologic: Denies tingling, Denies tremor(s) and Denies weakness Endocrine Endocrine: Reports fatigue and Reports palpitations Allergic/Immunologic Allergic/Immunologic: Denies wheezing Meds Home Medications and Allergies Home Medications ?Medication ?Instructions ?Recorded ?Confirmed ?Type blood-glucose meter (True Metrix #1 ea 03/16/24 Rx Air Glucose Meter) blood sugar diagnostic (True #10 ea 04/08/24 02/15/25 Rx Metrix Glucose Test Strip) lancets 33 gauge (TRUEplus Lancets) #100 ea 04/08/24 0 02/15/25 Rx ascorbic acid (vitamin C) 500 mg 500 mg PO DAILY 08/1002/21/25 History tablet cholecalciferol (vitamin D3) 1,250 1,250 mcg PO WEEKLY 08/10/24 02/21/25 History mcg (50,000 unit) capsule cinnamon bark 500 mg capsule 500 mg PO DAILY 08/10/24 02/21/25 History (Cinnamon) magnesium 250 mg tablet 250 mg PO DAILY 08/10/24 History mecobalamin (vitamin B12) 500 mcg 500 mcg PO DAILY 10/0102/21/25 History chewable tablet vitamins A,C,S-ccuu-itcltc 4,296 1 cap PO BID 10/01/24 02/21/25 History mcg-226 mg-90 mg capsule (PreserVision AREDS) metoprolol tartrate 25 mg tablet 25 mg PO DAILY 02/21/25 History clopidogrel 75 mg tablet (Plavix) 75 mg PO DAILY 30 da ys #30 tabs 02/03/25 02/21/25 Rx aspirin 81 mg tablet,delayed 81 mg PO DAILY #30 tabs 0 02/15/25 02/21/25 Rx release (Adult Low Dose Aspirin) evolocumab 140 mg/mL subcutaneous 140 mg SQ Q2W #2 mL 02/15/25 02/21/25 Rx pen injector (Tavona NerisXanderick) irbesartan 75 mg tablet 75 mg PO DAILY 30 days #30 t abs 02/15/25 02/21/25 Rx New Prescriptions to Start Prescriptions: Allergies Allergy/AdvReac Type Severity Reaction Status Date / Time ciprofloxacin (From Cipro) Allergy Mild Rash Verified 02/15/25 14:16 latex Allergy Mild Rash Verified 02/15/25 14:16 metformin Allergy Mild Rash Verified 02/15/25 14:16 morphine Allergy Mild Rash Verified 02/15/25 14:16 rosuvastatin Allergy Mild Rash Verified 02/15/25 14:16 Sulfa (Sulfonamide Allergy Mild Rash Verified 02/15/25 14:16 Antibiotics) oxycodone Allergy Difficulty Verified 02/21/25 15:20 Breathing Waeocla-SIG-NgW Reductase Allergy Joint Pain Verified 02/21/25 15:20 Inhibitor Exam Data for Last 24 hours Vital signs and Labs for Last 24 Hours: Temp Pulse Resp BP Pulse Ox O2 Del Method 98.5 F 120 H 18 113/84 96 Room Air 02/21/25 11:03 02/21/25 12:56 02/21/25 12:56 02/21/25 12:56 02/21/25 12:56 02/21/25 12:56 Laboratory Results - last 24 hr 02/21/25 11:08: WBC 5.8, RBC 4.87, Hgb 14.4, Hct 43.1, MCV 88.5, MCH 29.6, MCHC 33.4, RDW 13.1, Plt Count 191, MPV 9.5, Neut % (Auto) 60.5, Lymph % (Auto) 26.4, [place] % (Auto) 10.4 H, Eos % (Auto) 1.7, Baso % (Auto) 0.5, Neut # (Auto) 3.5, Lymph # (Auto) 1.5, [place] # (Auto) 0.6, Eos # (Auto) 0.1, Baso # (Auto) 0.0, Sodium 139, Potassium 4.7, Chloride 105, Carbon Dioxide 26, Anion Gap 12.7, BUN 18 H, Creatinine 0.60, Estimated Creat Clear 68, Estimated GFR 96, Est GFR ( Amer) 117, Glucose 148 H, Calcium 10.3 H, Magnesium 1.5 L, Total Bilirubin 0.8, AST 34, ALT 29, Alkaline Phosphatase 102, Troponin I < 0.01, NT-Pro-B Natriuret Pep 1300 H, Total Protein 7.3, Albumin 4.4, Globulin 2.9, Albumin/Globulin Ratio 1.5, TSH < 0.02 L, Free T4 2.90 H, HCV Ab MODE w/Rflx PCR Qn Negative, HIV Ag/Ab Combo Qual Negative I & O for Last 24 hours: Intake & Output 02/18/25 02/19/25 02/20/25 02/21/25 23:59 23:59 23:59 23:59 Weight 94.347 kg Constitutional Constitutional: no acute distress, obese and cooperative *Routine HEENT Exam Head: Present normocephalic Eye: Present EOMI ENT: Present mucous membranes moist *Routine Neck Exam Neck: Present supple and full ROM; Absent thyromegaly or tenderness *Routine Respiratory Exam Respiratory: Present CTA bilaterally, normal respiratory effort, able to speak in complete sentences and symmetric chest movement; Absent wheezes or crackles *Routine Cardiovascular Exam Cardiovascular: Present Normal S1, Normal S2 and bradycardia; Absent murmur *Routine Abdominal Exam Abdominal: Present soft and normoactive bowel sounds; Absent tenderness or distended *Routine Rectal Exam Rectal:: deferred *Routine Genitalia Exam Genitalia:: deferred *Routine Extremities Exam Extremities: Present full ROM, pulses intact and normal capillary refill; Absent clubbing or edema *Routine Skin Exam Skin: Present intact, dry and pallor *Routine Neurological Exam Neurological: Present alert, oriented X3, vision grossly intact and normal speech Routine Psychiatric Exam Psychiatric: Present normal affect Assessment and Plan *Assessment and plan (1) Atrial fibrillation with rapid ventricular response: Status: Acute Category: Medical Code(s): I48.91 - Unspecified atrial fibrillation (2) CAD (coronary artery disease): Status: Acute Category: Medical Code(s): I25.10 - Atherosclerotic heart disease of [place] coronary artery without angina pectoris (3) Hyperthyroidism: Status: Acute Category: Medical Code(s): E05.90 - Thyrotoxicosis, unspecified without thyrotoxic crisis or storm Plan Ms. Rodriguez is a 80-year-old female who presented to the emergency department today with increased heart rate and chest pain that started around midnight. She recently had a LHC and had 2 stents placed. Was started on Plavix and aspirin. She does have a known history of paroxysmal atrial fibrillation, hyperthyroidism, CAD, KATIE, type 2 diabetes, hypertension, and Ervin cell carcinoma. Patient was previously prescribed digoxin and Eliquis for her atrial fibrillation, but states she was taken off that by Dr. Summers, her coffee taster. She does endorse taking her prescribed DAPT therapy and blood pressure medications. The emergency department tried multiple doses of metoprolol IV but the patient did not convert, a diltiazem bolus and diltiazem drip was started and patient converted to sinus bradycardia. Patient was also found to have a undetectable TSH, when this was discussed with the patient she states she has been following with [facility] where she has tried multiple medications for her hyperthyroidism, as well as recent iodine therapy. Additional lab work was remarkable for magnesium of 1.5, BNP of 1300, free T4 of 2.90. Hospital medicine was consulted for admission and further management of patient's A-fib with RVR, I agreed to accept the patient. Plan of care as follows: #A-fib with RVR #CAD ? Upon patient assessment she has converted to sinus bradycardia, heart rate in the 40s. Diltiazem drip discontinued. Continuous cardiac telemetry ordered. ? I personally reviewed the patient's chest x-ray which showed no atelectasis, pneumonia, effusion. ? Patient had cardiac cath on 02/03/2025 and received 2 SARAH. She was started on Plavix and aspirin at that time. She followed up with cardiology in the office on 02/15/2025. Per her note she states she was no longer taking the Eliquis due to cost. Her digoxin and atorvastatin were discontinued, irbesartan was decreased to 75 mcg daily, orders for Repatha injections due to intolerant of statins at that time. ? Cardiology consulted for recommendations. Echo 11/03/2024 showed LVEF of 55%. ? Continue irbesartan 75 mg daily, Plavix 75 mg daily, aspirin 81 mg daily. Lovenox 1 mg/kg ordered, 95 mg SQ twice daily. ? CBC, CMP, magnesium ordered for the a.m. #Hyperthyroidism ? Patient has TSH less than 0.02, free T4 2.90. Patient states she has a longstanding history with hyperthyroidism. She has taken multiple medications (methimazole and PTU) and has been intolerant. She has recently started radioactive iodine therapy treatments at [facility]. She is interested in seeing endocrinology at [facility], will consult. DNR Diabetic diet Ambulate as tolerated VTE?Lovenox 1 mg/kg
[2025-02-21 14:51] LABS: Troponin I 0.02 ng/ml (0.00-0.034)
--- NOTE | 2025-02-21 15:10 | ECG_ITS ---
APPROVED REPORT Exam: Resting ECG HR:45 bpm ECG Measurements Heart Rate 45 AXES DC 212 P 24 QRSd 74 QRS 9 QT 451 T -6 QTc 404 Conclusion SINUS BRADYCARDIA WITH MARKED SINUS ARRHYTHMIA WITH FIRST DEGREE AV BLOCK LOW QRS VOLTAGE IN PRECORDIAL LEADS [QRS DEFLECTION < 1.0 mV IN CHEST LEADS] SEPTAL MYOCARDIAL INFARCTION , PROBABLY OLD [40+ ms Q WAVE IN V1/V2] ABNORMAL ECG UNCONFIRMED REPORT Electronically signed by : Royal Cortez MD 02/22/2025 08:43:48
[2025-02-21] MEDS: MAGNESIUM SULFATE IN WATER 2 GM/50 ML PIGGYBACK IV (15:45)
--- NOTE | 2025-02-21 16:59 | PC.NURSE ---
Talked with Levon Massey from Cardiology, he recommends giving patient her digoxin dose of 0.125 mcg tonight and then starting tomorrow will start back daily on the digoxin. If patient goes back into afib and sustains with a high rate patient will have to go back on the diltizem drip.He will be up in tomorrow to see her.
--- NOTE | 2025-02-21 17:44 | PC.NURSE ---
patient arrived to the unit at 1434 by wheelchair.
--- NOTE | 2025-02-21 17:46 | PC.NURSE ---
Mirian Massey APRN came to see the patient at 1440. while talking with the patient, patient stopped talking and stated she was dizzy to give her a minute at that time patients heart rate dropped down into the low 30s. Patient was on a diltiazem drip that she came up on from the ER it was at 2.5mg/hr. Patient was lowered to 2.5 mg/hr just before coming up to the unit she was initally on 5mg/hr. When patient heart rate went into the low 30s the diltiazem was stopped. Patient had then converted from afib to sinus ashwin. An EKG was done to confirm patient had converted. Consult with cardiology was placed and also consult with endocrinology.
[2025-02-21] MEDS: DIGOXIN 0.125MG TABLET 125 MCG PO (18:08)
--- NOTE | 2025-02-21 18:13 | PC.NURSE ---
1436 patient does not want the cre swab done
[2025-02-21 18:53] LABS: Troponin I 0.01 ng/ml (0.00-0.034)
[2025-02-22] VITALS (21 sets, daily range): BP systolic 101–154; BP diastolic 48–107; PULSE 52–74; RESP 12–22; TEMP 36.4–36.6; O2SAT 91–97; BMI 33.7
[2025-02-22 05:41] LABS: Hematocrit 37.0 % (37.0-47.0); Immature Granulocytes % 0.2 %; Mean Corpuscular HGB Conc 32.7 g/dL (31.8-35.4); Mean Corpuscular Hemoglobin 29.3 pg (27.0-31.2); Mean Corpuscular Volume 89.6 fl (81-99); Nucleated Red Blood Cells % 0 %; Platelet Count 157 K/mm3 (142-424); Red Blood Count 4.13 M/mm3 (4.20-5.40); Red Cell Distribution Width-SD 42.9 fL; White Blood Count 4.9 K/mm3 (4.8-10.8)
[2025-02-22 05:54] LABS: Alanine Aminotransferase 24 U/L (12-78); Albumin Level 3.6 g/dl (3.5-5.0); Albumin/Globulin Ratio 1.5 (1.1-1.8); Alkaline Phosphatase 83 U/L (38-126); Anion Gap 7.1 mEq/L (5-15); Aspartate Amino Transferase 27 U/L (14-36); Bilirubin,Total 0.9 mg/dl (0.2-1.3); Blood Urea Nitrogen 20 mg/dl (7-17); Calcium 9.4 mg/dl (8.4-10.2); Carbon Dioxide 26 mmol/L (22.0-30.0); Chloride 107 mmol/L (98-107); Creatinine Clearance Estimated 69 mL/min (50-200); Creatinine,Serum 0.70 mg/dl (0.52-1.04); Estimated Glomerular Filt Rate 81 ml/min (>60); GFR (African American) 98 ML/MIN (>60); Globulin 2.4 g/dL (1.3-3.2); Glucose 108 mg/dl (74-100); Magnesium 1.7 mg/dl (1.6-2.3); Potassium 4.1 mmoL/L (3.5-5.1); Sodium 136 mmol/L (136-145); Total Protein,Serum 6.0 g/dl (6.3-8.2)
[2025-02-22 06:00] LABS: Hemoglobin 12.2 g/dL (12.2-16.2)
[2025-02-22] MEDS: ASPIRIN EC 81MG TABLET 81 MG PO (08:38)
[2025-02-22] MEDS: CLOPIDOGREL 75MG TAB 75 MG PO (08:38)
[2025-02-22] MEDS: DIGOXIN 0.125MG TABLET 125 MCG PO (08:40)
--- NOTE | 2025-02-22 09:02 | HMH.OTEV ---
OT Evaluation Rehab OT IP Evaluation Start: 02/22/25 08:00 Freq: ONCE Status: Active Protocol: Document 02/22/25 08:56 [facility]ANCH (Rec: 02/22/25 09:02 [facility] [id number]) Rehab OT IP Assessment Subjective History Pt oriented x 3 on arrival. Pt agreeable to engage in therapy evaluation; pt's daughter present and supportive. Pt admitted on 02/21/25 with A-fib and RVR. History and physical: Ms. Rodriguez is a 80-year-old female who presented to the emergency department today with increased heart rate and chest pain that started around midnight. She recently had a LHC and had 2 stents placed. Was started on Plavix and aspirin. She does have a known history of paroxysmal atrial fibrillation, hyperthyroidism, CAD, KATIE, type 2 diabetes, hypertension, and [place] cell carcinoma. Patient was previously prescribed digoxin and Eliquis for her atrial fibrillation, but states she was taken off that by Dr. Summers, her buffet attendant. She does endorse taking her prescribed DAPT therapy and blood pressure medications. The emergency department tried multiple doses of metoprolol IV but the patient did not convert, a diltiazem drip was started and patient converted to sinus bradycardia. Patient was also found to have a undetectable TSH, when this was discussed with the patient she states she has been following with [facility] where she has tried multiple medications for her hyperthyroidism as well as recent iodine therapy. Subjective Prior to being in the hospital, pt lived at home alone. Pt had a ramp to enter home and is able to stay on one floor level of the home even though she has a basement and second story. Pt claims she is independent with ADLs and IADLs (daughter agrees). 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 Pt does have a rolling walker and cane, but is honest about not using the tools and often furniture walking throughout her home. If she is in the community she will use them. Pt completed functional mobility task during evaluation of ~40 feet and she was independent with this while using a rolling walker; no lob. Objective Patient Orientation Person,Place,Birthday Right Upper WFL Extremity Gross ROM Left Upper Extremity WFL Gross ROM Bed Mobility bed mobility-scooting,bed mobility - supine/sit Assist Level Supervision/Stand by Transfer Training Sit/Stand Transfer Assist Level Supervision/Stand by Chair Transfer Supervision/Stand by Ability Chair Transfer Sit to/from Ambulatory Technique Chair Transfer Rolling Walker Assistive Devices Lower Body Dressing Standby Assistance Ability Upper Body Dressing Standby Assistance Ability Rehab OT IP prob,goals,plan Problems Date of Evaluation: 02/22/25 Rehab Potential Rehab Potential Innapropriate for Skilled Therapy Equipment Needs Assistive Devices Rolling / Wheeled Walker Discharge Plan OT Discharge Plan Pt appears to be at her baseline with functional transfers and ADL independence at this time. Pt can return home once she is medically stable per physician. Therapist does recommend HH OT evaluation upon returning home for environmental needs and home safety. Eval Complexity Eval Charge Codes 51221 - Moderate Complexity PHYSICIAN CERTIFICATION: I certify the specified therapy services for Lenora Rodriguez are required, authorized, and reviewed every 30 days.
--- NOTE | 2025-02-22 09:04 | HMH.OTEV ---
OT Evaluation Rehab OT IP Evaluation Start: 02/22/25 08:00 Freq: ONCE Status: Active Protocol: Document 02/22/25 08:56 CEBRETHREN (Rec: 02/22/25 09:02 [facility] [id number]) Rehab OT IP Assessment Subjective History Pt oriented x 3 on arrival. Pt agreeable to engage in therapy evaluation; pt's daughter present and supportive. Pt admitted on 02/21/25 with A-fib and RVR. History and physical: Ms. Rodriguez is a 80-year-old female who presented to the emergency department today with increased heart rate and chest pain that started around midnight. She recently had a LHC and had 2 stents placed. Was started on Plavix and aspirin. She does have a known history of paroxysmal atrial fibrillation, hyperthyroidism, CAD, KATIE, type 2 diabetes, hypertension, and [place] cell carcinoma. Patient was previously prescribed digoxin and Eliquis for her atrial fibrillation, but states she was taken off that by Dr. Summers, her leno sewer. She does endorse taking her prescribed DAPT therapy and blood pressure medications. The emergency department tried multiple doses of metoprolol IV but the patient did not convert, a diltiazem drip was started and patient converted to sinus bradycardia. Patient was also found to have a undetectable TSH, when this was discussed with the patient she states she has been following [facility] where she has tried multiple medications for her hyperthyroidism as well as recent iodine therapy. Subjective Prior to being in the hospital, pt lived at home alone. Pt had a ramp to enter home and is able to stay on one floor level of the home even though she has a basement and second story. Pt claims she is independent with ADLs and IADLs (daughter agrees). 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 Pt does have a rolling walker and cane, but is honest about not using the tools and often furniture walking throughout her home. If she is in the community she will use them. Pt completed functional mobility task during evaluation of ~40 feet and she was independent with this while using a rolling walker; no lob. Objective Patient Orientation Person,Place,Birthday Right Upper WFL Extremity Gross ROM Left Upper Extremity WFL Gross ROM Bed Mobility bed mobility-scooting,bed mobility - supine/sit Assist Level Supervision/Stand by Transfer Training Sit/Stand Transfer Assist Level Supervision/Stand by Chair Transfer Supervision/Stand by Ability Chair Transfer Sit to/from Ambulatory Technique Chair Transfer Rolling Walker Assistive Devices Lower Body Dressing Standby Assistance Ability Upper Body Dressing Standby Assistance Ability Rehab OT IP prob,goals,plan Problems Date of Evaluation: 02/22/25 Rehab Potential Rehab Potential Innapropriate for Skilled Therapy Equipment Needs Assistive Devices Rolling / Wheeled Walker Discharge Plan OT Discharge Plan Pt appears to be at her baseline with functional transfers and ADL independence at this time. Pt can return home once she is medically stable per physician. Therapist does recommend HH OT evaluation upon returning home for environmental needs and home safety. Eval Complexity Eval Charge Codes 90238 - Moderate Complexity PHYSICIAN CERTIFICATION: I certify the specified therapy services for Lenora Rodriguez are required, authorized, and reviewed every 30 days.
--- NOTE | 2025-02-22 09:26 | P.CONENDO_ITS ---
History of Present Illness *Admission Date: 02/21/25 *History of present illness: Ms. Rodriguez is a 80yr old female with a PMH of hypothyroidism, A-fib, CAD s/p recent PCI (4 weeks ago), HTN, multiple thyroid nodules, HTN, Ervin cell carcinoma and type 2 diabetes who presented to the emergency department today with with chest pain and palpitations. In the ER, patient was found to have A- fib with RVR and was also found to have a mild hyperthyroidism. Endocrinology was consulted for hyperthyroidism. Patient mentioned that she was diagnosed with hyperthyroidism around 5 yrs ago. She was found to have multiple toxic nodular goiter causing thyrotoxicosis. She was on MMI initially (from [facility]) and she stopped it as she did not like it as it caused muscle aches/abdominal pain and topped it in 2023. She was started on PTU recently by Dr. Gooden and unfortunately had a reaction with it. She also recently (on 01/18/2025) underwent RAIU with 30.8 mCi of iodine 131. - Last thyroid US: From December 2023 showed MNG with stable left dominant coarsely calcified isoechoic spongiform toxic (4.4 cm) nodule and right superior mildly hypoechoic 1.7 cm nodule and bilateral benign-appearing isoechoic 1 to 1.5 cm nodules without suspicious features. - She had FNA done twice so far with normal results. - TSH supressed since September, she was sent to be seen by Dr. Deluna at [facility] [place]. Patient mentioned that she preferred to get thyroidectomy done. However, she was scheduled for radioactive iodine therapy. [facility] Disclaimer: The information contained in this section may have been updated after the patient was seen, as this information can be updated by other users. Medical History (Updated 02/22/25 @ 14:01 by ERIN Mendes) CAD (coronary artery disease) Angina pectoris Abnormal findings on diagnostic imaging of heart and coronary circulation Edema of hand Dizziness Chest pain Abnormal electrocardiogram [ECG] [EKG] Multiple thyroid nodules Thyromegaly Hx of thyroid cyst Hx of cataract Hypertension Ervin cell cancer Type 2 diabetes mellitus Surgical History Hx of abdominal surgery Hx of hysterectomy Family History (Updated 02/21/25 @ 15:32 by Zayda Fletcher RN) Other Coronary artery disease Hyperlipidemia Hypertension Parkinson disease Raynaud disease Substance abuse Thyroid disorder Social History (Updated 02/21/25 @ 15:33 by Zayda Fletcher RN) Smoking Status: Never smoker alcohol intake: current alcohol intake frequency: holidays/special occasions only current occupational status: retired and disabled Travel in the last 8 weeks?: Inside the [place] Have you lived/traveled outside US in past 30 days?: No Contact w/someone who lives/traveled outside US past 30 days?: No Exposure to someone with infectious disease in past 14 days?: No Do you have a fever (greater than 100.4 F or 38 C)?: No Have you tested positive for COVID-19?: No Exposed to someone with COVID-19 in past 14 days?: No Do you have a sore throat?: No Do you have a cough?: No Do you have any weakness?: No Are you experiencing any nausea/vomitting?: No Do you have any diarrhea?: No Are you experiencing any unusual bleeding?: No Do you have any muscle aches/pain?: No Do you have any abdominal pain?: No Are you experiencing loss of taste or smell?: No Review of Systems Review of Systems Review of systems:: pertinent systems reviewed and negative unless documented below Constitutional Constitutional: Denies weakness Eyes Eyes: Reports system reviewed and no additional complaints, except as documented *Musculoskeletal Musculoskeletal: Denies tingling *Neurologic Neurologic: Denies tingling, Denies tremor(s) and Denies weakness Exam Data for Last 24 hours Vital signs and Labs for Last 24 Hours: Temp Pulse Resp BP Pulse Ox O2 Del Method O2 Flow Rate 97.9 F 74 19 131/81 93 L Room Air 2 02/22/25 08:00 02/22/25 08:40 02/22/25 08:00 02/22/25 08:00 02/22/25 08:00 02/22/25 08:00 02/22/25 06:00 Laboratory Results - last 24 hr 02/21/25 11:08: WBC 5.8, RBC 4.87, Hgb 14.4, Hct 43.1, MCV 88.5, MCH 29.6, MCHC 33.4, RDW 13.1, Plt Count 191, MPV 9.5, Neut % (Auto) 60.5, Lymph % (Auto) 26.4, Sauk % (Auto) 10.4 H, Eos % (Auto) 1.7, Baso % (Auto) 0.5, Neut # (Auto) 3.5, Lymph # (Auto) 1.5, Sauk # (Auto) 0.6, Eos # (Auto) 0.1, Baso # (Auto) 0.0, Sodium 139, Potassium 4.7, Chloride 105, Carbon Dioxide 26, Anion Gap 12.7, BUN 18 H, Creatinine 0.60, Estimated Creat Clear 68, Estimated GFR 96, Est GFR ( Amer) 117, Glucose 148 H, Calcium 10.3 H, Magnesium 1.5 L, Total Bilirubin 0.8, AST 34, ALT 29, Alkaline Phosphatase 102, Troponin I < 0.01, N T-Pro-B Natriuret Pep 1300 H, Total Protein 7.3, Albumin 4.4, Globulin 2.9, Albumin/Globulin Ratio 1.5, TSH < 0.02 L, Free T4 2.90 H, HCV Ab MODE w/Rflx PCR Qn Negative, HIV Ag/Ab Combo Qual Negative 02/21/25 14:15: Troponin I 0.02 02/21/25 18:15: Troponin I 0.01 02/22/25 04:54: WBC 4.9, RBC 4.13 L, Hgb 12.2 D, Hct 37.0, MCV 89.6, MCH 29.3, MCHC 32.7, RDW 13.0, Plt Count 157, MPV 9.5, Neut % (Auto) 54.4, Lymph % (Auto) 30.0, Sauk % (Auto) 11.1 H, Eos % (Auto) 3.7, Baso % (Auto) 0.6, Neut # (Auto) 2.6, Lymph # (Auto) 1.5, Sauk # (Auto) 0.5, Eos # (Auto) 0.2, Baso # (Auto) 0.0, Sodium 136, Potassium 4.1, Chloride 107, Carbon Dioxide 26, Anion Gap 7.1, BUN 20 H, Creatinine 0.70, Estimated Creat Clear 69, Estimated GFR 81, Est GFR ( Amer) 98, Glucose 108 H D, Calcium 9.4, Magnesium 1.7 D, Total Bilirubin 0.9, AST 27, ALT 24, Alkaline Phosphatase 83, Total Protein 6.0 L, A lbumin 3.6 D, Globulin 2.4, Albumin/Globulin Ratio 1.5 I & O for Last 24 hours: Intake & Output 02/19/25 02/20/25 02/21/25 02/22/25 23:59 23:59 23:59 23:59 Intake Total 455.500 / 575.500 320 / 320 Output Total 0 / 0 0 / 0 Balance 455.500 / 575.500 320 / 320 Weight 205 lb 210 lb 4.8 oz Constitutional Constitutional: no acute distress *Routine HEENT Exam Head: Present normocephalic Eye: Present EOMI and PERRL ENT: Present mucous membranes moist *Routine Neck Exam Neck: Present supple; Absent lymphadenopathy or thyromegaly Comments: No thyroid nodules appreciated on palpation. *Routine Respiratory Exam Respiratory: Present CTA bilaterally *Routine Cardiovascular Exam Cardiovascular: Present RRR and irregular rhythm *Routine Abdominal Exam Abdominal: Present soft and normoactive bowel sounds; Absent tenderness *Routine Extremities Exam Extremities: Absent cyanosis, clubbing or edema *Routine Neurological Exam Neurological: Present alert and oriented X3 Meds Home Medications and Allergies Home Medications ?Medication ?Instructions ?Recorded ?Confirmed ?Type blood-glucose meter (True Metrix #1 ea 03/16/24 Rx Air Glucose Meter) blood sugar diagnostic (True #10 ea 04/08/24 02/15/25 Rx Metrix Glucose Test Strip) lancets 33 gauge (TRUEplus Lancets) #100 ea 04/08/24 0 02/15/25 Rx ascorbic acid (vitamin C) 500 mg 500 mg PO DAILY 08/1002/21/25 History tablet cholecalciferol (vitamin D3) 1,250 1,250 mcg PO WEEKLY 08/10/24 02/21/25 History mcg (50,000 unit) capsule cinnamon bark 500 mg capsule 500 mg PO DAILY 08/10/24 02/21/25 History (Cinnamon) magnesium 250 mg tablet 250 mg PO DAILY 08/10/24 History mecobalamin (vitamin B12) 500 mcg 500 mcg PO DAILY 10/0102/21/25 History chewable tablet vitamins A,C,O-rphj-csztak 4,296 1 cap PO BID 10/01/24 02/21/25 History mcg-226 mg-90 mg capsule (PreserVision AREDS) metoprolol tartrate 25 mg tablet 25 mg PO BID 02/02/25 02/21/25 History Held on 02/22/25. Instructions: until cardiology f/u clopidogrel 75 mg tablet (Plavix) 75 mg PO DAILY 30 da ys #30 tabs 02/03/25 02/21/25 Rx aspirin 81 mg tablet,delayed 81 mg PO DAILY #30 tabs 0 02/15/25 02/21/25 Rx release (Adult Low Dose Aspirin) Held on 02/22/25. Instructions: hold until cardiology f/u irbesartan 75 mg tablet 75 mg PO DAILY 30 days #30 t abs 02/15/25 02/21/25 Rx Held on 02/22/25. Instructions: until cardiology f/u apixaban 5 mg tablet (Eliquis) 5 mg PO BID #60 tabs Rx cholestyramine 4 gram oral powder 4 g PO QID #201.6 gr ams 02/22/25 Rx digoxin 125 mcg (0.125 mg) tablet 125 mcg PO DAILY 30 days #30 tabs 02/22/25 Rx methimazole 10 mg tablet 5 mg (1/2 x 10 mg) PO DAILY 30 02/22/25 Rx days #15 tabs New Prescriptions to Start Prescriptions: apixaban [Eliquis] Mirian Massey cholestyramine Mirian Massey digoxin Mirian Massey methimazole Mirian Massey Allergies Allergy/AdvReac Type Severity Reaction Status Date / Time ciprofloxacin (From Cipro) Allergy Mild Rash Verified 02/15/25 14:16 latex Allergy Mild Rash Verified 02/15/25 14:16 metformin Allergy Mild Rash Verified 02/15/25 14:16 morphine Allergy Mild Rash Verified 02/15/25 14:16 rosuvastatin Allergy Mild Rash Verified 02/15/25 14:16 Sulfa (Sulfonamide Allergy Mild Rash Verified 02/15/25 14:16 Antibiotics) oxycodone Allergy Difficulty Verified 02/21/25 15:20 Breathing Bkjfmyp-JQF-IbK Reductase Allergy Joint Pain Verified 02/21/25 15:20 Inhibitor Assessment and Plan *Assessment and plan (1) Hyperthyroidism: Problem Comment: Secondary to toxic multinodular goiter Status: Acute Category: Medical Code(s): E05.90 - Thyrotoxicosis, unspecified without thyrotoxic crisis or storm Plan - MNG s/p radioactive ablation 4 weeks ago - Her current HR in 60's, hence will avoid propranalol. - Reviewed outside records from [facility]. - It sometimes is expected to have some mild thyrotoxicosis post ablation. Her thyroid nodule is however large, which can fail to suppress on ablation. - Start Methimazole 5mg daily and cholestyramine 4g x 4 times daily. As she had recent ablation I do not anticipate continuing this medication for a long time. - Discussed the side effects with patient and daughter at bedside. - Aim to get thyroid levels under control for now to prevent recurrent Afib. 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 Unsure if there is a component of pituitary hypofunction. - I will evaluate for ant pit panel outpatient. - Discussed with plan with primary team. - Plan to follow up in 2-4 weeks outpatient. Results Labs 02/22/25 04:54 02/22/25 04:54 labs: Diabetes panel 02/21/25 02/22/25 11:08 04:54 Creatinine 0.60 0.70 Glucose 148 H 108 H D Thyroid panel 02/21/25 11:08 TSH < 0.02 L Free T4 2.90 H Calcium panel 02/21/25 02/22/25 11:08 04:54 Calcium 10.3 H 9.4 Magnesium 1.5 L 1.7 D Alkaline Phosphatase 102 83 Albumin 4.4 3.6 D Comprehensive Metabolic Panel 02/21/25 02/22/25 11:08 04:54 Sodium 139 136 Potassium 4.7 4.1 Chloride 105 107 Carbon Dioxide 26 26 Anion Gap 12.7 7.1 BUN 18 H 20 H Creatinine 0.60 0.70 Estimated Creat Clear 68 69 Est GFR ( Amer) 117 98 Glucose 148 H 108 H D AST 34 27 ALT 29 24 Alkaline Phosphatase 102 83 Total Protein 7.3 6.0 L Albumin 4.4 3.6 D Globulin 2.9 2.4 Albumin/Globulin Ratio 1.5 1.5
--- NOTE | 2025-02-22 09:44 | PC.NURSE ---
Opal Polisher in the room at this time
--- NOTE | 2025-02-22 10:01 | HMH.PTEV ---
Physical Therapy Evaluation Rehab PT IP Evaluation Start: 02/22/25 08:00 Freq: ONCE Status: Active Protocol: Document 02/22/25 09:57 JUSTEN (Rec: 02/22/25 10:01 JUSTEN [id number]) Subjective/History History History Per H&P: Ms. Rodriguez is a 80-year-old female who presented to the emergency department today with increased heart rate and chest pain that started around midnight. She recently had a LHC and had 2 stents placed. Was started on Plavix and aspirin. She does have a known history of paroxysmal atrial fibrillation, hyperthyroidism, CAD, KATIE, type 2 diabetes, hypertension, and Ervin cell carcinoma. 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 She does endorse taking her prescribed DAPT therapy and blood pressure medications. The emergency department tried multiple doses of metoprolol IV but the patient did not convert, a diltiazem drip was started and patient converted to sinus bradycardia. Patient was also found to have a undetectable TSH, when this was discussed with the patient she states she has been following with [facility] where she has tried multiple medications for her hyperthyroidism as well as recent iodine therapy. Subjective Subjective Prior to being in the hospital, pt lived at home alone. Pt has a ramp to enter home and is able to stay on one floor level of the home even though she has a basement. Pt claims she is IND with ADLs and IADLs (daughter agrees). Pt is IND with mobility. 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 Pt does have a rolling walker and cane, but is honest about not using the tools and often furniture walking throughout her home. If she is in the community she will use her ADs. New diagnosis of No cancer in past 12 months? [facility] How much help from another person do you currently need... Turning from your None back to your side while in a flat bed without using bedrails? Moving from lying on None back to sitting on the side of a flat bed without using bedrails? Moving to and from a None bed to a chair ( including a wheelchair)? Standing up from a None chair using your arms? (e.g., wheelchair, bedside chair) Walking in hospital None room? Climbing 3-5 steps A little with a railing? Mobility Score 23 Mobility Level [facility] Mobility 7 Walk 25 feet or more Mobility Calculator Rehab PT IP Eval Objective Appearance Patient Behavior Appropriate,Cooperative Patient Orientation Person,Place Difficulty following none instructions Speech Pattern Clear Ambulation Patient Able to Yes Ambulate Ambulation Observation IP General Gait Wide Based Gait Pattern Observation Ambulation Distance 30 (feet) Ambulation Assistive Rolling Walker Device Ambulation Ability Supervision/Stand by Balance Ability to Arise Able, uses arms to help Sitting Balance Steady, safe Standing Balance Steady, wide stance Dynamic Sitting Good Balance Ability Dynamic Standing Good Balance Ability Transfers Bed Transfer Ability Supervision/Stand by Sit to Stand Bed Supervision/Stand by Transfer Ability Rehab PT IP prob,goals,plan Problems Date of Evaluation: 02/22/25 Rehab Potential Rehab Potential Innapropriate for Skilled Therapy Discharge Plan PT Discharge Plan Pt appears to be at her baseline in functional mobility and would not benefit from skilled acute care PT at this time. PT educated pt on using an AD for safety. Eval Complexity Eval Charge Codes 72447 - Moderate Complexity PHYSICIAN CERTIFICATION: I certify the specified therapy services for Lenora Rodriguez are required, authorized, and reviewed every 30 days.
--- NOTE | 2025-02-22 10:10 | P.DS_ITS ---
<Statement entered by Joe Melgar MD - 02/22/25 17:34> Rounded on patient after nurse practitioner. Personally examined and interviewed patient. Agree with exam findings and care plan as documented. General Admission date:: 02/21/25 Discharge date: 02/22/25 HPI HPI HPI: Ms. Rodriguez is a 80yr old female with a PMH of hypothyroidism, A-fib, CAD s/p recent PCI, HTN, multiple thyroid nodules, HTN, Ervin cell carcinoma and type 2 diabetes who presented to the emergency department today with with chest pain and palpitations. In the ER, patient was found to have A-fib with RVR and was also found to have a undetectable TSH, when this was discussed with the patient she states she has been following with [facility] where she has tried multiple medications for her hyperthyroidism as well as recent iodine therapy. Hospital Course Hospital Course Hospital Course: Ms. Rodriguez is a 80-year-old female who presented to the emergency department yesterday with increased heart rate and chest pain that started around midnight. She recently had a LHC and had 2 stents placed. Was started on Plavix and aspirin. She does have a known history of paroxysmal atrial fibrillation, hyperthyroidism, CAD, KATIE, type 2 diabetes, hypertension, and Ervin cell carcinoma. Patient was previously prescribed digoxin and Eliquis for her atrial fibrillation, but states she was taken off that by Dr. Summers, her rn medicare. She does endorse taking her prescribed DAPT therapy and blood pressure medications. The emergency department tried multiple doses of metoprolol IV but the patient did not convert, a diltiazem bolus and diltiazem drip were started and patient converted to sinus bradycardia. Patient was also found to have a undetectable TSH, when this was discussed with the patient, she states she has been following with [facility] where she has tried multiple medications for her hyperthyroidism, as well as recent radioactive iodine therapy. Additional lab work was remarkable for magnesium of 1.5, BNP of 1300, free T4 of 2.90. Hospital medicine was consulted for admission and further management of patient's A-fib with RVR, patient was admitted to hospital medicine. #A-fib with RVR #CAD ?Soon after patient admission patient converted to sinus bradycardia, the diltiazem drip was turned off. Patient remained in sinus rhythm during admission. Per cardiology patient was started back on her digoxin 125 mcg daily. After discussion with cardiology and the patient it was determined patient should continue to take the Eliquis 5 mg twice daily and digoxin at this time. Plans for referral to Dr. Maldonado for cardiac ablation in the near future. Patient will follow-up with cardiology in 1 week. Discussed with the patient's the importance of taking blood pressure twice daily and keeping a log. ? Patient had cardiac cath on 02/03/2025 and received 2 SARAH. She was started on Plavix and aspirin at that time. Patient should continue her DAPT therapy at discharge, per cardiology we will discontinue aspirin, metoprolol, irbesartan at this time. ? Echo 11/03/2024 showed LVEF of 55%. #Hyperthyroidism ? Patient has TSH less than 0.02, free T4 2.90. Patient states she has a longstanding history with hyperthyroidism. She has taken multiple medications (methimazole and PTU) and has been intolerant. She has recently started radioactive iodine therapy treatments at [facility]. She is interested in seeing endocrinology at [facility], will consult. ? Dr. Turpin, [facility] endocrinology, saw patient during admission. Recommendations to start methimazole 5 mg daily. Patient given office number if she is again intolerant to the medication. It was also recommended for her to try cholestyramine 4 times daily, but due to her prescription for digoxin we have opted to hold that medication at this time. Patient will follow-up with endocrinology in 2 weeks. Records from [facility] and were obtained. Total time spent on discharge 42 minutes in counseling, documentation, chart review, and direct care with patient. Exam Data for Last 24 hours Vital signs and Labs for Last 24 Hours: Temp Pulse Resp BP Pulse Ox O2 Del Method O2 Flow Rate 97.9 F 74 19 131/81 93 L Room Air 2 02/22/25 08:00 02/22/25 08:40 02/22/25 08:00 02/22/25 08:00 02/22/25 08:00 02/22/25 08:00 02/22/25 06:00 Laboratory Results - last 24 hr 02/21/25 11:08: WBC 5.8, RBC 4.87, Hgb 14.4, Hct 43.1, MCV 88.5, MCH 29.6, MCHC 33.4, RDW 13.1, Plt Count 191, MPV 9.5, Neut % (Auto) 60.5, Lymph % (Auto) 26.4, [place] % (Auto) 10.4 H, Eos % (Auto) 1.7, Baso % (Auto) 0.5, Neut # (Auto) 3.5, Lymph # (Auto) 1.5, [place] # (Auto) 0.6, Eos # (Auto) 0.1, Baso # (Auto) 0.0, Sodium 139, Potassium 4.7, Chloride 105, Carbon Dioxide 26, Anion Gap 12.7, BUN 18 H, Creatinine 0.60, Estimated Creat Clear 68, Estimated GFR 96, Est GFR ( Amer) 117, Glucose 148 H, Calcium 10.3 H, Magnesium 1.5 L, Total Bilirubin 0.8, AST 34, ALT 29, Alkaline Phosphatase 102, Troponin I < 0.01, NT-Pro-B Natriuret Pep 1300 H, Total Protein 7.3, Albumin 4.4, Globulin 2.9, Albumin/Globulin Ratio 1.5, TSH < 0.02 L, Free T4 2.90 H, HCV Ab MODE w/Rflx PCR Qn Negative, HIV Ag/Ab Combo Qual Negative 02/21/25 14:15: Troponin I 0.02 02/21/25 18:15: Troponin I 0.01 02/22/25 04:54: WBC 4.9, RBC 4.13 L, Hgb 12.2 D, Hct 37.0, MCV 89.6, MCH 29.3, MCHC 32.7, RDW 13.0, Plt Count 157, MPV 9.5, Neut % (Auto) 54.4, Lymph % (Auto) 30.0, [place] % (Auto) 11.1 H, Eos % (Auto) 3.7, Baso % (Auto) 0.6, Neut # (Auto) 2.6, Lymph # (Auto) 1.5, [place] # (Auto) 0.5, Eos # (Auto) 0.2, Baso # (Auto) 0.0, Sodium 136, Potassium 4.1, Chloride 107, Carbon Dioxide 26, Anion Gap 7.1, BUN 20 H, Creatinine 0.70, Estimated Creat Clear 69, Estimated GFR 81, Est GFR ( Amer) 98, Glucose 108 H D, Calcium 9.4, Magnesium 1.7 D, Total Bilirubin 0.9, AST 27, ALT 24, Alkaline Phosphatase 83, Total Protein 6.0 L, Albumin 3.6 D, Globulin 2.4, Albumin/Globulin Ratio 1.5 I & O for Last 24 hours: Intake & Output 02/19/25 02/20/25 02/21/25 02/22/25 23:59 23:59 23:59 23:59 Intake Total 455.500 / 575.500 320 / 320 Output Total 0 / 0 0 / 0 Balance 455.500 / 575.500 320 / 320 Weight 92.986 kg 95.39 kg Constitutional Constitutional: no acute distress, obese and cooperative *Routine HEENT Exam Head: Present normocephalic Eye: Present EOMI ENT: Present mucous membranes moist *Routine Neck Exam Neck: Present supple, full ROM and thyromegaly; Absent JVD or lymphadenopathy *Routine Respiratory Exam Respiratory: Present CTA bilaterally, normal respiratory effort, able to speak in complete sentences and symmetric chest movement; Absent wheezes or crackles *Routine Cardiovascular Exam Cardiovascular: Present RRR; Absent murmur *Routine Abdominal Exam Abdominal: Present soft, normoactive bowel sounds and obese; Absent tenderness or distended *Routine Extremities Exam Extremities: Present full ROM, pulses intact and normal capillary refill; Absent edema *Routine Skin Exam Skin: Present intact and dry; Absent erythema or rash *Routine Neurological Exam Neurological: Present alert, oriented X3, vision grossly intact, hearing grossly intact and normal speech Results Data Completed and Pending Labs on day of discharge: Labs from last 24 hours 02/22/25 02/21/25 02/21/25 04:54 18:15 14:15 WBC 4.9 RBC 4.13 L Hgb 12.2 D Hct 37.0 MCV 89.6 MCH 29.3 MCHC 32.7 RDW 13.0 Plt Count 157 MPV 9.5 Neut % (Auto) 54.4 Lymph % (Auto) 30.0 [place] % (Auto) 11.1 H Eos % (Auto) 3.7 Baso % (Auto) 0.6 Neut # (Auto) 2.6 Lymph # (Auto) 1.5 [place] # (Auto) 0.5 Eos # (Auto) 0.2 Baso # (Auto) 0.0 Sodium 136 Potassium 4.1 Chloride 107 Carbon Dioxide 26 Anion Gap 7.1 BUN 20 H Creatinine 0.70 Estimated Creat Clear 69 Estimated GFR 81 Est GFR ( Amer) 98 Glucose 108 H D Calcium 9.4 Magnesium 1.7 D Total Bilirubin 0.9 AST 27 ALT 24 Alkaline Phosphatase 83 Troponin I 0.01 0.02 NT-Pro-B Natriuret Pep Total Protein 6.0 L Albumin 3.6 D Globulin 2.4 Albumin/Globulin Ratio 1.5 TSH Free T4 HCV Ab MODE w/Rflx PCR Qn HIV Ag/Ab Combo Qual 02/21/25 11:08 WBC 5.8 RBC 4.87 Hgb 14.4 Hct 43.1 MCV 88.5 MCH 29.6 MCHC 33.4 RDW 13.1 Plt Count 191 MPV 9.5 Neut % (Auto) 60.5 Lymph % (Auto) 26.4 [place] % (Auto) 10.4 H Eos % (Auto) 1.7 Baso % (Auto) 0.5 Neut # (Auto) 3.5 Lymph # (Auto) 1.5 [place] # (Auto) 0.6 Eos # (Auto) 0.1 Baso # (Auto) 0.0 Sodium 139 Potassium 4.7 Chloride 105 Carbon Dioxide 26 Anion Gap 12.7 BUN 18 H Creatinine 0.60 Estimated Creat Clear 68 Estimated GFR 96 Est GFR ( Amer) 117 Glucose 148 H Calcium 10.3 H Magnesium 1.5 L Total Bilirubin 0.8 AST 34 ALT 29 Alkaline Phosphatase 102 Troponin I < 0.01 NT-Pro-B Natriuret Pep 1300 H Total Protein 7.3 Albumin 4.4 Globulin 2.9 Albumin/Globulin Ratio 1.5 TSH < 0.02 L Free T4 2.90 H HCV Ab MODE w/Rflx PCR Qn Negative HIV Ag/Ab Combo Qual Negative DS: Diagnosis Discharge Diagnosis (1) Atrial fibrillation with rapid ventricular response: Status: Acute Code(s): I48.91 - Unspecified atrial fibrillation (2) CAD (coronary artery disease): Status: Acute Code(s): I25.10 - Atherosclerotic heart disease of [place] coronary artery without angina pectoris (3) Hyperthyroidism: Status: Acute Code(s): E05.90 - Thyrotoxicosis, unspecified without thyrotoxic crisis or storm 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 Meds Home Medications and Allergies Home Medications ?Medication ?Instructions ?Recorded ?Confirmed ?Type blood-glucose meter (True Metrix #1 ea 03/16/24 Rx Air Glucose Meter) blood sugar diagnostic (True #10 ea 04/08/24 02/15/25 Rx Metrix Glucose Test Strip) lancets 33 gauge (TRUEplus Lancets) #100 ea 04/08/24 0 02/15/25 Rx ascorbic acid (vitamin C) 500 mg 500 mg PO DAILY 08/1002/21/25 History tablet cholecalciferol (vitamin D3) 1,250 1,250 mcg PO WEEKLY 08/10/24 02/21/25 History mcg (50,000 unit) capsule cinnamon bark 500 mg capsule 500 mg PO DAILY 08/10/24 02/21/25 History (Cinnamon) magnesium 250 mg tablet 250 mg PO DAILY 08/10/24 History mecobalamin (vitamin B12) 500 mcg 500 mcg PO DAILY 10/0102/21/25 History chewable tablet vitamins A,C,J-ppxi-fvtqmv 4,296 1 cap PO BID 10/01/24 02/21/25 History mcg-226 mg-90 mg capsule (PreserVision AREDS) metoprolol tartrate 25 mg tablet 25 mg PO BID 02/02/25 02/21/25 History Held on 02/22/25. Instructions: until cardiology f/u clopidogrel 75 mg tablet (Plavix) 75 mg PO DAILY 30 da ys #30 tabs 02/03/25 02/21/25 Rx aspirin 81 mg tablet,delayed 81 mg PO DAILY #30 tabs 0 02/15/25 02/21/25 Rx release (Adult Low Dose Aspirin) Held on 02/22/25. Instructions: hold until cardiology f/u irbesartan 75 mg tablet 75 mg PO DAILY 30 days #30 t abs 02/15/25 02/21/25 Rx Held on 02/22/25. Instructions: until cardiology f/u apixaban 5 mg tablet (Eliquis) 5 mg PO BID #60 tabs Rx cholestyramine 4 gram oral powder 4 g PO QID #201.6 gr ams 02/22/25 Rx digoxin 125 mcg (0.125 mg) tablet 125 mcg PO DAILY 30 days #30 tabs 02/22/25 Rx methimazole 10 mg tablet 5 mg (1/2 x 10 mg) PO DAILY 30 02/22/25 Rx days #15 tabs New Prescriptions to Start Prescriptions: apixaban [Eliquis] Mirian Massey cholestyramine Mirian Massey digoxin Bryson,Mirian methimazole Mirian Massey Allergies Allergy/AdvReac Type Severity Reaction Status Date / Time ciprofloxacin (From Cipro) Allergy Mild Rash Verified 02/15/25 14:16 latex Allergy Mild Rash Verified 02/15/25 14:16 metformin Allergy Mild Rash Verified 02/15/25 14:16 morphine Allergy Mild Rash Verified 02/15/25 14:16 rosuvastatin Allergy Mild Rash Verified 02/15/25 14:16 Sulfa (Sulfonamide Allergy Mild Rash Verified 02/15/25 14:16 Antibiotics) oxycodone Allergy Difficulty Verified 02/21/25 15:20 Breathing [id number] Reductase Allergy Joint Pain Verified 02/21/25 15:20 Inhibitor Discharge Plan Disposition Patient Disposition: Home, Self-Care Condition: Fair Discharge Order Discharge Orders: Discharge Order (Routine); Ordered 02/22/25 Ordered By: Mirian Massey Follow up Plan Follow up with: Meri Ingram MD [Staff Physician, Endocrinology] - 03/09/25 10:00 am Referral Note: 2-4 weeks Ernesto Hernandez MD [Staff Physician, Cardiology] - 03/01/25 1:30 am Prescriptions/Medication Reconciliation: New digoxin 125 mcg (0.125 mg) Tablet 125 mcg PO DAILY 30 Days Qty: 30 0RF methimazole 10 mg Tablet 5 mg PO DAILY 30 Days Qty: 15 0RF Eliquis 5 mg tablet 5 mg PO BID Qty: 60 0RF cholestyramine 4 gram powder 4 g PO QID Qty: 201.6 0RF Rx Instructions: administer w/meal; avoid other meds within 1hr before or 4-6hr after dose Continued magnesium 250 mg tablet 250 mg PO DAILY ascorbic acid (vitamin C) 500 mg tablet 500 mg PO DAILY cholecalciferol (vitamin D3) 1,250 mcg (50,000 unit) capsule 1,250 mcg PO WEEKLY mecobalamin (vitamin B12) 500 mcg tablet,chewable 500 mcg PO DAILY cinnamon bark [Cinnamon] 500 mg capsule 500 mg PO DAILY PreserVision AREDS 4,296 mcg-226 mg-90 mg capsule 1 cap PO BID (DME) blood-glucose meter [True Metrix Air Glucose Meter] Misc See Rx Instructions .ROUTE .MEDSUPPLY Qty: 1 0RF Rx Instructions: As directed (DME) lancets [TRUEplus Lancets] 33 gauge misc See Rx Instructions .ROUTE .MEDSUPPLY Qty: 100 0RF Rx Instructions: As directed (DME) True Metrix Glucose Test Strip Strip See Rx Instructions .ROUTE .MEDSUPPLY Qty: 10 0RF Rx Instructions: As directed clopidogrel [Plavix] 75 mg Tablet 75 mg PO DAILY 30 Days Qty: 30 3RF Held aspirin [Adult Low Dose Aspirin] 81 mg tablet,delayed release (DR/EC) 81 mg PO DAILY Qty: 30 2RF Hold Instructions: hold until cardiology f/u irbesartan 75 mg tablet 75 mg PO DAILY 30 Days Qty: 30 3RF Hold Instructions: until cardiology f/u metoprolol tartrate 25 mg Tablet 25 mg PO BID Hold Instructions: until cardiology f/u Problem Reconciliation Problems Reviewed?: Yes Patient Discharge Instructions ACTIVITY: Continue current activity and Ambulate as tolerated DIET: continue same diet Additional Instructions: Monitor blood pressures morning and night and log them. Patient Instructions: Hyperthyroidism (Alternative Therapy), Hyperthyroidism, Periodic Paralysis Syndromes, DI for Radioactive Iodine for Treating Hyperthyroidism, DI for Atrial Fibrillation, DI for Hyperthyroidism Print Language: Micronesian Providers Primary Care Provider: Jerica Ernandez Admit Provider: Jorden Vargas Attending Provider: Jorden Vargas
--- NOTE | 2025-02-22 12:22 | SW/DCPLANNER ---
Spoke with patient once she is medically stable and ready for discharge if she would be interested in home health services. Patient stated that at this time she is not interested in it and that she needs cardiac therapy. I stated to patient that i could sat her up with outpatient in [place] and patient stated that she has no ride to get there. Patient stated that she is wanting to talk to the blow down operator and see what they suggest. Reed Potts
--- NOTE | 2025-02-22 12:41 | PC.NURSE ---
Dr. Summers and Sumanth Massey PA in with patient at this time
--- NOTE | 2025-02-22 13:54 | EXP.CARD.CON ---
History of Present Illness History of Present Illness Consult date: 02/22/25 Requesting physician: Jorden Vargas Consult reason: atrial fibrillation Chief complaint: A. fib with CVR Additional Medical History:: 1. CAD A. SARAH to RCA and LAD, 02/03/2025 B. DAPT with aspirin and Plavix 2. Hypertension 3. Hyperlipidemia, familial with LDL of 150 A. Intolerant to statins B. Working on getting Repatha approved 4. Diabetes mellitus type 2 by history with recent A1c of 5.8% 5. Hypothyroidism A. History of radioactive iodine treatments 6. 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 Paroxysmal atrial fibrillation A. [id number] score of 6 (hypertension, age, diabetes, vascular disease, sex) B. Starting Eliquis therapy 02/22/2025 C. Referring for ablation therapy History of present illness: Ms. Rodriguez is a 80-year-old female who presented to the emergency department today with increased heart rate and chest pain that started around midnight. She recently had a C and had 2 stents placed. Was started on Plavix and aspirin. She does have a known history of paroxysmal atrial fibrillation, hyperthyroidism, CAD, KATIE, type 2 diabetes, hypertension, and [place] cell carcinoma. Patient was previously prescribed digoxin and Eliquis for her atrial fibrillation, but states she was taken off that by Dr. Summers, her branch customer service representative. She does endorse taking her prescribed DAPT therapy and blood pressure medications. The emergency department tried multiple doses of metoprolol IV but the patient did not convert, a diltiazem drip was started and patient converted to sinus bradycardia. Patient was also found to have a undetectable TSH, when this was discussed with the patient she states she has been following with [facility] where she has tried multiple medications for her hyperthyroidism as well as recent iodine therapy. The above per Mirian Massey APRN for the hospitalist service The above confirmed with the patient. During her stay the diltiazem has been weaned down/off because of bradycardia. Blood pressure has been controlled on no blood pressure medications. Due to recurrent A-fib but with controlled rates she was started on digoxin which has helped maintain sinus rhythm throughout the rest of her stay. There is 2 recent coronary artery stenting multiple antiarrhythmics are not good choices. After discussion with the patient she wishes to proceed with ablation therapy. We will make an outpatient referral to Dr. Maldonado in [place] for consideration of ablation therapy. We will restart Eliquis due to recurrent A-fib. [facility] Disclaimer: The information contained in this section may have been updated after the patient was seen, as this information can be updated by other users. Medical History (Updated 02/22/25 @ 14:01 by ERIN Mendes) CAD (coronary artery disease) Angina pectoris Abnormal findings on diagnostic imaging of heart and coronary circulation Edema of hand Dizziness Chest pain Abnormal electrocardiogram [ECG] [EKG] Multiple thyroid nodules Thyromegaly Hx of thyroid cyst Hx of cataract Hypertension Ervin cell cancer Type 2 diabetes mellitus Surgical History Hx of abdominal surgery Hx of hysterectomy Family History (Updated 02/21/25 @ 15:32 by Zayda Fletcher RN) Substance abuse Coronary artery disease Raynaud disease Hyperlipidemia Hypertension Parkinson disease Thyroid disorder Social History (Updated 02/21/25 @ 15:33 by Zayda Fletcher RN) Smoking Status: Never smoker alcohol intake: current alcohol intake frequency: holidays/special occasions only current occupational status: retired and disabled Travel in the last 8 weeks?: Inside the [place] Have you lived/traveled outside US in past 30 days?: No Contact w/someone who lives/traveled outside US past 30 days?: No Exposure to someone with infectious disease in past 14 days?: No Do you have a fever (greater than 100.4 F or 38 C)?: No Have you tested positive for COVID-19?: No Exposed to someone with COVID-19 in past 14 days?: No Do you have a sore throat?: No Do you have a cough?: No Do you have any weakness?: No Are you experiencing any nausea/vomitting?: No Do you have any diarrhea?: No Are you experiencing any unusual bleeding?: No Do you have any muscle aches/pain?: No Do you have any abdominal pain?: No Are you experiencing loss of taste or smell?: No Review of Systems Review of Systems Review of systems:: pertinent systems reviewed and negative unless documented below Constitutional Constitutional: Denies weakness *Cardiovascular Cardiovascular: Reports chest pain, Reports dyspnea and Reports irregular heart rhythm *Respiratory Respiratory: Reports dyspnea *Musculoskeletal Musculoskeletal: Denies tingling *Neurologic Neurologic: Denies tingling, Denies tremor(s) and Denies weakness Exam Data for Last 24 hours Vital signs and Labs for Last 24 Hours: Temp Pulse Resp BP Pulse Ox O2 Del Method O2 Flow Rate 97.8 F 60 12 122/50 L 95 Room Air 2 02/22/25 12:00 02/22/25 12:00 02/22/25 12:00 02/22/25 12:00 02/22/25 12:00 02/22/25 12:00 02/22/25 06:00 Laboratory Results - last 24 hr 02/21/25 14:15: Troponin I 0.02 02/21/25 18:15: Troponin I 0.01 02/22/25 04:54: WBC 4.9, RBC 4.13 L, Hgb 12.2 D, Hct 37.0, MCV 89.6, MCH 29.3, MCHC 32.7, RDW 13.0, Plt Count 157, MPV 9.5, Neut % (Auto) 54.4, Lymph % (Auto) 30.0, [place] % (Auto) 11.1 H, Eos % (Auto) 3.7, Baso % (Auto) 0.6, Neut # (Auto) 2.6, Lymph # (Auto) 1.5, [place] # (Auto) 0.5, Eos # (Auto) 0.2, Baso # (Auto) 0.0, Sodium 136, Potassium 4.1, Chloride 107, Carbon Dioxide 26, Anion Gap 7.1, BUN 20 H, Creatinine 0.70, Estimated Creat Clear 69, Estimated GFR 81, Est GFR ( Amer) 98, Glucose 108 H D, Calcium 9.4, Magnesium 1.7 D, Total Bilirubin 0.9, AST 27, ALT 24, Alkaline Phosphatase 83, Total Protein 6.0 L, Albumin 3.6 D, Globulin 2.4, Albumin/Globulin Ratio 1.5 I & O for Last 24 hours: Intake & Output 02/20/25 02/21/25 02/22/25 02/23/25 11:59 11:59 11:59 11:59 Intake Total 1015.500 / 1015.500 Output Total 0 / 0 Balance 1015.500 / 1015.500 Weight 208 lb 210 lb 4.8 oz Constitutional Constitutional: no acute distress *Routine Respiratory Exam Respiratory: Present CTA bilaterally *Routine Cardiovascular Exam Cardiovascular: Present RRR and bradycardia *Routine Extremities Exam Extremities: Absent edema *Routine Neurological Exam Neurological: Present alert and oriented X3 Meds Home Medications and Allergies Home Medications ?Medication ?Instructions ?Recorded ?Confirmed ?Type blood-glucose meter (True Metrix #1 ea 03/16/24 02/15/25 Rx Air Glucose Meter) blood sugar diagnostic (True #10 ea 04/08/24 02/15/25 Rx Metrix Glucose Test Strip) lancets 33 gauge (TRUEplus Lancets) #100 ea 04/08/24 02/15/25 Rx ascorbic acid (vitamin C) 500 mg 500 mg PO DAILY 08/10/24 02/21/25 History tablet cholecalciferol (vitamin D3) 1,250 1,250 mcg PO WEEKLY 08/10/24 02/21/25 History mcg (50,000 unit) capsule cinnamon bark 500 mg capsule 500 mg PO DAILY 08/10/24 02/21/25 History (Cinnamon) magnesium 250 mg tablet 250 mg PO DAILY 08/10/24 02/21/25 History mecobalamin (vitamin B12) 500 mcg 500 mcg PO DAILY 08/10/24 02/21/25 History chewable tablet vitamins A,C,B-lcoi-xaadlo 4,296 1 cap PO BID 10/01/24 02/21/25 History mcg-226 mg-90 mg capsule (PreserVision AREDS) metoprolol tartrate 25 mg tablet 25 mg PO BID 02/02/25 02/21/25 History Held on 02/22/25. Instructions: until cardiology f/u clopidogrel 75 mg tablet (Plavix) 75 mg PO DAILY 30 days #30 tabs 02/03/25 02/21/25 Rx aspirin 81 mg tablet,delayed 81 mg PO DAILY #30 tabs 02/15/25 02/21/25 Rx release (Adult Low Dose Aspirin) Held on 02/22/25. Instructions: hold until cardiology f/u irbesartan 75 mg tablet 75 mg PO DAILY 30 days #30 tabs 02/15/25 02/21/25 Rx Held on 02/22/25. Instructions: until cardiology f/u apixaban 5 mg tablet (Eliquis) 5 mg PO BID #60 tabs 02/22/25 Rx cholestyramine 4 gram oral powder 4 g PO QID #201.6 grams 02/22/25 Rx digoxin 125 mcg (0.125 mg) tablet 125 mcg PO DAILY 30 days #30 tabs 02/22/25 Rx methimazole 10 mg tablet 5 mg (1/2 x 10 mg) PO DAILY 30 02/22/25 Rx days #15 tabs New Prescriptions to Start Prescriptions: apixaban [Eliquis] Bryson,Mirian cholestyramine Bryson,Mirian digoxin Marble,Mirian methimazole Bryson,Mirian Allergies Allergy/AdvReac Type Severity Reaction Status Date / Time ciprofloxacin (From Cipro) Allergy Mild Rash Verified 02/15/25 14:16 latex Allergy Mild Rash Verified 02/15/25 14:16 metformin Allergy Mild Rash Verified 02/15/25 14:16 morphine Allergy Mild Rash Verified 02/15/25 14:16 rosuvastatin Allergy Mild Rash Verified 02/15/25 14:16 Sulfa (Sulfonamide Allergy Mild Rash Verified 02/15/25 14:16 Antibiotics) oxycodone Allergy Difficulty Verified 02/21/25 15:20 Breathing Mnqrlvb-CSQ-QlW Reductase Allergy Joint Pain Verified 02/21/25 15:20 Inhibitor Assessment and Plan *Assessment and plan (1) Atrial fibrillation with rapid ventricular response: Status: Acute Category: Medical Code(s): I48.91 - Unspecified atrial fibrillation (2) Hyperthyroidism: Problem Comment: Secondary to toxic multinodular goiter Status: Acute Category: Medical Code(s): E05.90 - Thyrotoxicosis, unspecified without thyrotoxic crisis or storm (3) CAD (coronary artery disease): Status: Acute Qualifiers: Coronary Disease-Associated Artery/Lesion type: mary[place] artery [place] vs. transplanted heart: mary[place] ig[place] heart Associated angina: without angina Qualified Code(s): I25.10 - Atherosclerotic heart disease of mary[place] igloo coronary artery without angina pectoris Category: Medical Code(s): I25.10 - Atherosclerotic heart disease of mary[place] ig[place] coronary artery without angina pectoris (4) Serum calcium elevated: Status: Acute Category: Medical Code(s): E83.52 - Hypercalcemia (5) Hypertension: Status: Acute Qualifiers: Hypertension type: primary hypertension Qualified Code(s): I10 - Essential (primary) hypertension Category: Medical Code(s): I10 - Essential (primary) hypertension (6) Hyperlipidemia: Status: Acute Qualifiers: Hyperlipidemia type: other hyperlipidemia Qualified Code(s): E78.49 - Other hyperlipidemia Category: Medical Code(s): E78.5 - Hyperlipidemia, unspecified (7) Type 2 diabetes mellitus: Status: Acute Qualifiers: Diabetes mellitus intermediate insulin use: without bed bug exterminator use Diabetes mellitus complication status: without complication Qualified Code(s): E11.9 - Type 2 diabetes mellitus without complications Category: Medical Code(s): E11.9 - Type 2 diabetes mellitus without complications (8) Obesity: Status: Acute Qualifiers: Obesity type: due to excess calories Obesity classification: adult class 1 (BMI 30 - 34.9) Serious obesity comorbidity presence: without serious comorbidity Body mass index: BMI 34.0-34.9 Qualified Code(s): E66.811 - Obesity, class 1; E66.09 - Other obesity due to excess calories; Z68.34 - Body mass index [BMI] 34.0-34.9, adult Category: Medical Code(s): E66.9 - Obesity, unspecified Plan 1. Atrial fibrillation with a rapid ventricular response - IV diltiazem converted patient back to sinus rhythm - [id number] score of at least 6 - Starting Eliquis therapy 02/22/2025 -Referring to Dr. Maldonado for ablation consideration 2. Hypertension -Currently controlled on no medications -Will hold at discharge but continue to monitor blood pressure at home and restart as needed 3. Hyperthyroidism with elevated calcium -Patient being followed by endocrinology here at [facility] -Restarting methimazole per endocrinology recommendations 4. Hyperlipidemia -Intolerant to statin therapy -Working to get Repatha covered -Patient taking cholestyramine 5. Diabetes mellitus type 2 -Patient taking cinnamon bark -Hemoglobin A1c 5.8 on 10/01/2024 6. CAD with recent coronary stenting -Resume Plavix therapy -Discontinue aspirin due to institution of Eliquis therapy 7. Elevated BNP with no evidence of volume overload or CHF on chest x-ray Clinically stable from a cardiac standpoint for discharge home. Follow-up with Dr. Summers in 1 to 2 weeks. Home medication recommendations: Plavix 75 mg daily Eliquis 5 mg twice daily Digoxin 0.125 mg daily Resume methimazole as instructed by endocrinology Discontinue aspirin, metoprolol and irbesartan at this time
--- NOTE | 2025-02-23 10:06 | SW/DCPLANNER ---
Spoke with patient on the phone. Patient stated that she is doing well just gets tired really easy. Patient stated that she is aware of her upcoming appointments. Patient stated that she was able to get her new medicine picked up from clinic pharmacy. Patient stated that she has no concerns or questions at this time. Reed Potts
== END 2025-02-22 15:45 | disposition home or self-care (01) | DRG 645 ==
LOC: ER 13:17 → ICU 13:31
PROVIDERS: Admitting Provider Student in an Organized Health Care Education/Training Program; Emergency Provider Student in an Organized Health Care Education/Training Program; PCP Nurse Practitioner Family; Visit Provider Student in an Organized Health Care Education/Training Program
DX: E05.90 Thyrotoxicosis, unspecified without thyrotoxic crisis or storm (principal); I48.0 Paroxysmal atrial fibrillation; I25.10 Atherosclerotic heart disease of native coronary artery without angina pectoris; I10 Essential (primary) hypertension; E11.9 Type 2 diabetes mellitus without complications; G47.33 Obstructive sleep apnea (adult) (pediatric); E78.5 Hyperlipidemia, unspecified; E83.52 Hypercalcemia; R00.1 Bradycardia, unspecified; E66.811 Obesity, class 1; Z66 Do not resuscitate; Z95.5 Presence of coronary angioplasty implant and graft; Z92.3 Personal history of irradiation; Z68.33 Body mass index [BMI] 33.0-33.9, adult; Z85.821 Personal history of Merkel cell carcinoma; Z79.899 Other long term (current) drug therapy; Z79.02 Long term (current) use of antithrombotics/antiplatelets; Z79.82 Long term (current) use of aspirin; Z88.5 Allergy status to narcotic agent; Z88.2 Allergy status to sulfonamides; Z88.8 Allergy status to other drugs, medicaments and biological substances; Z88.1 Allergy status to other antibiotic agents; Z91.040 Latex allergy status
CPT/HCPCS: 36415; 71046; 80053; 83735; 83880; 84439; 84443; 84480; 84484; 85025; 86803; 87389; 93005; 97162; 97166; 99285; J1650; J3475

== ENCOUNTER 2025-03-01 14:36 | Outpatient (CLI) | payer MEDICARE, OTHER, SELFPAY ==
--- OUTSIDE RECORDS SUMMARY | 2025-01-18 13:00 | XMS_ITS | Encounter Summary ---
Author Organization [facility] Address [address] [place] [address] Care Team Providers Care Principal Examiner Name Role Phone Mamadou Singletary PA-C Primary Care Provider [phone] Reason for Visit * MRI/CAT/PET Scan (Routine) - Closed Specialty Diagnoses / Procedures Referred By Contac t Referred To Contact Radiology Diagnoses Multinodular goiter Hyperthyroidism Procedures NM Therapy Hyperthyroid Initial NM Thyroid Therapy Ablation Basic Mamadou Singletary PA-C [address] [employer] [address] [address] Phone: tel: fax: [facility] [address] [place] [phone] Phone: tel: Referral ID Status Reason Start Date Expiration Date Visits Re quested Visits Authorized [id number] Closed 01/05/2025 04/06/2026 1 1 Encounter Details Date Type Department Care Team (Latest Contact Info) Description 01/18/2025 1:00 PM EDT - 01/18/2025 11:59 PM EDT Hospital Encounter [facility] [address] [place] [phone] Mamadou Singletary PA-C [address] [employer] [place] [address] Multinodular goiter; Hyperthyroidism Discharge Disposition: Home or [...] as of this encounter Plan of Treatment Not on file documented as of this encounter Procedures Procedure [...] MD 01/30/2025 8:39 AM EDT Workstation ID: [id number] Narrative 01/30/2025 8:39 AM EDT DATE OF [...] patient both by me and the nuclear officer. She was furnished with a written list [...] patient both by me and the nuclear officer. She was furnished with a writtenlist of posttreatment contact precautions for her reference. She indicatedher understanding and agrees to treatment. Accordingly, the dose of 30.8mCi of iodine-131 was administered the patient without complication. IMPRESSION: Right I-131 thyroid therapy without complication. Electronically Signed: Thomas Gonzalez MD 01/30/2025 8:39 AM EDT Workstation ID: [id number] Mamadou Singletary PA-C IM NM ORDERABLES Final Res ult documented in [...] millicuries documented in this encounter Care Teams Principal Examiner Relationship Specialty Start Date End Date Mamadou Singletary PA-C [address] [address] PCP - General Physician Analysis Director 01/18/25 documented as of this encounter
--- OUTSIDE RECORDS SUMMARY | 2025-01-21 10:55 | XMS_ITS | Encounter Summary ---
Author Organization Healthcare Address [address] [id number] Care Team Providers Care Display Decorator Name Role Phone Pcp, No Primary Care Provider Unavailabl e Encounter Details Date Type Department Care Team (Late st Contact Info) Description 01/21/2025 10:55 AM EDT Ancillary Procedure [phone] [phone] Chest pain Social History Tobacco Use Types [...] Data Image Acquisition: Images were acquired at [facility] in [place], and interpreted at [facility]. A 128-slice MDCT scanner ([employer] Pan[employer]ve) was used for data acquisition. A non-contrast [...] was reviewed interactively on an advanced workstation (ActiveGift) capable of 2 and 3 dimensional displays [...] Data Image Acquisition: Images were acquired at [facility] in [place], andinterpreted at [facility]. A 128-slice MDCT scanner ([employer] [employer]) was used for data acquisition. A non-contrast [...] Data wasreviewed interactively on an advanced workstation (ActiveGift) capable of 2and 3 dimensional displays in [...] on 01/21/2025 2:38 PM us Arielle Lee FOURTH HAND IMG CT PROCEDURES Final Resu lt documented in this encounter Visit Diagnoses Diagnosis Chest pain Unspecified chest pain documented in this encounter Care Teams Display Decorator Relationship Specialty Start Date End Date Pcp, Natalia [address] [place] [address] PCP - General Family Medicine 04/17/23 documented as of this encounter
--- OUTSIDE RECORDS SUMMARY | 2025-03-01 14:40 | XMS_ITS | Clinical Summary ---
Author Organization Healthcare Address [address] [place] [address] Care Team Providers Care Calender Let Off Helper Name Role Phone Pcp, No Primary Care Provider Unavailabl e Encounters Date Type Department Care Team Description 01/21/2025 10:55 AM EDT Ancillary Procedure [address] [facility] [address] [phone] Chest pain from Last 3 Months Social [...] r (1 - 1-dose 75+ series) 2021 [id number] Vaccine (1 - 20 24-25 season) 2025 [...] Data Image Acquisition: Images were acquired at [facility] in [place], and interpreted at [facility]. A 128-slice MDCT scanner ([employer] View) was used for data acquisition. A [...] was reviewed interactively on an advanced workstation (Beijingyicheng) capable of 2 and 3 dimensional displays [...] Data Image Acquisition: Images were acquired at [facility] in [place], andinterpreted at [facility]. A 128-slice MDCT scanner ([employer]) was used for data acquisition. A non-contrast [...] Data wasreviewed interactively on an advanced workstation (Beijingyicheng) capable of 2and 3 dimensional displays in [...] MD on 01/21/2025 2:38 PM Arielle Lee TRACK LAYING MACHINE OPERATOR IMG CT PROCEDURES Final Resu lt from Last 3 Months Insurance MEDICARE [employer] Care Teams Calender Let Off Helper Relationship Specialty Start Date End Date Pcp, Natalia [address] [place] [address] PCP - General Family Medicine 04/17/23
--- OUTSIDE RECORDS SUMMARY | 2025-03-01 14:40 | XMS_ITS | Clinical Summary ---
Author Organization [facility] Address [address] [place] [address] Care Team Providers Care Desk Editor Name Role Phone Carolynn Pelletier MD Primary Care Provider [phone] Source Comments This information has been disclosed [...] therelease of HIV test results or diagnoses. [id number] Allerg[facility] Active Allergy Reactions Criticality Noted Date [...] - Td or Tdap) 06/09/2027 06/09/2017 Insurance [employer] PPO MEDICARE Care Teams Desk Editor Relationship Specialty Start Date End Date Carolynn Pelletier MD [address] [place] [address] [address] [place] [address] PCP - General Family Medicine 12/31/23
--- OUTSIDE RECORDS SUMMARY | 2025-03-01 14:40 | XMS_ITS | Clinical Summary ---
Author Organization [facility] Address [address] [place] [address] Care Team Providers Care Phlebotomy Support Tech Name Role Phone None, None Primary Care [...] [facility] [address] from Last 3 Months or Most Recently Relevant to Health Maintenance Insurance MEDICARE MEDICARE Care Teams Phlebotomy Support Tech Relationship Specialty Start Date End Date None, None [address] [place] [address] PCP - General 04/23/19
--- OUTSIDE RECORDS SUMMARY | 2025-03-01 14:40 | XMS_ITS | Clinical Summary ---
Author Organization [facility] Address [address] [place] [address] Care Team Providers Care Cessation Systems Outreach Specialist Name Role Phone Mamadou Singletary PA-C [...] despite reviewing records from [facility] and [facility] Most likely, well-controlled on methimazole, but [...] Type Department Care Team Description 02/11/2025 Telephone [facility] [address] [facility] [address] [place] [address] Mamadou Singletary PA-C 01/31/2025 Results Follow-Up [facility] [address] [place] [address] Mamadou Singletary PA-C 01/18/2025 1:00 PM EDT - 01/18/2025 11:59 PM EDT Hospital Encounter [facility] [address] [place] [id number] Mamadou Singletary PA-C Multinodular goiter; Hyperthyroidism Discharge Disposition: Home or Self Care 01/18/2025 Travel 01/11/2025 Telephone [facility] [address] [facility] [address] [place] [address] Mamadou Singletary PA-C 01/03/2025 Telephone [facility] [address] [facility] [address] [place] [address] Mamadou Singletary PA-C 12/29/2024 Results Follow-Up [facility] [address] [address] Mamadou Singletary PA-C 12/28/2024 1:00 PM EDT Office Visit [facility] [address] [address] Mamadou Singletary PA-C Hyperthyroidism (Primary [...] 12/28/2024 1:19 PM EDT Plan of Treatment Health Maintenance [...] 12/27/2024 HEPATITIS C SCREENING 12/27/2024 INFLUENZA VACCINE 01/07/2025 COLOGUARD Discontinued 04/15/2023, 07/22/2018 COLORECTAL CANCER SCREENING [...] MD 01/30/2025 8:39 AM EDT Workstation ID: [id number] Narrative 01/30/2025 8:39 AM EDT DATE OF [...] patient both by me and the nuclear chemistry technician. She was furnished with a written list [...] patient both by me and the nuclear chemistry technician. She was furnished with a writtenlist of posttreatment contact precautions for her reference. She indicatedher understanding and agrees to treatment. Accordingly, the dose of 30.8mCi of iodine-131 was administered the patient without complication. IMPRESSION: Right I-131 thyroid therapy without complication. Electronically Signed: Thomas Gonzalez MD 01/30/2025 8:39 AM EDT Workstation ID: [id number] Mamadou Singletary PA-C IMG NM ORDERABLES Final Res ult * Thyroid Stimulating Immunoglobulin (12/28/2024 1:52 PM EDT) Thyroid Stimulating Immunoglobulin <0.10 0.00 - 0.55 IU/L 01/02/2025 4:09 PM EDT [facility] Blood Structure of left upper limb / Unknown Venipuncture / Unknown 12/28/2024 1:52 PM EDT 12/28/2024 1:53 PM EDT Narrative [facility] - 01/02/2025 4:09 PM EDT Performed at: [facility] [id number] Emissions Testing Technician: Eder Mauricio MD, Phone: [phone] Mamadou Singletary PA-C LAB BLOOD ORDERABLES Final Result [facility] [address] [place] [address], * T3, Free (12/28/2024 1:52 PM EDT) T3, Free 4.13 2.00 - 4.40 pg/mL 12/29/2024 12:47 AM EDT [facility] Blood Venipuncture / Unknown 12/28/2024 1:52 PM EDT 12/28/2024 1:53 PM EDT Katbrendaa Ednacot PA-C LAB BLOOD ORDERABLES Final Result Performing Organization Address City/[facility]/ZIP Co de Phone Number [facility]
[address] [place] [address], [place] [phone] * (ABNORMAL) TSH (12/28/2024 1:52 PM EDT) [facility] TSH 0.017(L) 0.270 - 4.200 uIU/mL 12/29/2024 12:47 AM EDT [facility] Blood Venipuncture / Unknown 12/28/2024 1:52 PM EDT 12/28/2024 1:53 PM EDT Gerrya Ednacot PA-C LAB BLOOD ORDERABLES Final Result Performing Organization Address [facility] Co de Phone Number [facility]
[address] [place] [address], [place] [phone] * T4, Free (12/28/2024 1:52 PM EDT) Pathologist [facility] Free T4 1.32 0.92 - 1.68 ng/dL 12/29/2024 12:47 AM EDT [facility] Blood Venipuncture / Unknown 12/28/2024 1:52 PM EDT 12/28/2024 1:53 PM EDT Katisha Ednacot PA-C LAB BLOOD ORDERABLES Final Result Performing Organization Address City/[facility]/ZIP Co de Phone Number [facility]
[address] [place], [place] [address] [phone] from Last 3 Months Insurance [employer] Care Teams Cessation Systems Outreach Specialist Relationship Specialty Start Date End Date Mamadou Singletary PA-C [address] [address] PCP - General Physician Lime Mixer 01/18/25
--- OUTSIDE RECORDS SUMMARY | 2025-03-01 14:40 | XMS_ITS | Encounter Summary ---
[facility] Address [address] [place] [address] Care Team Providers Care Boat Cleaning Supervisor Name Role Phone Mamadou Singletary PA-C Primary Care Provider Encounter Details Date Type Department Care Team (Late st Contact Info) Description 01/11/2025 Telephone [facility] [address] [facility] [address] [place] [address] Mamadou Singletary PA-C [address] [place] [address] Social History Tobacco Use Types Packs/Day Years [...] PATIENT RETURNED OUR CALL. PHONE NUMBER IS [phone] * Telephone Encounter - Rohini Dejesus - [...] get a call back to [facility] her, juan pablo documented in this encounter Plan of Treatment Not on file documented as of this encounter Visit Diagnoses Not on filedocumented in this encounter Care Teams Boat Cleaning Supervisor Relationship Specialty Start Date End Date Mamadou Singletary PA-C [address] [place] [address] PCP - General Physician Hearing Care Practitioner 01/18/25 documented as of this encounter
--- OUTSIDE RECORDS SUMMARY | 2025-03-01 14:40 | XMS_ITS | Encounter Summary ---
[facility] Address [address] [place] [address] Care Team Providers Care Director Of Database Marketing Name Role Phone Mamadou Singletary PA-C Primary Care Provider [phone] Encounter Details Date Type Department Care Team (Late st Contact Info) Description 12/29/2024 Results Follow-Up [facility] [address] Mamadou Singletary PA-C [address] [place] [address] Social History Tobacco Use Types Packs/Day [...] on filedocumented in this encounter Care Teams Director Of Database Marketing Relationship Specialty Start Date End Date Mamadou Singletary PA-C [address] [address] PCP - General Physician Lead Shipper 01/18/25 documented as of this encounter
--- OUTSIDE RECORDS SUMMARY | 2025-03-01 14:40 | XMS_ITS | Encounter Summary ---
[facility] Address [address] [place] [address] Care Team Providers Care Flat Sorter Processor Name Role Phone Mamadou Singletary PA-C Primary Care Provider [phone] Encounter Details Date Type Department Care Team (Late st Contact Info) Description 01/31/2025 Results Follow-Up [facility] [address] Mamadou Singletary PA-C [address] [place] [address] Social History Tobacco Use Types Packs/Day [...] on filedocumented in this encounter Care Teams Flat Sorter Processor Relationship Specialty Start Date End Date Mamadou Singletary PA-C [address] [place] [address] PCP - General Physician Eyewear Manufacturing Supervisor 01/18/25 documented as of this encounter
--- OUTSIDE RECORDS SUMMARY | 2025-03-01 14:40 | XMS_ITS | Encounter Summary ---
Author Organization [facility] Address [address] [place] [address] Care Team Providers Care Insulation Nozzleman Name Role Phone Ernesto Hernandez MD Primary Care Provider [phone] Encounter Details Date Type Department Care Team (Late st Contact Info) Description 01/03/2025 Telephone [facility]Y 30[address] [facility] 100 [place] [address] Sonia Singletary PA-C [address] [facility] [address] [place] [address] Social History Tobacco Use Types Packs/Day Years [...] SEE WHAT SONIA SUGGESTS. PHONE NUMBER IS [phone] documented in this encounter Plan of Treatment Not on file documented as of this encounter Visit Diagnoses Diagnosis Hyperthyroidism Thyrotoxicosis without mention of goiter or other cause, without mention of thyrotoxic crisis or storm documented in this encounter Care Teams Insulation Nozzleman Relationship Specialty Start Date End Date Ernesto Hernandez MD [facility] [address] [place] [id number] PCP - General Internal Medicine 12/28/24 01/17/25 documented as of this encounter
--- OUTSIDE RECORDS SUMMARY | 2025-03-01 14:40 | XMS_ITS | Encounter Summary ---
Author Organization [facility] Address [address] [place] [address] Care Team Providers Care Tool Setter Name Role Phone Mamadou Singletary PA-C Primary Care Provider Encounter Details Date Type Department Care Team (Late st Contact Info) Description 02/11/2025 Telephone [facility] 3084 [facility] [address] [place] [address] Mamadou Singletary PA-C [address] [facility] [address] [place] [address] Social History Tobacco Use Types Packs/Day Years [...] on filedocumented in this encounter Care Teams Tool Setter Relationship Specialty Start Date End Date Mamadou Singletary PA-C [address] [address] PCP - General Physician Gluer 01/18/25 documented as of this encounter
--- OUTSIDE RECORDS SUMMARY | 2025-03-01 14:40 | XMS_ITS | Encounter Summary ---
Author Organization [facility] Address [address] [place] [address] Care Team Providers Care Affiliate Marketing Coordinator Name Role Phone Mamadou Singletary PA-C Primary Care Provider [phone] Encounter Details Date Type Department Care Team [...] on filedocumented in this encounter Care Teams Affiliate Marketing Coordinator Relationship Specialty Start Date End Date Mamadou Singletary PA-C [address] [place] [address] PCP - General Physician Senior Advocate 01/18/25 documented as of this encounter
[2025-03-01 16:29] LABS: Hematocrit 42.2 % (37.0-47.0); Hemoglobin 13.6 g/dL (12.2-16.2); Immature Granulocytes % 0.7 %; Mean Corpuscular HGB Conc 32.2 g/dL (31.8-35.4); Mean Corpuscular Hemoglobin 28.6 pg (27.0-31.2); Mean Corpuscular Volume 88.7 fl (81-99); Nucleated Red Blood Cells % 0 %; Platelet Count 222 K/mm3 (142-424); Red Blood Count 4.76 M/mm3 (4.20-5.40); Red Cell Distribution Width-SD 41.9 fL; White Blood Count 5.7 K/mm3 (4.8-10.8)
[2025-03-01 17:13] LABS: Albumin Level 4.2 g/dl (3.5-5.0); Chloride 101 mmol/L (98-107)
[2025-03-01 17:14] LABS: Potassium 4.7 mmoL/L (3.5-5.1); Sodium 138 mmol/L (136-145)
[2025-03-01 17:16] LABS: Alanine Aminotransferase 23 U/L (12-78); Anion Gap 15.7 mEq/L (5-15); Aspartate Amino Transferase 34 U/L (14-36); Bilirubin,Unconjugated 0.8 mg/dL (0.0-1.1); Blood Urea Nitrogen 19 mg/dl (7-17); Carbon Dioxide 26 mmol/L (22.0-30.0); Creatinine,Serum 0.60 mg/dl (0.52-1.04); Estimated Glomerular Filt Rate 96 ml/min (>60); GFR (African American) 117 ML/MIN (>60)
[2025-03-01 17:17] LABS: Alkaline Phosphatase 100 U/L (38-126); Bilirubin,Direct 0.2 mg/dl (0.0-0.4); Bilirubin,Indirect 0.8 mg/dL (0.0-0.9); Bilirubin,Total 1.0 mg/dl (0.2-1.3); Calcium 10.3 mg/dl (8.4-10.2); Glucose 113 mg/dl (74-100); Total Protein,Serum 6.4 g/dl (6.3-8.2)
[2025-03-01 20:54] LABS: Digoxin < 0.40 ng/ml (0.2-2.00)
== END 2025-03-01 23:59 | disposition home or self-care (01) ==
PROVIDERS: Nurse Practitioner; Visit Provider Internal Medicine
DX: E83.52 Hypercalcemia (principal); E05.90 Thyrotoxicosis, unspecified without thyrotoxic crisis or storm; R42 Dizziness and giddiness; I10 Essential (primary) hypertension; E78.5 Hyperlipidemia, unspecified; I25.119 Atherosclerotic heart disease of native coronary artery with unspecified angina pectoris
CPT/HCPCS: 36415; 80048; 80076; 80162; 83970; 85025

== ENCOUNTER 2025-03-09 11:09 | Outpatient (CLI) | payer MEDICARE, OTHER, SELFPAY ==
--- OUTSIDE RECORDS SUMMARY | 2025-01-18 13:00 | XMS_ITS | Encounter Summary ---
Author Organization [facility] Address [address] [place] [address] Care Team Providers Care Inclusion Intern Name Role Phone Mamadou Singletary PA-C Primary Care Provider [phone] Reason for Visit * MRI/CAT/PET Scan (Routine) - Closed Specialty Diagnoses / Procedures Referred By Contac t Referred To Contact Radiology Diagnoses Multinodular goiter Hyperthyroidism Procedures NM Therapy Hyperthyroid Initial NM Thyroid Therapy Ablation Basic Mamadou Singletary PA-C [address] [address] Phone: tel: fax: [facility] [address] [place] [phone] Phone: tel: Referral ID Status Reason Start Date Expiration Date Visits Re quested Visits Authorized [id number] Closed 01/05/2025 04/06/2026 1 1 Encounter Details Date Type Department Care Team (Latest Contact Info) Description 01/18/2025 1:00 PM EDT - 01/18/2025 11:59 PM EDT Hospital Encounter [facility] [address] [place] [phone] Mamadou Singletary PA-C [address] [place] [address] Multinodular goiter; Hyperthyroidism Discharge Disposition: Home or [...] Care Team (Late st Contact Info) Description 05/02/2025 1:00 PM EST Office Visit [facility] [address] [facility] [address] [place] [address] Krishna Baumann DO [address] [facility] [address] [place] [address] documented as of this encounter Procedures Procedure [...] MD 01/30/2025 8:39 AM EDT Workstation ID: [id number] Narrative 01/30/2025 8:39 AM EDT DATE OF [...] the patient both by me and the agricultural research technologist. She was furnished with a written list [...] the patient both by me and the agricultural research technologist. She was furnished with a writtenlist of posttreatment contact precautions for her reference. She indicatedher understanding and agrees to treatment. Accordingly, the dose of 30.8mCi of iodine-131 was administered the patient without complication. IMPRESSION: Right I-131 thyroid therapy without complication. Electronically Signed: Thomas Gonzalez MD 01/30/2025 8:39 AM EDT Workstation ID: [id number] Mamadou Singletary PA-C [facility] NM ORDERABLES Final Res ult documented in [...] millicuries documented in this encounter Care Teams Inclusion Intern Relationship Specialty Start Date End Date Mamadou Singletary PA-C [address] [place] [address] PCP - General Physician Manager Of Revenue 01/18/25 documented as of this encounter
--- OUTSIDE RECORDS SUMMARY | 2025-01-21 10:55 | XMS_ITS | Encounter Summary ---
Author Organization Healthcare Address [address] [id number] Care Team Providers Care Building Maintenance Technician Name Role Phone Pcp, No Primary Care Provider Unavailabl e Encounter Details Date Type Department Care Team (Late st Contact Info) Description 01/21/2025 10:55 AM EDT Ancillary Procedure [id number] [phone] Chest pain Social History Tobacco Use Types [...] Data Image Acquisition: Images were acquired at [facility] in [place], and interpreted at [facility]. A 128-slice MDCT scanner ([employer] [place]on) was used for data acquisition. A non-contrast [...] was reviewed interactively on an advanced workstation (Personalis) capable of 2 and 3 dimensional displays [...] Data Image Acquisition: Images were acquired at [facility] in [place], andinterpreted at [facility]. A 128-slice MDCT scanner ([employer] 2000) was used for data acquisition. A non-contrast [...] Data wasreviewed interactively on an advanced workstation (Personalis) capable of 2and 3 dimensional displays in [...] on 01/21/2025 2:38 PM us Arielle Lee OVEREDGE MACHINE OPERATOR IMG CT PROCEDURES Final Resu lt documented in this encounter Visit Diagnoses Diagnosis Chest pain Unspecified chest pain documented in this encounter Care Teams Building Maintenance Technician Relationship Specialty Start Date End Date Pcp, Natalia [address] [place] [address] PCP - General Family Medicine 04/17/23 documented as of this encounter
--- NOTE | 2025-03-09 11:00 | CA_ITS ---
APPROVED REPORT EXAM: Limited 2D Echocardiogram Shower Maid: Sabrina Ashley CRT Ht: 5 ft 5 in Wt: 206lbs BSA: 2.00 BP: 162/91 mmHg Indications: Lv function check for dyspnea M-Mode Dimensions RVDd 2.50 cm (0.9-2.6) LVDd 4.54 cm (3.5-5.7) LVDs 2.90 cm (3.5-5.7) IVSd 1.72 cm (0.6-1.1) PWd 1.14 cm (0.6-1.1) EF (Teich) 65.90% FS 36.10% EDV (Teich) 94.40 mL ESV (Teich) 32.20 mL Other Information Study Quality: Fair Conclusion This is a limited TTE to evaluate for LV systolic function. Limited windows were obtained. The left ventricle is normal in size. There is increased LV wall thickness. There is normal global LV systolic function. No regional wall motion abnormalities are noted. LVEF is 60%. Electronically signed by : Melina Hernandez MD 03/09/2025 12:18:33
--- OUTSIDE RECORDS SUMMARY | 2025-03-09 12:21 | XMS_ITS | Encounter Summary ---
[facility] Organization [facility] Address [address] [place] [address] Care Team Providers Care Preschool Head Teacher Name Role Phone Mamadou Singletary PA-C Primary Care Provider [phone] Encounter Details Date Type Department Care Team (Late st Contact Info) Description 01/31/2025 Results Follow-Up [facility] ENDOCRINOLOGY [facility] [address] Mamadou Singletary PA-C [address] [place], [place] [id number] Social History Tobacco Use Types Packs/Day Years [...] Description 05/02/2025 1:00 PM EST Office Visit [facility] CARDIOLOGY [address] [facility] 400 [place] [id number] Krishna Baumann, DO [address] [facility] [address] [place] [address] documented as of this encounter Visit Diagnoses Not on filedocumented in this encounter Care Teams Preschool Head Teacher Relationship Specialty Start Date End Date Mamadou Singletary PA-C 1775 [facility] [address] [place] [address] PCP - General Physician Lobster Fisherman 01/18/25 documented as of this encounter
--- OUTSIDE RECORDS SUMMARY | 2025-03-09 12:21 | XMS_ITS | Data Portability ---
Author Organization [employer] [facility] [place] Address [address] [place] [address] Care Team Providers Care Wood Filler Name Role Phone ODELL BROWN Primary Care Provider Assessment No assessment recorded. Plan of Treatment Reminders Order Date Submit Date Provider Last Modified By Organization Details Last Modified Time Details Appointments None recorded. Lab None recorded. Referral None recorded. Procedures fine needle aspiration, ultrasound guided, thyroid (PROC) 2023 024 [email or web address] Not available 11:48:53 Surgeries None recorded. Imaging None recorded. Medication Orders None recorded. Patient TargetsNo targets recorded. Patient Instructions Encounter Date Encounter Id Patient Instructions Last Modified By Organization Details Last Modified Time 11/11/2023 [id number] I have personall y reviewed the data obtained and entered from the scribe, medical imaging technologist or nurse for this patient for this patient encounter. Discussed with patient. Patient to be referred for thyroid biopsy. Patient to obtain old biopsy report. Patient follow-up in 2-3 weeks. [email or web address] Not available 11/11/2023 14:34:08 Reason for Referral None Reported. Procedures Surgical History Date Name Laterality Status Provider Name and Address Organization Details Recorded Time 06/09/19 06 Abdominal Surgery completed Karen [facility] & [place] 11/11/2023 14:09:28 06/09/19 04 Other completed Karen [facility] & [place] 11/11/2023 14:09:28 06/09/19 04 Hip Surgery completed Karen [facility] & [place] 11/11/2023 14:09:28 06/09/19 04 Abdominal Surgery completed Karen Benson [place] [facility] [place] 11/11/2023 14:09:28 06/09/18 89 Abdominal Surgery completed Karen Benson [place] [facility] [place] 11/11/2023 14:09:28 procedure on abdomen completed Cathy Benson [place] [facility] [place] 11/07/2023 08:01:20 hernia repair completed Cathy CAREY [facility] & [place] 11/07/2023 08:01:26 Hysterectomy completed Cathy Benson [place] [facility] [place] 11/07/2023 08:01:33 Imaging Results None recorded. Procedure Notes None recorded. Medical Equipment None Reported. Allergies Allergen ID Allergen Name Allergen Category Reaction Reaction Severity Criticality Documentation Date Start Date Code Code System Note Provider Name and Address Organization Details Recorded Time 187603 azithromy kristie medicatio n Not available Not available Not available 11/07/2023 93970 RxNorm MARCOS Altamirano [facility] & [place] 4 08:03:26 155994 hydrochlo rothiazid e medicatio n Not available Not available Not available 11/07/2023 5487 RxNorm MARCOS Altamirano [facility] & [place] 4 08:03:32 053199 lisinopri l medicatio n Not available Not available Not available 11/07/2023 80266 RxNorm MARCOS Altamirano [facility] & [place] 4 08:03:38 548783 morphine medicatio n Not available Not available Not available 11/07/2023 7052 RxNorm MARCOS Altamirano [facility] [place] 4 08:03:44 992768 rosuvasta tin medicatio n Not available Not available Not available 11/07/2023 78339 2 RxNorm MARCOS Altamirano [facility] & [place] 4 08:03:50 770739 Substance with tetracycl ine structure (substanc e) medicatio n Not available Not available Not available 11/07/2023 06193 8001 SNOMED [facility]OS [facility] [place] 4 08:03:56 464735 Substance with sulfonami de structure and antibacte rial mechanism of action (substanc e) medicatio n Not available Not available Not available 11/11/2023 36591 8003 SNOMED MARCOS Benites [facility] & [place] 4 14:05:52 Medications Name Sig Start Date Stop Date Status Note LastModified by Organization Details LastModified Time silver sulfadiazin e 1 % topical cream APPLY A 1/16 INCH THICK LAYER TO ENTIRE BURN AREA BY TOPICAL ROUTE TWICE PER DAY. 11/10 completed Not Available Not Available Not Available valacyclovi r 1 gram tablet TAKE 1 TABLET BY MOUTH EVERY 12 HOURS FOR 10 DAYS 11/10 completed Not Available Not Available Not Available Accu-Chek Softclix Lancets USE DIRECTED active Not Available Not Available No t Available methimazole 5 mg tablet Take 1 tablet every day by oral route. active Not Available Not Available No t Available levofloxaci n 500 mg tablet TAKE 1 TABLET BY MOUTH EVERY 24 HOURS FOR 7 DAYS. 11/10 completed Not Available Not Available Not Available ezetimibe 10 mg tablet Take 1 tablet every day by oral route. active Not Available Not Available No t Available magnesium active Not Available Not Liseth ilable Not Available Vitamin C active Not Available Not Liseth ilable Not Available Vitamin D3 active Not Available Not Av ailable Not Available Accu-Chek Guide test strips USE DIRECTED active Not Available Not Available No t Available turmeric Take 3 capsules daily active Not Available Not Available No t Available Vitals Date Recorded Body height Body mass index (BMI) Body weight Body temperature Heart rate Respiratory rate Systolic And Diastolic Provider Name and Address Organization Details Last Updated DateTime 4 163.83 cm 35.7 kg/m2 72700.9 9 g 97.9 [degF] 48 /min 16 /min 158/73 mm[Hg] Karen CAREY [facility] & [place] 4 14:05:12 Social History Question Answer Notes LastModified by Organizat Darudar Details LastModified Time Tobacco Smoking Status Never Smoker Cathy Templeton [facility], [place] - [facility] - [place] & [place] 11/07/2023 08:04:10 Do You Have An Advance Directive? Yes [email or web address] Information not available 11/11/2023 Are You Blind Or Do You Have Difficulty Seeing? Yes [email or web address] Information not available 11/11/2023 What Is Your Level Of Caffeine Consumption? Occasional [email or web address] Information not available 11/11/2023 What Type Of Diet Are You Following? DIABETIC [email or web address] Information not available 11/11/2023 What Was The Date Of Your Most Recent Tobacco Screening? 11/08/2023 [email or web address] Information not available 11/11/2023 Are You Passively Exposed To Smoke? No [email or web address] Information not available 11/11/2023 Sex: Female Functional Status Question Answer Note LastModified by [employer] Details LastModified Time Do you use any illicit or recreational drugs? No [email or web address] Information not available 11/11/2023 Do you or have you ever used any other forms of tobacco or nicotine? No [email or web address] Information not available 11/11/2023 What is your level of alcohol consumption? Occasional Information not available 11/11/2023 What is your exercise level? Occasional [email or web address] Information not available 11/11/2023 Mental Status Question Answer Note LastModified by Organization D etails LastModified Time Do you feel stressed (tense, restless, nervous, or anxious, or unable to sleep at night)? [id number] [email or web address] Information not available 11/11/2023 Family History Relationship Description Onset Age of this Age Resolved Age Notes LastModified by Organization Details LastModified Time Mother Chronic obstructive pulmonary disease pt. added direct ly (11/07) [email or web address] Not available 11/08/2023 17:02:59 Father Chronic obstructive pulmonary disease pt. added direct ly (11/07) [email or web address] Not available 11/08/2023 17:03:00 Brother Chronic obstructive pulmonary disease pt. added direct ly (11/07) [email or web address] Not available 11/08/2023 17:03:00 Paternal Grandmother Disorder of endocrine system pt. added direct ly (11/07) [email or web address] Not available 11/08/2023 17:03:17 Paternal Grandmother Kidney disease pt. added direct ly (11/07) [email or web address] Not available 11/08/2023 17:03:36 Medical History Condition Response Diabetes Y Obesity Y Vision or Eye Problems Y Arthritis Y Back Problems Y Thyroid Problems Y High Cholesterol Y Spine Problems Y Headaches Y Obstructive Sleep Apnea Y Hypertension Y Gynecological HistoryNo gynecological history recorded. Obstetrics History GPAL:G 0 P 0 0 0 0 Past Encounters Encounter ID Performer Location Encounter Start Date Encounter Closed Date Diagnosis/Indication Diagnosis SNOMED-CT Code Diagnosis ICD10 Code Diagnosis IMO Codes Diagnosis Note [id number] Gibson Ball MD [address] [place] [address] [place] [phone] 11/11/2023 13:40:41 11/11/2023 14:31:50 Multinodular goiter 240962099 E04.2 Health Concerns Section Related Observation LastModified by Organization Detai ls LastModified Time None Recorded Concern Status LastModified by Organization Details LastModified Time None Recorded Advance Directives Directive Y: Payers Insurance Date Sequence Insurance Name Policy Number Policy Rios Covered Member ID Rios Member ID Guarantor Name 02/03/2025 2 [place]ARE[place] Lenora Rodriguez [id number] Lenora Rodriguez 02/03/2025 1 [employer] (MEDICARE REPLACEMENT/ ADVANTAGE - PPO) Lenora Rodriguez [id number] Lenora Rodriguez Notes Date Note Type Note Provider Name and Address Organization Details Recorded Time 11/11/2023 text/html Patient is here evaluation of thyroid, she had an Ultrasound 10/17/23. 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 Patient is here evaluation of thyroid, she had an Ultrasound 10/17/23. She has hx of merckel cell cancer. Patient presents for evaluation management of thyroid nodules noted on thyroid ultrasound. Patient has a history of thyroid nodule previously biopsied in [place]. Patient had thyroid ultrasound 2020. A follow-up ultrasound in 2023 showed a new nodule in the right thyroid lobe with stable nodule in left thyroid lobe. Patient denies any particular symptoms related the thyroid, though states has experienced some difficulty swallowing past year and a half. Gibson Ball MD [address] [facility],[address], [place], [address], [facility] - [place] - [place] & [place] 11/11/2023 14:42:14 OBGyn Episode No OBEpisode recorded.
--- OUTSIDE RECORDS SUMMARY | 2025-03-09 12:21 | XMS_ITS | Clinical Summary ---
Author Organization [facility] Address [address] [place] [address] Care Team Providers Care Stretch Machine Operator Name Role Phone Carolynn Pelletier MD Primary Care Provider [phone] Source Comments This information has been disclosed [...] therelease of HIV test results or diagnoses. [id number] Allergies Active Allergy Reactions Criticality [...] - Td or Tdap) 06/09/2027 06/09/2017 Insurance [employer] PPO MEDICARE Care Teams Stretch Machine Operator Relationship Specialty Start Date End Date Carolynn Pelletier MD [address] [place] [address] [address] [place] [address] PCP - General Family Medicine 12/31/23
--- OUTSIDE RECORDS SUMMARY | 2025-03-09 12:21 | XMS_ITS | Clinical Summary ---
Author Organization [facility] Address [address] [place] [address] Care Team Providers Care Head Cd Reactor Operator Name Role Phone Mamadou Singletary PA-C Primary [...] available for review, despite reviewing records from [facility] and [facility] Most likely, [...] Type Department Care Team Description 02/11/2025 Telephone [facility] ENDOCRINOLOGY [address] [facility] [address] [place] [address] Mamadou Singletary PA-C 01/31/2025 Results Follow-Up [facility] ENDOCRINOLOGY [address] [place] [address] Mamadou Singletary PA-C 01/18/2025 1:00 PM EDT - 01/18/2025 11:59 PM EDT Hospital Encounter [facility] NUCLEAR MEDICINE [address] [place] [phone] Mamadou Singletary PA-C Multinodular goiter; Hyperthyroidism Discharge Disposition: Home or Self Care 01/18/2025 Travel 01/11/2025 Telephone [facility] ENDOCRINOLOGY 30[address] [facility] 100 [place] [address] Mamadou Singletary PA-C 01/03/2025 Telephone [facility] ENDOCRINOLOGY 30[address] [facility] 100 [place] [address] Mamadou Singletary PA-C 12/29/2024 Results Follow-Up [facility] ENDOCRINOLOGY [address] [address] Mamadou Singletary PA-C 12/28/2024 1:00 PM EDT Office Visit [facility] ENDOCRINOLOGY [address] [address] Mamadou Singletary PA-C Hyperthyroidism (Primary [...] Description 05/02/2025 1:00 PM EST Office Visit [facility] CARDIOLOGY 1720 [facility] [address] [place] [phone] Krishna Baumann, DO 17[address] [facility] [address] [facility] [address] [place] [address] Health Maintenance Due Date Last Done Comments [...] MD 01/30/2025 8:39 AM EDT Workstation ID: [id number] Narrative 01/30/2025 8:39 AM EDT DATE OF [...] the patient both by me and the non licensed nuclear plant operator. She was furnished with a written [...] the patient both by me and the non licensed nuclear plant operator. She was furnished with a writtenlist of posttreatment contact precautions for her reference. She indicatedher understanding and agrees to treatment. Accordingly, the dose of 30.8mCi of iodine-131 was administered the patient without complication. IMPRESSION: Right I-131 thyroid therapy without complication. Electronically Signed: Thomas Gonzalez MD 01/30/2025 8:39 AM EDT Workstation ID: [id number] Mamadou Singletary PA-C IM NM ORDERABLES Final Res ult * Thyroid Stimulating Immunoglobulin (12/28/2024 1:52 PM EDT) Thyroid Stimulating Immunoglobulin <0.10 0.00 - 0.55 IU/L 01/02/2025 4:09 PM EDT [facility] Blood Structure of left upper limb / Unknown Venipuncture / Unknown 12/28/2024 1:52 PM EDT 12/28/2024 1:53 PM EDT Narrative [facility] - 01/02/2025 4:09 PM EDT Performed at: [address] [place] [id number] Klystrom Tube Tester: Eder Mauricio MD, Phone: [phone] Mamadou Ednacot PA-C LAB BLOOD ORDERABLES Final Result Performing Organization Address City/[facility]/ZIP Co de Phone Number [facility] [address] [place] [address], [place] [phone] * T3, Free (12/28/2024 1:52 PM EDT) T3, Free 4.13 2.00 - 4.40 pg/mL 12/29/2024 12:47 AM EDT [facility] Blood Venipuncture / Unknown 12/28/2024 1:52 PM EDT 12/28/2024 1:53 PM EDT Gerrya Ednacot PA-C LAB BLOOD ORDERABLES Final Result Performing Organization Address [facility]/ZIP Co de Phone Number [facility]
[address] [place] [address], * (ABNORMAL) TSH (12/28/2024 1:52 PM EDT) [facility] TSH 0.017(L) 0.270 - 4.200 uIU/mL 12/29/2024 12:47 AM EDT [facility] Blood Venipuncture / Unknown 12/28/2024 1:52 PM EDT 12/28/2024 1:53 PM EDT Mamadou Ednacot PA-C LAB BLOOD ORDERABLES Final Result Performing Organization Address [facility]/ZIP Co de Phone Number [facility]
[address] [place] [address], * T4, Free (12/28/2024 1:52 PM EDT) Free T4 1.32 0.92 - 1.68 ng/dL 12/29/2024 12:47 AM EDT [facility] Blood Venipuncture / Unknown 12/28/2024 1:52 PM EDT 12/28/2024 1:53 PM EDT Mamadou Singletary PA-C LAB BLOOD ORDERABLES Final Result [facility]
[address] [place] [address], from Last 3 Months Insurance MEDICARE A & [employer] Care Teams Head Cd Reactor Operator Relationship Specialty Start Date End Date Mamadou Singletary PA-C [address] [address] PCP - General Physician Oncology Pharmacist 01/18/25
--- OUTSIDE RECORDS SUMMARY | 2025-03-09 12:21 | XMS_ITS | Clinical Summary ---
Author Organization [facility] Address [address] [place] [address] Care Team Providers Care Repair Miller Name Role Phone None, None Primary Care [...] EDT) Cholesterol 228(H) 0 - 199 mg/dL [facility] Comment: TOTAL CHOLESTEROL INTERPRETATION: Less than 200 mg/dL Desireable 200-239 mg/dL Borderline Greater or Equal to 240 mg/dL High LDL Calculated 158(H) 0 - 100 mg/dL [facility] Comment: LDL CHOLESTEROL INTERPRETATION: Less than 100 mg/dL Optimal 100-129 mg/dL Near optimal/above optimal 130-159 mg/dL Borderline High 160-189 mg/dL High Greater or Equal to 190 mg/dL Very High HDL 43 40 - 180 mg/dL [facility] Comment: HDL CHOLESTEROL INTERPRETATION: Less than 40 mg/dL Low Greater than 60 mg/dL Desirable Triglycerides 136 0 - 150 mg/dL [facility] Comment: TOTAL TRIGLYCERIDE INTERPRETATION: Less than 150 mg/dL Normal 150-199 mg/dL Borderline HIgh 200-499 mg/dL High Greater or Equal to 500 mg/dL Very High Plasma (Plasma) 02/05/2012 1 1:30 AM EDT 02/05/2012 1:59 PM EDT Narrative [facility] - 02/05/2012 2:56 PM EDT Has the patient fasted?->Yes us Jude Segundo MD CHEMISTRY ORDERABLES Final Res ult [facility] [address] from Last 3 Months or Most Recently Relevant to Health Maintenance Insurance MEDICARE MEDICARE Care Teams Repair Miller Relationship Specialty Start Date End Date None, None [address] [place] [address] PCP - General 04/23/19
--- OUTSIDE RECORDS SUMMARY | 2025-03-09 12:21 | XMS_ITS | Encounter Summary ---
Author Organization [facility] Address [address] [place] [address] Care Team Providers Care Editor Trade Journal Name Role Phone Ernesto Hernandez MD Primary Care Provider [phone] Encounter Details Date Type Department Care Team (Late st Contact Info) Description 01/03/2025 Telephone [facility] ENDOCR[facility] 30[address] [facility] 100 [place] [address] Sonia Singletary PA-C 1773 [facility] [address] [place] [address] Social History Tobacco Use Types Packs/Day Years [...] SEE WHAT SONIA SUGGESTS. PHONE NUMBER IS [phone] documented in this encounter Plan of Treatment Upcoming Encounters Date Type Department Care Team (Late st Contact Info) Description 05/02/2025 1:00 PM EST Office Visit [facility]IOLOGY [address] [facility] [address] [place] [address] Krishna Baumann, DO [address] [facility] [address] [place] [address] documented as of this encounter Visit Diagnoses Diagnosis Hyperthyroidism Thyrotoxicosis without mention of goiter or other cause, without mention of thyrotoxic crisis or storm documented in this encounter Care Teams Editor Trade Journal Relationship Specialty Start Date End Date Ernesto Hernandez MD [address] [facility] [address] [place] [address] PCP - General Internal Medicine 12/28/24 01/17/25 documented as of this encounter
--- OUTSIDE RECORDS SUMMARY | 2025-03-09 12:21 | XMS_ITS | Encounter Summary ---
Author Organization [facility] Address [address] [place] [address] Care Team Providers Care Nuclear Powerplant Supervisor Name Role Phone Mamadou Singletary PA-C Primary Care Provider +1 [phone] Encounter Details Date Type Department Care Team [...] Description 05/02/2025 1:00 PM EST Office Visit [facility] CARDIOLOGY [address] [place] [phone] Krishna Baumann, DO 1720 [facility] [address] [place] [address] documented as of this encounter Visit Diagnoses Not on filedocumented in this encounter Care Teams Nuclear Powerplant Supervisor Relationship Specialty Start Date End Date Mamadou Singletary PA-C 1775 [facility] [address] [place], [place] [id number] PCP - General Physician Edge Burnisher Uppers 01/18/25 documented as of this encounter
--- OUTSIDE RECORDS SUMMARY | 2025-03-09 12:22 | XMS_ITS | Encounter Summary ---
Author Organization [facility] Address [address] [place] [address] Care Team Providers Care Type Photography Supervisor Name Role Phone Mamadou Singletary PA-C Primary Care Provider +[phone] Encounter Details Date Type Department Care Team (Late st Contact Info) Description 02/11/2025 Telephone [facility] MEDICAL [facility] ENDOCRINOLOGY [address] [facility] [address] [place] [address] Mamadou Singletary PA-C [address] [facility] [address] [place] [address] Social History Tobacco Use Types Packs/Day Years [...] Description 05/02/2025 1:00 PM EST Office Visit [facility] CARDIOLOGY [address] [phone] Krishna Baumann, DO 1720 [facility] [address] [address] documented as of this encounter Visit Diagnoses Not on filedocumented in this encounter Care Teams Type Photography Supervisor Relationship Specialty Start Date End Date Mamadou Singletary PA-C 1775 [facility] [address] [place] [address] PCP - General Physician Radio Division Officer 01/18/25 documented as of this encounter
--- OUTSIDE RECORDS SUMMARY | 2025-03-09 12:22 | XMS_ITS | Encounter Summary ---
Author Organization [facility] Address [address] [address] Care Team Providers Care Manpower Development Manager Name Role Phone Mamadou Singletary PA-C Primary Care Provider +[phone] Encounter Details Date Type Department Care Team (Late st Contact Info) Description 12/29/2024 Results Follow-Up [facility] ENDOCRINOLOGY [facility] [address] Mamadou Singletary PA-C [address] [place], [place] [phone] Social History Tobacco Use Types Packs/Day Years [...] Description 05/02/2025 1:00 PM EST Office Visit [facility] CARDIOLOGY [address] [place] [address] Krishna Baumann, DO [address] [place] [address] documented as of this encounter Visit Diagnoses Not on filedocumented in this encounter Care Teams Manpower Development Manager Relationship Specialty Start Date End Date Mamadou Singletary PA-C [address] [place] [address] PCP - General Physician Shift Foreman 01/18/25 documented as of this encounter
--- OUTSIDE RECORDS SUMMARY | 2025-03-09 12:22 | XMS_ITS | Encounter Summary ---
Author Organization [facility] Address [address] [place] [address] Care Team Providers Care Assistant Branch Operations Manager Name Role Phone Mamadou Singletary PA-C Primary Care Provider [phone] Encounter Details Date Type Department Care Team (Late st Contact Info) Description 01/11/2025 Telephone [facility] MEDICAL [facility] ENDOCRINOLOGY [address] [facility] [address] [place] [address] Mamadou Singletary PA-C [address] [facility] [address] [place] [address] Social History Tobacco Use Types Packs/Day Years [...] PATIENT RETURNED OUR CALL. PHONE NUMBER IS [phone] * Telephone Encounter - Rohini Dejesus - [...] she get a call back to [facility], [facility] her, juan pablo documented in this encounter Plan of Treatment Upcoming Encounters Date Type Department Care Team (Late st Contact Info) Description 05/02/2025 1:00 PM EST Office Visit [facility] CARDIOLOGY [address] [place] [phone] Krishna Baumann, DO 1720 [facility] [address] [place], [place] [phone] documented as of this encounter Visit Diagnoses Not on filedocumented in this encounter Care Teams Assistant Branch Operations Manager Relationship Specialty Start Date End Date Mamadou Singletary PA-C [address] [facility] [address] [place], [place] [phone] PCP - General Physician Tire Mounter 01/18/25 documented as of this encounter
--- OUTSIDE RECORDS SUMMARY | 2025-03-09 12:22 | XMS_ITS | Clinical Summary ---
Author Organization [facility] Address [address] [place] [address] Care Team Providers Care Estate Attorney Name Role Phone Pcp, No Primary Care Provider Unavailabl e Encounters Date Type Department Care Team Description 01/21/2025 10:55 AM EDT Ancillary Procedure [address] [facility] [address] [place] [phone] Chest pain from Last 3 Months Social [...] r (1 - 1-dose 75+ series) 2021 [id number] Vaccine (1 - 20 24-25 season) 2025 [...] Data Image Acquisition: Images were acquired at [facility] in [place], and interpreted at [facility]. A 128-slice MDCT scanner (Appteraa View) was used for data acquisition. A [...] was reviewed interactively on an advanced workstation (Crowdpac) capable of 2 and 3 dimensional displays [...] Data Image Acquisition: Images were acquired at [facility] in [place], andinterpreted at [facility]. A 128-slice MDCT scanner (Punch Entertainment) was used for data acquisition. A non-contrast [...] Data wasreviewed interactively on an advanced workstation (Crowdpac) capable of 2and 3 dimensional displays in [...] MD on 01/21/2025 2:38 PM Arielle Lee CEMENT WORKER IMG CT PROCEDURES Final Resu lt from Last 3 Months Insurance [employer]IC[employer] Care Teams Estate Attorney Relationship Specialty Start Date End Date Pcp, Natalia [address] [place] [address] PCP - General Family Medicine 04/17/23
[2025-03-09 12:23] LABS: Chloride 102 mmol/L (98-107)
[2025-03-09 12:24] LABS: Albumin Level 3.7 g/dl (3.5-5.0); Potassium 4.3 mmoL/L (3.5-5.1); Sodium 136 mmol/L (136-145)
[2025-03-09 12:27] LABS: Anion Gap 10.3 mEq/L (5-15); Calcium 10.2 mg/dl (8.4-10.2); Carbon Dioxide 28 mmol/L (22.0-30.0); Glucose 124 mg/dl (74-100); Phosphorous 3.4 mg/dl (2.5-4.5)
[2025-03-09 12:40] LABS: Blood Urea Nitrogen 18 mg/dl (7-17); Creatinine,Serum 0.60 mg/dl (0.52-1.04); Estimated Glomerular Filt Rate 96 ml/min (>60); GFR (African American) 117 ML/MIN (>60)
[2025-03-09 12:54] LABS: 25-OH Vitamin D, Total 66.3 ng/mL (30-100); Hemoglobin A1C 6.1 % (4.0-6.0)
[2025-03-09 12:55] LABS: Free T4 (Free Thyroxine) 1.34 ng/dl (0.78-2.19)
[2025-03-09 12:58] LABS: Thyroid Stimulating Hormone < 0.02 uIU/mL (0.465-4.68)
[2025-03-09 15:47] LABS: Albumin Level 3.8 g/dl (3.5-5.0)
[2025-03-09 15:50] LABS: Lipase 91 U/L (23-300); Total Protein,Serum 6.5 g/dl (6.3-8.2)
[2025-03-09 16:04] LABS: Alanine Aminotransferase 24 U/L (12-78); Aspartate Amino Transferase 31 U/L (14-36)
[2025-03-09 16:19] LABS: Alkaline Phosphatase 118 U/L (38-126); Bilirubin,Direct 0.2 mg/dl (0.0-0.4); Bilirubin,Indirect 0.6 mg/dL (0.0-0.9); Bilirubin,Total 0.8 mg/dl (0.2-1.3)
[2025-03-09 16:27] LABS: Bilirubin,Unconjugated 0.5 mg/dL (0.0-1.1)
[2025-03-10 17:25] LABS: Calcium, Ionized 5.4 mg/dL (4.5-5.6)
== END 2025-03-09 23:59 | disposition home or self-care (01) ==
LOC: RT 11:10
PROVIDERS: Student in an Organized Health Care Education/Training Program; Visit Provider Internal Medicine
DX: I11.9 Hypertensive heart disease without heart failure (principal); E05.90 Thyrotoxicosis, unspecified without thyrotoxic crisis or storm; R42 Dizziness and giddiness; R79.89 Other specified abnormal findings of blood chemistry; E21.3 Hyperparathyroidism, unspecified; E11.9 Type 2 diabetes mellitus without complications; I25.119 Atherosclerotic heart disease of native coronary artery with unspecified angina pectoris
CPT/HCPCS: 36415; 80069; 80076; 82306; 82330; 83036; 83690; 83970; 84439; 84443; 93308

== ENCOUNTER 2025-04-13 14:12 | Outpatient (CLI) | payer MEDICARE, OTHER, SELFPAY ==
--- OUTSIDE RECORDS SUMMARY | 2025-04-13 14:16 | XMS_ITS | Clinical Summary ---
Author Organization [facility] Address [address] [place] [address] Care Team Providers Care Pm Technician Name Role Phone Mamadou Singletary PA-C Primary [...] available for review, despite reviewing records from [facility] and [facility] Most likely, well-controlled on methimazole, but [...] Telephone [facility] ENDOCRINOLOGY [address] [facility] [address] [place] [address] Mamadou Singletary PA-C 01/31/2025 Results Follow-Up [facility] ENDOCRINOLOGY [address] [place] [address] Mamadou Singletary PA-C 01/18/2025 1:00 PM EDT - 01/18/2025 11:59 PM EDT Hospital Encounter [facility] NUCLEAR MEDICINE [address] [place] [phone] Mamadou Singletary PA-C Multinodular goiter; Hyperthyroidism Discharge Disposition: Home or Self Care 01/18/2025 Travel 01/11/[address] [facility] ENDOCRINOLOGY [address] [facility] [address] [place] [address] Mamadou Singletary PA-C from Last 3 Months Social History Tobacco [...] Description 05/02/2025 1:00 PM EST Office Visit [facility] CARDIOLOGY [address] [address] [place] [address] Krishna Baumann DO [address] [place] [address] Health Maintenance Due Date Last Done Comments [...] 01/18/2025 2:33 PM EDT Multinodular goiter Hyperthyroidism from Last 3 Months Results * LABS SCANNED (02/08/2025) us Blaise Vázquez MD LAB BLOOD ORDERABLES Final Result * NM Therapy Hyperthyroid Initial (01/18/2025 2:33 PM EDT) Anatomical Region Laterality Modality Head and Neck Nuclear Medicine 01/30/2025 8:37 AM EDT Impressions 01/30/2025 8:39 AM EDT Right I-131 thyroid therapy without complication. Electronically Signed: Thomas Gonzalez MD 01/30/2025 8:39 AM EDT Workstation ID: [id number] Narrative 01/30/2025 8:39 AM EDT DATE OF [...] the patient both by me and the mechanical engineering technologist. She was furnished with a written [...] the patient both by me and the mechanical engineering technologist. She was furnished with a writtenlist of posttreatment contact precautions for her reference. She indicatedher understanding and agrees to treatment. Accordingly, the dose of 30.8mCi of iodine-131 was administered the patient without complication. IMPRESSION: Right I-131 thyroid therapy without complication. Electronically Signed: Thomas Gonzalez MD 01/30/2025 8:39 AM EDT Workstation ID: [id number] Mamadou Singletary PA-C IMG NM ORDERABLES Final Res ult from Last 3 Months Insurance MEDICARE A [employer] Care Teams Pm Technician Relationship Specialty Start Date End Date Mamadou Singletary PA-C [address] [address] PCP - General Physician Manager Business Development Hospice 01/18/25
--- OUTSIDE RECORDS SUMMARY | 2025-04-13 14:16 | XMS_ITS | Encounter Summary ---
Author Organization [facility] Address [address] [place] [address] Care Team Providers Care Event Host Name Role Phone Mamadou Singletary PA-C Primary Care Provider +1 [phone] Encounter Details Date Type Department Care Team (Late st Contact Info) Description 02/11/2025 Telephone [facility] MEDICAL [facility] ENDOCRINOLOGY [address] [facility] [address] [place] [address] Mamadou Singletary PA-C [address] [facility] [address] [place] [address] Social History Tobacco Use Types Packs/Day Years [...] Description 05/02/2025 1:00 PM EST Office Visit [facility] CARDIOLOG[facility] [address] [phone] Krishna Baumann, DO 1720 [facility] [address] [address] documented as of this encounter Visit Diagnoses Not on filedocumented in this encounter Care Teams Event Host Relationship Specialty Start Date End Date Mamadou Singletary PA-C 1775 [facility] [address] [place] [address] PCP - General Physician Sales Architect 01/18/25 documented as of this encounter
--- OUTSIDE RECORDS SUMMARY | 2025-04-13 14:16 | XMS_ITS | Clinical Summary ---
Author Organization [facility] Address [address] [place] [address] Care Team Providers Care Artificial Breast Fabricator Name Role Phone Pcp, No Primary Care Provider Unavailabl e Encounters Date Type Department Care Team Description 01/21/2025 10:55 AM EDT Ancillary Procedure [address] [facility] [address] [place] [address] [phone] Chest pain from Last 3 Months Social [...] r (1 - 1-dose 75+ series) 2021 [id number] Vaccine (1 - 20 24-25 season) 2025 [...] Data Image Acquisition: Images were acquired at [facility] in [place], and interpreted at [facility]. A 128-slice MDCT scanner (MAKO Surgicala View) was used for data acquisition. A [...] was reviewed interactively on an advanced workstation (Edusoft) capable of 2 and 3 dimensional displays [...] Data Image Acquisition: Images were acquired at [facility] in [place], andinterpreted at [facility]. A 128-slice MDCT scanner (FiberLight) was used for data acquisition. A non-contrast [...] Data wasreviewed interactively on an advanced workstation (Edusoft) capable of 2and 3 dimensional displays in [...] MD on 01/21/2025 2:38 PM Arielle Lee PHARMACEUTICAL LABORATORY TECHNICIAN IMG CT PROCEDURES Final Resu lt from Last 3 Months Insurance [employer] Care Teams Artificial Breast Fabricator Relationship Specialty Start Date End Date Pcp, Natalia [address] [place] [address] PCP - General Family Medicine 04/17/23
--- OUTSIDE RECORDS SUMMARY | 2025-04-13 14:16 | XMS_ITS | Encounter Summary ---
[facility] Address [address] [place] [address] Care Team Providers Care Margin Trimmer Name Role Phone Mamadou Singletary PA-C Primary Care Provider Encounter Details Date Type Department Care Team (Late st Contact Info) Description 01/31/2025 Results Follow-Up [facility] [address] Mamadou Singletary PA-C [address] [place], [place] [phone] Social History Tobacco Use Types Packs/Day Years [...] Description 05/02/2025 1:00 PM EST Office Visit [facility] [address]20 [facility] 400 [place] [phone] Krishna Baumann, DO 1720 [facility] [address] [place] [address] documented as of this encounter Visit Diagnoses Not on filedocumented in this encounter Care Teams Margin Trimmer Relationship Specialty Start Date End Date Mamadou Singletary PA-C 1775 [facility] [address] [place] [address] PCP - General Physician Data Entry Coordinator 01/18/25 documented as of this encounter
--- OUTSIDE RECORDS SUMMARY | 2025-04-13 14:16 | XMS_ITS | Clinical Summary ---
Author Organization [facility] Address [address] [place] [address] Care Team Providers Care Geek Squad Manager Name Role Phone None, None Primary Care [...] Depression Screening 06/09/2024 COVID-19 Vaccine (1 - 2024- season) 2025 Influenza Vaccination (#1) 2025 Procedures Procedure Name Priority Date/Time Associated Diagnosis Comments LIPID PROFILE Routine 02/05/2012 11:30 AM EDT HTN (hypertension) Edema Arthritis Foot ulcer Peripheral neuropathy Osteomyelitis Hyperglycemia from Last 3 Months or Most Recently Relevant to Health Maintenance Results * (ABNORMAL) LIPID PROFILE (02/05/2012 11:30 AM EDT) Cholesterol 228(H) 0 - 199 mg/dL [facility] Comment: TOTAL CHOLESTEROL INTERPRETATION: Less than 200 mg/dL Desireable 200-239 mg/dL Borderline Greater or Equal to 240 mg/dL High LDL Calculated 158(H) 0 - 100 mg/dL [facility] Comment: LDL CHOLESTEROL INTERPRETATION: Less than 100 mg/dL Optimal 100-129 mg/dL Near optimal/above optimal 130-159 mg/dL Borderline High 160-189 mg/dL High Greater or Equal to 190 mg/dL Very High HDL 43 40 - 180 mg/dL [facility] Comment: HDL CHOLESTEROL INTERPRETATION: Less than 40 mg/dL Low Greater than 60 mg/dL Desirable Triglycerides 136 0 - 150 mg/dL [facility] Comment: TOTAL TRIGLYCERIDE INTERPRETATION: Less than 150 mg/dL Normal 150-199 mg/dL Borderline HIgh 200-499 mg/dL High Greater or Equal to 500 mg/dL Very High Plasma (Plasma) 02/05/2012 1 1:30 AM EDT 02/05/2012 1:59 PM EDT Narrative [facility] - 02/05/2012 2:56 PM EDT Has the patient fasted?->Yes us Jude Segundo MD CHEMISTRY ORDERABLES Final Res ult [facility] [address] from Last 3 Months or Most Recently Relevant to Health Maintenance Insurance MEDICARE MEDICARE Care Teams Geek Squad Manager Relationship Specialty Start Date End Date None, None [address] [place] [address] PCP - General 04/23/19
--- OUTSIDE RECORDS SUMMARY | 2025-04-13 14:16 | XMS_ITS | Clinical Summary ---
Author Organization [facility] Address [address] [place] [address] Care Team Providers Care Photo Cartographer Name Role Phone Carolynn Pelletier MD Primary Care Provider [phone] Source Comments This information has been disclosed [...] therelease of HIV test results or diagnoses. [id number] Allerg[facility] Active Allergy Reactions Criticality Noted [...] - Td or Tdap) 06/09/2027 06/09/2017 Insurance [employer] P[employer] MEDICARE Care Teams Photo Cartographer Relationship Specialty Start Date End Date Carolynn Pelletier MD [address] [place] [address] [address] [place] [address] PCP - General Family Medicine 12/31/23
--- OUTSIDE RECORDS SUMMARY | 2025-04-13 14:16 | XMS_ITS | Encounter Summary ---
[facility] Address [address] [place] [address] Care Team Providers Care Director Of Research Name Role Phone Mamadou Singletary PA-C Primary Care Provider Encounter Details Date Type Department Care Team (Late st Contact Info) Description 12/29/2024 Results Follow-Up [facility] ENDOCRINOLOGY [facility] [address] [address] Mamadou Singletary PA-C [address] [place], [place] [phone] Social History Tobacco Use Types Packs/Day Years [...] Visit [facility] CARDIOLOGY [address] [place] [address] Krishna Baumann, DO [address] [place] [address] documented as of this encounter Visit Diagnoses Not on filedocumented in this encounter Care Teams Director Of Research Relationship Specialty Start Date End Date Mamadou Singletary PA-C [address] [place] [address] PCP - General Physician Manager Of Digital 01/18/25 documented as of this encounter
[2025-04-13 15:06] LABS: Albumin Level 5.0 g/dl (3.5-5.0); Chloride 103 mmol/L (98-107); Potassium 4.5 mmoL/L (3.5-5.1); Sodium 138 mmol/L (136-145)
[2025-04-13 15:08] LABS: Blood Urea Nitrogen 17 mg/dl (7-17); Creatinine,Serum 0.70 mg/dl (0.52-1.04); Estimated Glomerular Filt Rate 81 ml/min (>60); GFR (African American) 98 ML/MIN (>60)
[2025-04-13 15:09] LABS: Alanine Aminotransferase 17 U/L (12-78); Albumin/Globulin Ratio 2.6 (1.1-1.8); Alkaline Phosphatase 114 U/L (38-126); Anion Gap 10.5 mEq/L (5-15); Aspartate Amino Transferase 25 U/L (14-36); Bilirubin,Direct 0.1 mg/dl (0.0-0.4); Bilirubin,Indirect 0.7 mg/dL (0.0-0.9); Bilirubin,Total 0.8 mg/dl (0.2-1.3); Bilirubin,Unconjugated 0.7 mg/dL (0.0-1.1); Calcium 10.0 mg/dl (8.4-10.2); Carbon Dioxide 29 mmol/L (22.0-30.0); Globulin 1.9 g/dL (1.3-3.2); Glucose 99 mg/dl (74-100); Lipase 86 U/L (23-300); Total Protein,Serum 6.9 g/dl (6.3-8.2)
[2025-04-13 15:25] LABS: Free T4 (Free Thyroxine) 0.69 ng/dl (0.78-2.19)
[2025-04-13 15:40] LABS: Thyroid Stimulating Hormone 5.17 uIU/mL (0.465-4.68)
== END 2025-04-13 23:59 | disposition home or self-care (01) ==
LOC: LAB 14:14
PROVIDERS: Visit Provider Student in an Organized Health Care Education/Training Program
DX: E05.90 Thyrotoxicosis, unspecified without thyrotoxic crisis or storm (principal)
CPT/HCPCS: 36415; 80053; 82248; 83690; 84439; 84443